=== PATIENT | female | born 1965 | race Caucasian/White ===

== ENCOUNTER 2019-10-01 17:03 | Outpatient (CLI) | payer OTHER, SELFPAY ==
--- NOTE | ~2019-10-01 | CT_ITS ---
EXAMINATION: CT lung screening DATE: 10/01/2019 17:30 INDICATION: Personal history of tobacco dependence, prior smoker with 45 pack year history TECHNIQUE: Computed tomography (CT) of the chest was performed without intravenous contrast. The dose -length product (DLP) was 66.65 mGy-cm. Automated exposure control and iterative reconstruction techn ique were employed. COMPARISON: 04/30/2018 FINDINGS: There is mild emphysema. Calcified pulmonary nodules are consistent with old granulomatous disease. No suspicious pulmonary nodules are identified. There is chronic focal scarring or atelectas is of the middle lobe. The lungs are free of focal airspace opacities. There is no pleural effusion o r pneumothorax. No pathologically enlarged thoracic lymph nodes are identified. The heart size is nor mal. There are surgical changes in the stomach. There is mild thoracic spondylosis. IMPRESSION: 1. Lung-RADS category 1: Negative. Continue annual screening with noncontrast low-dose chest CT in 12 months. Reviewed, dictated and finalized at location B. IMPRESSION: 1. Lung-RADS category 1: Negative. Continue annual screening with noncontrast l ow-dose chest CT in 12 months.
== END 2019-10-01 17:04 | disposition home or self-care (01) ==
LOC: ANHIMG 17:05
PROVIDERS: PCP Emergency Medicine; Visit Provider Emergency Medicine
DX: Z12.2 Encounter for screening for malignant neoplasm of respiratory organs (principal); Z87.891 Personal history of nicotine dependence
CPT/HCPCS: G0297

== ENCOUNTER 2019-11-05 17:04 | Emergency (ER) | payer OTHER, SELFPAY ==
--- NOTE | ~2019-11-05 | XR_ITS ---
EXAMINATION: XR chest 1V portable EXAM DATE: 11/05/2019 17:42 INDICATION: Shortness of breath, low back pain, left-sided posterior rib pain. Symptoms 3 days. Histo ry hypertension. TECHNIQUE: Portable AP frontal chest x-ray was obtained. Comparison is made to prior examination from 03/16/2019. FINDINGS: Scattered lung calcifications, granulomas. The lungs are otherwise clear. There are no ple ural effusions. The cardiomediastinal silhouette is within normal limits. There is no pneumothorax suspected. The bones and soft tissues are unremarkable. IMPRESSION: No acute cardiopulmonary findings. Reviewed, dictated and finalized at location A.
--- NOTE | ~2019-11-05 | CT_ITS ---
EXAMINATION: CT abdomen pelvis w con EXAM DATE: 11/05/2019 18:51 INDICATION: Left upper abdominal pain. TECHNIQUE: Spiral CT of the abdomen and pelvis was performed following intravenous injection of 100 m L Omnipaque 350. Axial, coronal and sagittal images were reviewed. The dose-length product (DLP) fo r this examination was 354.59 mGy-cm. The exposure was tailored according to patient size (auto mA e xposure control), and iterative reconstruction (ASIR) was used as additional dose reduction technique . Comparison is made to prior examination from 03/12/2017. FINDINGS: The liver, spleen, adrenal glands and pancreas are unremarkable. There are surgical clips in the gallbladder fossa. Some biliary duct dilation which is common finding following cholecystecto my. Portal and splenic veins are patent. Kidneys enhance symmetrically. There is no hydronephrosis . Scattered small renal cysts. The uterus is not identified and has likely been surgically resected. The bladder is unremarkable. There is no retroperitoneal or pelvic lymphadenopathy. There is mil d scattered arteriosclerotic disease. The appendix is normal. Gastroesophageal surgical change. There is mild sigmoid colonic diverticulos is. There is no adjacent inflammatory change to suggest diverticulitis. No free intraperitoneal gas . The heart is normal in size. There are no pericardial or pleural effusions. Several basilar gra nulomas. Tract from prior right hip gamma nail. There are no osteoblastic or osteolytic lesions iden tified. There is no significant interval change. IMPRESSION: 1. No acute intra-abdominal findings. Reviewed, dictated and finalized at location A.
[2019-11-05 17:09] VITALS: BP 148/84; PULSE 76; RESP 18; TEMP 37.1; O2SAT 98
--- NOTE | 2019-11-05 17:24 | ECG_ITS ---
Measurements Intervals [place] Rate: 61 P: 52 IA: 144 QRS: 35 QRSD: 101 T: 58 QT: 402 QTc: 407 Interpretive Statements SINUS RHYTHM BORDERLINE T WAVE ABNORMALITY- ANTERIOR LEADS BASELINE ARTIFACT- I, III, AVL, AVF BORDERLINE ECG Electronically Signed On 11-06-2019 7:00:11 CDT by Ronald Cisneros D.O.
--- NOTE | 2019-11-05 17:25 | ED.ABDPAIN ---
HPI - Abdominal Pain General Chief Complaint: Abdominal Pain Stated Complaint: Low Back Pain Time Seen by Provider: 11/05/19 17:13 Source: patient Mode of arrival: ambulatory Limitations: no limitations History of Present Illness HPI narrative: This patient is a 54 year old female who presents for evaluation of left flank pain. She states she developed pain yesterday. Her pain has gradually worsened. Her pain is left flank and it radiates around to left upper abdomen. This pain is worse with movement and breathing. She is chronically on oxycodone 20 mg and she states this is not helping with her pain. She denies associated nausea, vomiting, fever, chills, cough. Related Data Home Medications Medication Instructions Recorded Confirmed alprazolam 1 mg PO 11/05/19 amitriptyline 50 mg PO 11/05/19 escitalopram oxalate 20 mg PO 11/05/19 omeprazole 20 mg PO DAILY 11/05/19 oxycodone 20 mg PO DAILY 11/05/19 Allergies Allergy/AdvReac Type Severity Reaction Status Date / Time metronidazole Allergy Unknown Unknown Verified 11/05/19 17:14 topiramate Allergy Unknown Unknown Verified 11/05/19 17:14 Review of Systems Review of Systems: All systems reviewed & are unremarkable except as noted in HPI and below Constitutional: Constitutional: Denies chills and Denies fever(s) Cardiovascular: Cardiovascular: Denies rapid heart rate and Denies slow heart rate Respiratory: Respiratory: Denies cough, Reports dyspnea and Denies wheezing Gastrointestinal: Gastrointestinal: Reports abdominal pain, Denies nausea and Denies vomiting Genitourinary: Genitourinary: Denies hematuria, Denies dysuria and Reports flank pain [facility] Past Medical History Medical History (Updated 11/05/19 @ 21:35 by Maylin Lackey MD) Angina at rest Arthritis Asthma Bronchitis COPD (chronic obstructive pulmonary disease) CVA (cerebral vascular accident) Degenerative disk disease Diabetes Diverticulitis Emphysema of lung Fibromyalgia GERD (gastroesophageal reflux disease) Hypercholesterolemia Hypertension Irritable bowel syndrome Kidney stone Peripheral neuropathy Pneumonia Rectal polyp Sinus problem UTI (urinary tract infection) Surgical History Surgical History (Updated 03/16/19 @ 21:00 by Elida Gao) H/O inguinal hernia repair H/O: hysterectomy History of hip replacement History of knee replacement Hx of cholecystectomy Hx of tonsillectomy Family History Family History (Updated 02/15/15 @ 09:21 by DOCTOR UNKNOWN) Mother Family history of malignant neoplasm Family history of Alzheimer's disease Other Cerebrovascular accident Diabetes mellitus Family history of cardiovascular disease Family history of kidney disease Hypertension Social History Social History Smoking status: Current every day smoker Alcohol intake: never Gender identity (if verbalized by the patient): Female Exam Const: General: alert Orientation/consciousness: patient oriented x3 Other: mild distress Eyes: EOM: EOMs intact bilaterally Neck: Neck: no lymphadenopathy Chest: Chest palpation & inspection: normal inspection of the chest Resp: Effort & Inspection: normal respiratory effort and no retractions Auscultation: clear to auscultation bilaterally Cardio: Rate: regular rate Rhythm: regular rhythm Heart sounds: no murmurs GI: GI Palp: Yes Soft to palpation, Yes Tenderness to palpation present (GI) (LUQ ), No Guarding due to palpation present (GI) and No Rigid due to palpation Skin: General skin exam: normal color Rashes: no rashes Neuro: General: patient oriented x3 and moves all extremities Course Reevaluation(s) Reevaluation #1: Patient reports valium helped with her pain. I discussed no abnormality found on CT scan. No concern for PE. This may be abdominal wall muscle spasm. Date: 11/05/19 Time: 21:33 Vital Signs Vital signs: Vital Signs Temperature 98.7 F 11/05/19 17:09 Pulse Rate
[2019-11-05 17:52] LABS: Basophils Percent Auto 0.5 % (0.2-1.2); Eosinophils Absolute Auto 0.2 K/mm3 (0-0.3); Eosinophils Percent Auto 1.9 % (0-4.4); Hematocrit 43.5 % (37.0-47.0); Hemoglobin 14.3 g/dL (12.0-15.0); Immature Granulocyte Absolute 0.02 K/mm3 (0.00-0.031); Immature Granulocyte Percent A 0.3 % (0-0.5); Lymphocytes Absolute Auto 2.95 K/mm3 (0.9-3.2); Lymphocytes Percent Auto 38.3 % (18.3-44.2); Mean Corpuscular HGB Conc 32.9 g/dl (32-36); Mean Corpuscular Hemoglobin 29.3 pg (26-34); Mean Corpuscular Volume 89.1 fl (80-100); Mean Platelet Volume 10.3 fl (7.4-10.4); Monocytes Absolute Auto 0.3 K/mm3 (0.1-0.6); Neutrophils Absolute Auto 4.2 K/mm3 (1.3-6.7); Platelet Count Result 275 k/mm3 (150-375); Red Blood Count 4.88 M/mm3 (4.2-5.4); Red Cell Distribution Width 12.2 % (11.5-14.5); White Blood Count 7.7 K/mm3 (4.5-10.0)
[2019-11-05 18:00] LABS: Add Urine Microscopic? YES; Appearance Urine Clear (Clear); Bacteria Urine Trace /hpf; Bilirubin Urine Negative (Negative); Blood Urine Negative (Negative); Color Urine Yellow (Yellow); Glucose Urine UA Negative (Negative); Ketones Urine Negative (Negative); Leukocyte Esterase Ur 2+ LEU/UL (Negative); Mucus Urine Rare /lpf; Nitrate Urine Negative (Negative); Protein Urine Negative (Negative); RBC Urine 0-2 /hpf (0-2); Specific Grav Ur 1.015 (1.001-1.035); Squamous Epithelial Cell Urine Many /hpf (Few); Urobilinogen Urine Negative mg/dL (<2.0); WBC Urine 0-3 /hpf
[2019-11-05 18:02] LABS: Partial Thromboplastin Time 28.6 SECONDS (22.3-36.8); Prothrombin Time 13.2 Seconds (11.1-14.7)
[2019-11-05 18:04] LABS: Alanine Aminotransferase 16 U/L (4-35); Albumin Level 4.6 g/dL (3.5-5.1); Alkaline Phosphatase 61 U/L (38-126); Anion Gap 7 mmol/L (8-16); Aspartate Amino Transferase 27 U/L (14-36); Bilirubin,Total 0.4 mg/dL (0.2-1.3); Blood Urea Nitrogen 18 mg/dL (7-17); Calcium 9.5 mg/dL (8.4-10.2); Carbon Dioxide 27 mmol/L (22-30); Chloride 105 mmol/L (98-107); Estimated CRCL calculation 77 ml/min; Estimated Glomerular Filt Rate > 60; Glucose 99 mg/dL (65-105); Lipase 142 U/L (23-300); Potassium 4.4 mmol/L (3.4-5.0); Sodium 139 mmol/L (137-145)
[2019-11-05 18:05] LABS: D Dimer 0.32 ug/mL (<0.48)
[2019-11-05] MEDS: ONDANSETRON INJ 4 MG/2 ML VIAL IV PUSH (19:07)
[2019-11-05 19:31] VITALS: BP 130/80; PULSE 56; RESP 16; O2SAT 97
[2019-11-05 19:37] VITALS: TEMP 37.1
[2019-11-05 21:09] VITALS: BP 120/89; PULSE 59; RESP 18; O2SAT 96
[2019-11-05 21:56] VITALS: BP 128/80; PULSE 88; RESP 18; TEMP 36.6; O2SAT 99
== END 2019-11-05 21:57 | disposition home or self-care (01) ==
PROVIDERS: Emergency Provider General Practice; PCP Emergency Medicine
DX: R10.32 Left lower quadrant pain (principal); M19.90 Unspecified osteoarthritis, unspecified site; Z86.73 Personal history of transient ischemic attack (TIA), and cerebral infarction without residual deficits; J43.9 Emphysema, unspecified; M79.7 Fibromyalgia; K21.9 Gastro-esophageal reflux disease without esophagitis; E78.00 Pure hypercholesterolemia, unspecified; I10 Essential (primary) hypertension; K58.9 Irritable bowel syndrome, unspecified; Z87.442 Personal history of urinary calculi; E11.42 Type 2 diabetes mellitus with diabetic polyneuropathy; Z87.440 Personal history of urinary (tract) infections; F17.200 Nicotine dependence, unspecified, uncomplicated; Z96.649 Presence of unspecified artificial hip joint; Z96.659 Presence of unspecified artificial knee joint
CPT/HCPCS: 36415; 71045; 74177; 80053; 81001; 83690; 85025; 85380; 85610; 85730; 93005; 96374; 96375; 99284; J1170; J2405; J3360; Q9967

== ENCOUNTER 2020-07-08 16:42 | Emergency (ER) | payer OTHER, SELFPAY ==
--- NOTE | ~2020-07-08 | CT_ITS ---
EXAMINATION: CT abdomen pelvis w con EXAM DATE: 07/08/2020 20:57 INDICATION: Abdominal pain. Heavy vaginal bleeding with clots. Symptoms 3 days. TECHNIQUE: Spiral CT of the abdomen and pelvis was performed following intravenous injection of 100 m L Omnipaque 350. Axial, coronal and sagittal images of the abdomen and pelvis were reviewed. The do se-length product (DLP) for this examination was 549.72 mGy-cm. The exposure was tailored according to patient size (auto mA exposure control), and iterative reconstruction (ASIR) was used as additiona l dose reduction technique. Comparison is made to prior examination from 11/05/2019. FINDINGS: EXAMINATION: CT abdomen pelvis w con EXAM DATE: 07/08/2020 20:57 INDICATION: Left upper abdominal pain. TECHNIQUE: Spiral CT of the abdomen and pelvis was performed following intravenous injection of 100 m L Omnipaque 350. Axial, coronal and sagittal images were reviewed. The dose-length product (DLP) fo r this examination was 549.72 mGy-cm. The exposure was tailored according to patient size (auto mA e xposure control), and iterative reconstruction (ASIR) was used as additional dose reduction technique . Comparison is made to prior examination from 03/12/2017. FINDINGS: There is enhancement of both ureters and renal pelvises, along with the bladder urothelium. There is mild pericystic fat stranding. Cystitis and upper urinary tract infections bilaterally. No evidence of renal parenchymal involvement. The liver, spleen, adrenal glands and pancreas are unrema rkable. There are surgical clips in the gallbladder fossa. Some biliary duct dilation which is comm on finding following cholecystectomy. Portal and splenic veins are patent. Kidneys enhance symmetri dunia. There is no hydronephrosis. Scattered small renal cysts. The uterus is not identified and turner s likely been surgically resected. There is no retroperitoneal or pelvic lymphadenopathy. There is mild scattered arteriosclerotic disease. The appendix is not positively visualized. There is no pericecal inflammatory change to suggest appe ndicitis. There are surgical changes consistent with gastric sleeve procedure. There is mild sigmoi d colonic diverticulosis. There is no adjacent inflammatory change to suggest diverticulitis. No fr ee intraperitoneal gas. The heart is normal in size. There are no pericardial or pleural effusions . Several basilar granulomas. Tract from prior right hip gamma nail. There are no osteoblastic or o steolytic lesions identified. There is no significant interval change. IMPRESSION: Acute cystitis and upper urinary tract infections. Reviewed, dictated and finalized at location A.
[2020-07-08 17:21] VITALS: BP 127/93; PULSE 100; RESP 20; TEMP 36.8; O2SAT 98
[2020-07-08 17:31] LABS: Basophils Absolute Auto 0.1 K/mm3 (0.0-0.1); Basophils Percent Auto 0.5 % (0.2-1.2); Eosinophils Absolute Auto 0.3 K/mm3 (0-0.3); Eosinophils Percent Auto 2.2 % (0-4.4); Hematocrit 39.4 % (37.0-47.0); Hemoglobin 12.5 g/dL (12.0-15.0); Immature Granulocyte Absolute 0.06 K/mm3 (0.00-0.031); Immature Granulocyte Percent A 0.5 % (0-0.5); Lymphocytes Absolute Auto 3.17 K/mm3 (0.9-3.2); Lymphocytes Percent Auto 27.4 % (18.3-44.2); Mean Corpuscular HGB Conc 31.7 g/dl (32-36); Mean Corpuscular Hemoglobin 27.9 pg (26-34); Mean Corpuscular Volume 87.9 fl (80-100); Mean Platelet Volume 9.6 fl (7.4-10.4); Monocytes Absolute Auto 0.8 K/mm3 (0.1-0.6); Monocytes Percent Auto 6.6 % (2.6-8.5); Neutrophils Absolute Auto 7.3 K/mm3 (1.3-6.7); Neutrophils Percent Auto 62.8 % (45.5-73.1); Platelet Count Result 246 k/mm3 (150-375); Red Blood Count 4.48 M/mm3 (4.2-5.4); Red Cell Distribution Width 12.6 % (11.5-14.5); White Blood Count 11.6 K/mm3 (4.5-10.0)
[2020-07-08 17:41] LABS: Alanine Aminotransferase 11 U/L (4-35); Albumin Level 4.5 g/dL (3.5-5.1); Alkaline Phosphatase 66 U/L (38-126); Anion Gap 5 mmol/L (8-16); Aspartate Amino Transferase 27 U/L (14-36); Bilirubin,Total 0.5 mg/dL (0.2-1.3); Blood Urea Nitrogen 13 mg/dL (7-17); Calcium 9.8 mg/dL (8.4-10.2); Carbon Dioxide 31 mmol/L (22-30); Chloride 102 mmol/L (98-107); Estimated CRCL calculation 68 ml/min; Estimated Glomerular Filt Rate > 60; Glucose 93 mg/dL (65-105); Lipase 84 U/L (23-300); Potassium 3.9 mmol/L (3.4-5.0); Sodium 138 mmol/L (137-145)
[2020-07-08 20:32] LABS: Add Urine Microscopic? YES; Appearance Urine Cloudy (Clear); Bacteria Urine Trace /hpf; Bilirubin Urine Negative (Negative); Blood Urine 2+ (Negative); Color Urine Yellow (Yellow); Glucose Urine UA Negative (Negative); Ketones Urine Negative (Negative); Leukocyte Esterase Ur 3+ LEU/UL (Negative); Mucus Urine Few /lpf; Nitrate Urine Negative (Negative); Protein Urine 3+ mg/dL (Negative); RBC Urine >75 /hpf (0-2); Specific Grav Ur 1.014 (1.001-1.035); Squamous Epithelial Cell Urine Rare /hpf (Few); Urobilinogen Urine Negative mg/dL (<2.0); WBC Urine >75 /hpf
[2020-07-08 20:41] VITALS: BP 137/88; PULSE 72; RESP 20; O2SAT 100
[2020-07-08] MEDS: SODIUM CHLORIDE 0.9% IV 1,000 ML 999 ML IV CONT (20:42)
[2020-07-08] MEDS: MORPHINE SULFATE (*CRX) 4 MG/ML INJ IV PUSH (20:43)
[2020-07-08] MEDS: ONDANSETRON INJ 4 MG/2 ML VIAL IV PUSH (20:43)
--- NOTE | 2020-07-08 21:04 | ED.GENADULT ---
HPI - General Adult General Chief complaint: Abdominal Pain Stated complaint: abd pain, vaginal bleeding Time Seen by Provider: 07/08/20 19:47 History of Present Illness HPI narrative: Patient is a 35-year-old female presents to emergency department with chief complaint of abdominal pain and dysuria. Patient reports that she started having pain in her pelvic area and noticed that she was having burning with urination and feeling as though her baby's head was coming out whenever she would urinate. Patient also has noticed that whenever she urinated there was a little bit of blood in the urine as well and also whenever she wiped. The patient was concerned that she may have vaginal bleeding from this. Patient reports also she has had pain throughout her abdomen and reports she has prior history of a gastric sleeve. Related Data Home Medications Medication Instructions Recorded Confirmed alprazolam 1 mg PO 11/05/19 12/24/19 amitriptyline 50 mg PO 11/05/19 12/24/19 escitalopram oxalate 20 mg PO 11/05/19 12/24/19 omeprazole 20 mg PO DAILY 11/05/19 12/24/19 Allergies Allergy/AdvReac Type Severity Reaction Status Date / Time metronidazole Allergy Unknown Unknown Verified 12/24/19 10:59 topiramate Allergy Unknown Unknown Verified 12/24/19 10:59 Review of Systems Review of Systems: Narrative: A 10 system review of systems was completed on the patient and is negative except for what is stated in the HPI. Nursing and ancillary documentation was reviewed. [facility] Past Medical History Medical History Adenomatous colon polyp Angina at rest Arthritis Asthma Bronchitis COPD (chronic obstructive pulmonary disease) CVA (cerebral vascular accident) Degenerative disk disease Diabetes Diverticulitis Emphysema of lung Fibromyalgia GERD (gastroesophageal reflux disease) Hypercholesterolemia Hypertension Irritable bowel syndrome Kidney stone Left upper quadrant pain Peripheral neuropathy Pneumonia Rectal polyp Sinus problem UTI (urinary tract infection) Surgical History Surgical History H/O inguinal hernia repair H/O: hysterectomy History of hip replacement History of knee replacement Hx of cholecystectomy Hx of tonsillectomy S/P gastric surgery Family History Family History Mother Family history of malignant neoplasm Family history of Alzheimer's disease Other Cerebrovascular accident Diabetes mellitus Family history of cardiovascular disease Family history of kidney disease Hypertension Social History Social History Smoking status: Former smoker Tobacco type: cigarettes Alcohol intake: never Gender identity (if verbalized by the patient): Female Exam Narrative: Exam Narrative: GENERAL: Well-appearing, well-nourished, and in no acute distress. HEAD: Normocephalic, atraumatic. EYES: PERRLA and EOMI. ENT: Nares clear, no rhinorrhea or epistaxis. Mucous membranes moist. NECK: Supple. CHEST: Clear to auscultation. No respiratory distress. HEART: Regular rate and rhythm. No murmur heard. Normal peripheral pulses. ABDOMEN: Soft, diffusely tender to palpation, nondistended, normal active bowel sounds. EXTREMITIES: Normal range of motion. No edema. : Speculum exam showed no evidence of bleeding or trauma SKIN: Warm, dry, no rash. NEURO: No focal deficits. Alert and oriented x3. PSYCH: Normal mood and affect. Course Vital Signs Vital signs: Vital Signs Temperature 36.8 C 07/08/20 17:21 Pulse Rate 100 07/08/20 17:21 Respiratory Rate 20 07/08/20 17:21 Blood Pressure 127/93 H 07/08/20 17:21 Pulse Oximetry 98 07/08/20 17:21 Temperature 36.8 C 07/08/20 17:21 Pulse Rate 72 07/08/20 20:41 Respiratory Rate 20 07/08/20 20:41
[2020-07-08] MEDS: cefTRIAXone 1 GM VIAL IM (22:41)
[2020-07-08] MEDS: LIDOCAINE HCL 1% LOCAL INJ 20 ML VIAL (22:42)
[2020-07-08 22:43] VITALS: BP 131/72; PULSE 72; RESP 18; O2SAT 99
== END 2020-07-08 22:45 | disposition home or self-care (01) ==
PROVIDERS: Emergency Medicine; Emergency Provider Emergency Medicine; PCP Emergency Medicine
DX: N39.0 Urinary tract infection, site not specified (principal); R10.84 Generalized abdominal pain; J43.9 Emphysema, unspecified; E11.42 Type 2 diabetes mellitus with diabetic polyneuropathy; E78.00 Pure hypercholesterolemia, unspecified; I10 Essential (primary) hypertension; M19.90 Unspecified osteoarthritis, unspecified site; M79.7 Fibromyalgia; K21.9 Gastro-esophageal reflux disease without esophagitis; K58.9 Irritable bowel syndrome, unspecified; Z86.73 Personal history of transient ischemic attack (TIA), and cerebral infarction without residual deficits; Z87.442 Personal history of urinary calculi; Z86.010 Personal history of colon polyps; Z87.19 Personal history of other diseases of the digestive system; Z87.440 Personal history of urinary (tract) infections; Z96.649 Presence of unspecified artificial hip joint; Z96.659 Presence of unspecified artificial knee joint; Z87.891 Personal history of nicotine dependence
CPT/HCPCS: 36415; 74177; 80053; 81001; 83690; 85025; 87077; 87086; 87088; 87186; 96361; 96372; 96374; 96375; 99284; J0696; J2270; J2405; J7030; Q9967

== ENCOUNTER 2021-11-08 11:23 | Outpatient (CLI) | payer OTHER, SELFPAY ==
--- NOTE | ~2021-11-08 | CT_ITS ---
EXAMINATION: CT lung screening DATE: 11/08/2021 13:53 INDICATION: Personal history of nicotine dependence, prior smoker with 60 to pack year history TECHNIQUE: Computed tomography (CT) of the chest was performed without intravenous contrast. The dose -length product (DLP) was 70.25 mGy-cm. Automated exposure control and iterative reconstruction techn Vanderdroidue were employed. COMPARISON: 10/01/2019 FINDINGS: There is mild emphysema. There is mild atelectasis in the right middle lobe and left lower lobe. No suspicious pulmonary nodules are identified. Calcified pulmonary nodules are consistent with old granulomatous disease. No pleural effusion or pneumothorax. There are surgical changes in the st om[facility]. IMPRESSION: 1. Lung-RADS category 1: Negative. Continue annual screening with noncontrast low-dose chest CT in 12 months. Reviewed, dictated and finalized at location B. IMPRESSION: 1. Lung-RADS category 1: Negative. Continue annual screening with noncontrast l ow-dose chest CT in 12 months.
--- NOTE | ~2021-11-08 | MMUS_ITS ---
EXAMINATION: MM diagnostic emerald BI w bertha, US breast LT limited HISTORY: There are lateral left breast mass TECHNIQUE: Bilateral full field ML, MLO and CC and left spot ML and rotated lateral CC 3-D tomosynthe sis images were performed and synthetic 2-D images were generated. CAD analysis was submitted and int erpreted. High resolution targeted left breast ultrasound at area of clinical complaint in the very l ateral left breast breast ultrasound was performed. COMPARISON: 09/26/2018, 09/24/2017 bilateral screening mammogram examinations BREAST PARENCHYMAL COMPOSITION: There are scattered areas of fibroglandular density. FINDINGS: MAMMOGRAPHIC FINDINGS: Stable benign left axillary tail lymph node. No suspicious mass or architectural distortion, malignan t calcification, skin thickening or retraction or significant new or developing density is detected. ULTRASOUND: Targeted ultrasound at area of clinical complaint in the left lateral breast/chest reveals no suspici ous mass, shadowing, cyst or other significant sonographic finding. IMPRESSION: 1. No mammographic evidence of malignancy 2. Routine mammographic screening is recommended BI-RADS Category 2: Benign finding(s). Reviewed, dictated and finalized at location A. IMPRESSION: 1. No mammographic evidence of malignancy 2. Routine mammographic screening is recommended BI-RADS Category 2: Benign finding(s).
--- NOTE | ~2021-11-08 | DEXA_ITS ---
Bone Density Report Name: JESSE HERNÁNDEZ Age: 56 Sex: Female Ethnicity: White Date of : 1965 Indication: postmenopausal; screening for osteoporosis; height loss; prior fracture; hysterectomy; rheumatoid arthritis; Referring Provider: BENJAMIN LOPEZ Study: Bone densitometry was performed. Exam Date: November 08, 2021 Accession number: [id number] Bone Density: Region BMD T-score Z-score Classification AP Spine(L1-L4) 0.919 -1.2 0.1 Osteopenia Femoral Neck (Left) 0.774 -0.7 0.5 Normal Total Hip (Left) 0.969 0.2 1.1 Normal Femoral Neck (Right) 0.875 0.2 1.4 Normal Total Hip (Right) 0.996 0.4 1.3 Normal Total Hip Mean 0.983 0.3 1.2 Normal World Health Organization criteria for BMD impression classify patients as: Normal (T-score at or above -1.0), Osteopenia (T-score between -1.0 and -2.5), or Osteoporosis (T-score at or below -2.5). 10-year Fracture Risk: FRAX not reported because: Prior hip or vertebral fracture Previous Exams: Region Exam Age BMD T-score BMD Change BMD Change Date g/cm2 vs Baseline vs Previous AP Spine (L1-L4) 11/08/2021 56 0.919 -1.2 -0.024 (-2.5%) -0.031 (-3.3%) 10/30/2017 52 0.950 -0.9 0.007 (0.8%) 0.007 (0.8%) 05/10/2015 50 0.943 -0.9 Total Hip(Left) 11/08/2021 56 0.969 0.2 -0.126 (-11.5% -0.082 (-7.8%) 10/30/2017 52 1.051 0.9 -0.044 (-4.0%) -0.044 (-4.0%) 05/10/2015 50 1.095 1.3 *Denotes significance at 95% confidence level, LSC for AP Spine = 0.022 g/cm2, LSC for Total Hip = 0.027 g/cm2 Clinical Information Provided by Patient: Have had a previous hip or vertebral fracture Has had a low trauma fracture Has rheumatoid arthritis Has used the following medications: Vitamin D Has the following medical conditions: Hysterectomy Patient maximum height was 65 Menopause Age: 31 No regular weight bearing exercise Does not regularly consume dairy products Onset of menses at age 9 Number of children 8 Impression: The patient has low bone mass, based on the Total Spine T-score. The patient has risk factors, including: previous fracture. The BMD for the AP Spine (L1-L4) decreased, changing by -3.3% since the last DXA exam. The BMD for the Total Hip(Left) decreased, changing by -7.8% since the last DXA exam. Discussion: INCREASED RISK OF FRACTURE DUE TO HISTORY OF FRACTURE. The patient's previous fracture puts the patient at high risk of a future fracture. In untreated patients, the risk of osteoporotic fracture
== END 2021-11-08 11:24 | disposition home or self-care (01) ==
PROVIDERS: PCP Emergency Medicine; Visit Provider Emergency Medicine
DX: N63.20 Unspecified lump in the left breast, unspecified quadrant (principal); Z72.0 Tobacco use; Z13.820 Encounter for screening for osteoporosis; M85.88 Other specified disorders of bone density and structure, other site
CPT/HCPCS: 71271; 76642; 77062; 77066; 77080; G0279

== ENCOUNTER 2022-05-04 01:51 | Day surgery (SDC) | payer OTHER, SELFPAY ==
[2022-04-26 10:58] VITALS: BMI 27.8
[2022-05-04 11:29] VITALS: BP 120/68; PULSE 68; RESP 18; TEMP 36.2; O2SAT 94
[2022-05-04] MEDS: LACTATED RINGERS 1,000 ML 150 ML IV CONT (11:41)
--- NOTE | 2022-05-04 12:28 | WPDANESEPPF ---
Anes - Initial Pre Proc Eval Procedure: Operation Date: 05/04/22 12:30 Proposed Procedures p Esophagogastroduodenoscopy & Colonoscopy - Mello Craven MD Date/Time: 05/04/22 12:28 Surgeon: Mello Craven MD Pre Op Diagnosis: weight loss, Diarrhea Patient Data Age: 57 Gender: F Height: 1.65 m Weight: 73.8 kg Last Vital Signs Temp 36.2 C L 05/04/22 11:29 Pulse 68 05/04/22 11:29 Resp 18 05/04/22 11:29 BP 120/68 05/04/22 11:29 Pulse Ox 94 05/04/22 11:29 O2 Del Method Room Air 05/04/22 11:29 Allergies Allergy/AdvReac Type Severity Reaction Status Date / Time metronidazole Allergy Unknown Unknown Verified 05/04/22 11:27 topiramate Allergy Unknown Unknown Verified 05/04/22 11:27 Home Medications Medication Instructions Recorded Confirmed Type alprazolam 1 mg tablet 1 mg PO TID 11/05/19 04/26/22 History buprenorphine 8 mg-naloxone 2 mg 1 film buccal TID 02/08/22 04/26/22 History sublingual film (Suboxone) acetaminophen 325 mg capsule 650 mg PO Q6-8H PRN Pain 04/26/22 04/26/22 History (Tylenol) Patient hx anesthesia problems: none Family hx anesthesia problems: none Results Review: All pre-operative results and documents have been reviewed as part of the pre-operative evaluation. [facility] Past Medical History Medical History (Updated 02/08/22 @ 14:57 by Mello Craven MD) Adenomatous colon polyp Angina at rest Arthritis Asthma Bronchitis Chronic diarrhea COPD (chronic obstructive pulmonary disease) CVA (cerebral vascular accident) Degenerative disk disease Diabetes Diverticulitis Emphysema of lung Fibromyalgia GERD (gastroesophageal reflux disease) Hypercholesterolemia Hypertension Irritable bowel syndrome Kidney stone Left upper quadrant pain Peripheral neuropathy Pneumonia Rectal polyp Sinus problem UTI (urinary tract infection) Surgical History Surgical History (Updated 02/08/22 @ 14:57 by Mello Craven MD) H/O endoscopy H/O inguinal hernia repair H/O: hysterectomy History of hip replacement History of knee replacement Hx of cholecystectomy Hx of tonsillectomy S/P gastric surgery Family History Family History Mother Family history of malignant neoplasm Family history of Alzheimer's disease Other Cerebrovascular accident Diabetes mellitus Family history of cardiovascular disease Family history of kidney disease Hypertension Social History Social History Smoking status: Former smoker Tobacco type: cigarettes Alcohol intake: never Substance use type: does not use Living arrangements: with family Gender identity (if verbalized by the patient): Female Spiritual care concerns: No Anes - Eval Final PreProcedure Day of Procedure 05/04/22 12:28 Patient weight: overweight Heart: regular rate and rhythm Lungs: clear to auscultation and normal air movement Airway: Mallampati scale class II Neurological: alert and oriented Last oral intake: >/= 8 hours ASA classification: III Emergent: no Anesthetic plan: proceed Anesthesia type and monitoring: general GIVS Results Review: All pre-operative results and documents have been reviewed as part of the pre-operative evaluation. Informed Consent: The patient's anesthetic plan and its attendant risks and benefits were discussed with the patient/family/POA. Questions were solicited and answers provided to the satisfaction of the patient/family/POA.
--- NOTE | 2022-05-04 12:41 | PM.HPGS ---
History of Present Illness History of Present Illness Consent: Risks, benefits, and alternatives have been discussed and questions answered. Patient agrees to proceed with procedure. Chief complaint: weight loss, Diarrhea Narrative: Meryl Phillips is a 57 year old female here for egd and colonoscopy, she had in?2018 gastric sleeve and repair of hernia with mesh, lost about 150lb, gerd on omeprazole (she had egd and colonoscopy just previous surgery, had polyps). Lately with diarrhea and more weight loss, using questran but can not tell if helping much. Review of Systems Constitutional: Constitutional: Denies headache(s) and Denies weakness Eyes: Eyes: Denies blurry vision ENT: Reports Normal hearing present, Denies headache(s) and Denies neck pain Cardiovascular: Cardiovascular: Denies chest pain and Denies dyspnea Respiratory: Respiratory: Denies dyspnea Gastrointestinal: Gastrointestinal: Reports no additional gastrointestinal complaints Genitourinary: Genitourinary: Denies dysuria Musculoskeletal: Musculoskeletal: Denies neck pain Integumentary/Breasts: Skin/Breast: Denies dry skin Neurologic: Reports Normal hearing present, Denies headache(s) and Denies weakness Psychiatric: Psychiatric: Denies anxiety Endocrine: Endocrine: Denies change in body appearance Hematologic/Lymphatic: Hematologic/Lymphatic: Denies easy bleeding Allergic/Immunologic: Allergic/Immunologic: Denies urticaria PMFSH Past Medical History Medical History (Updated 02/08/22 @ 14:57 by Mello Craven MD) Adenomatous colon polyp Angina at rest Arthritis Asthma Bronchitis Chronic diarrhea COPD (chronic obstructive pulmonary disease) CVA (cerebral vascular accident) Degenerative disk disease Diabetes Diverticulitis Emphysema of lung Fibromyalgia GERD (gastroesophageal reflux disease) Hypercholesterolemia Hypertension Irritable bowel syndrome Kidney stone Left upper quadrant pain Peripheral neuropathy Pneumonia Rectal polyp Sinus problem UTI (urinary tract infection) Surgical History Surgical History (Updated 02/08/22 @ 14:57 by Mello Craven MD) H/O endoscopy H/O inguinal hernia repair H/O: hysterectomy History of hip replacement History of knee replacement Hx of cholecystectomy Hx of tonsillectomy S/P gastric surgery Family History Family History Mother Family history of malignant neoplasm Family history of Alzheimer's disease Other Cerebrovascular accident Diabetes mellitus Family history of cardiovascular disease Family history of kidney disease Hypertension Social History Social History Smoking status: Former smoker Tobacco type: cigarettes Alcohol intake: never Substance use type: does not use Living arrangements: with family Gender identity (if verbalized by the patient): Female Spiritual care concerns: No Meds Home Medications and Allergies Home Medications Medication Instructions Recorded Confirmed Type alprazolam 1 mg tablet 1 mg PO TID 11/05/19 04/26/22 History buprenorphine 8 mg-naloxone 2 mg 1 film buccal TID 02/08/22 04/26/22 History sublingual film (Suboxone) acetaminophen 325 mg capsule 650 mg PO Q6-8H PRN Pain 04/26/22 04/26/22 History (Tylenol) Allergies Allergy/AdvReac Type Severity Reaction Status Date / Time metronidazole Allergy Unknown Unknown Verified 05/04/22 11:27 topiramate Allergy Unknown Unknown Verified 05/04/22 11:27 Vital Signs Vital Signs - 24 hr 05/04/22 11:29 Temperature 97.2 F L Pulse Rate 68 Respiratory Rate 18 Blood Pressure 120/68 Pulse Oximetry 94 Oxygen Delivery Room Air Exam Const: General: comfortable and no acute distress HENMT: Face/Nose/Sinus: Normal nares present Eyes: General: appearance normal, both eyes and all related structures Neck: Neck:
[2022-05-04 13:15] VITALS: BP 102/58; PULSE 58; RESP 20; O2SAT 100
[2022-05-04 13:25] VITALS: BP 113/62; PULSE 52; RESP 20; O2SAT 100
[2022-05-04 13:35] VITALS: BP 121/73; PULSE 50; RESP 20; O2SAT 100
== END 2022-05-04 13:48 | disposition home or self-care (01) ==
PROVIDERS: PCP Emergency Medicine; Visit Provider Internal Medicine Gastroenterology
PROC: 0DJ08ZZ Inspection of Upper Intestinal Tract, Via Natural or Artificial Opening Endoscopic (ICD-10-PCS; CPT 43235; principal; 2022-05-04 12:30)
DX: R19.7 Diarrhea, unspecified (principal); D12.4 Benign neoplasm of descending colon; D12.3 Benign neoplasm of transverse colon; K29.50 Unspecified chronic gastritis without bleeding; K44.9 Diaphragmatic hernia without obstruction or gangrene; K21.9 Gastro-esophageal reflux disease without esophagitis; J44.9 Chronic obstructive pulmonary disease, unspecified; K58.9 Irritable bowel syndrome, unspecified; K57.30 Diverticulosis of large intestine without perforation or abscess without bleeding; I10 Essential (primary) hypertension; E11.42 Type 2 diabetes mellitus with diabetic polyneuropathy; E78.00 Pure hypercholesterolemia, unspecified; M79.7 Fibromyalgia; M19.90 Unspecified osteoarthritis, unspecified site; Z96.659 Presence of unspecified artificial knee joint; Z86.73 Personal history of transient ischemic attack (TIA), and cerebral infarction without residual deficits; Z96.649 Presence of unspecified artificial hip joint; Z98.84 Bariatric surgery status
CPT/HCPCS: 45385; 45380; 43239; 88305; 88342; J2704; J7120

== ENCOUNTER 2022-08-14 14:53 | Outpatient (CLI) | payer OTHER, SELFPAY ==
--- NOTE | ~2022-08-14 | XR_ITS ---
Cervical Spine: AP, lateral, oblique, open-mouth views Clinical History: Pain Findings: The normal lordotic curve is maintained. No fracture or subluxation evident. There is advan tena degenerative disc narrowing at C5-C6 and C6-C7. There is mild facet arthropathy in the cervical s pine. Pre-vertebral soft tissues are unremarkable. Impression: Mild to moderate degenerative spondylosis, as above. Reviewed, dictated and finalized at location M. Impression: Mild to moderate degenerative spondylosis, as above.
--- NOTE | ~2022-08-14 | XR_ITS ---
Lumbosacral Spine: AP, oblique, and lateral views, with neutral, flexion, and extension positioning Clinical History: Pain Findings: The normal lordotic curve is maintained. The vertebral bodies and posterior elements are i ntact. No instability seen on flexion or extension. There is mild degenerative disc narrowing at L4-L 5. The remaining intervertebral disc spaces are preserved. There is moderate facet arthropathy from L 4 through S1. The sacroiliac joints are normally outlined. Impression: Mild degenerative spondylosis at the lower lumbar spine, as detailed above. Reviewed, dictated and finalized at location M. Impression: Mild degenerative spondylosis at the lower lumbar spine, as detailed above.
--- NOTE | ~2022-08-14 | XR_ITS ---
EXAMINATION: XR hip LT min 2V, XR femur LT min 2V, XR femur RT min 2V, XR hip RT min 2V DATE: 08/14/2022 15:34 INDICATION: Bilateral lower extremity pain TECHNIQUE: 1. Anteroposterior and frog-leg lateral views of the left hip were obtained. 2. Anteroposterior and lateral views of the left femur were obtained on overlapping proximal and dist al images. 3. Anteroposterior and frog-leg lateral views of the right hip were obtained. 4. Anteroposterior and lateral views of the right femur were obtained on overlapping proximal and dis rudy images. COMPARISON: None. FINDINGS: Old healed fracture deformity right femoral neck fracture which is healed with mild varus angulation. Screw tracks at the femoral neck consistent with previously removed internal fixation. There is a re sidual fractured fixation screw extending across the proximal diaphysis of the right femur. There are also bilateral chronic femoral mid diaphyseal fractures which have healed in near-anatomic alignment . No acute fractures identified. Severe osteoarthritis at the right hip with severe cephalad predomin ant nonuniform joint space narrowing with some remodeling of the articular surface at the apex of the femoral head and superolateral right acetabulum. Moderate-sized associated marginal osteophytes. Mil d osteoarthritis of the left hip and bilateral sacral iliac joints. There is also mild osteoarthritis at the patellofemoral compartments of both knees. No knee joint effusions. There is heterotopic ossi fication along the proximal aspect of the left and right greater trochanters additional heterotopic o ssicles project over the left and right buttocks. Multiple phleboliths in the pelvis. IMPRESSION: 1. Bilateral old healed femoral fracture as detailed above. No acute osseous abnormality. 2. Polyarticular osteoarthritis, severe at the right hip and mild at the left hip and bilateral sacro iliac and knee joints. Reviewed, dictated and finalized at location A. IMPRESSION: 1. Bilateral old healed femoral fracture as detailed above. No acute osseous ab normality. 2. Polyarticular osteoarthritis, severe at the right hip and mild at the left h ip and bilateral sacroiliac and knee joints. IMPRESSION: 1. Bilateral old healed femoral fracture as detailed above. No acute osseous ab normality. 2. Polyarticular osteoarthritis, severe at the right hip and mild at the left h ip and bilateral sacroiliac and knee joints. IMPRESSION: 1. Bilateral old healed femoral fracture as detailed above. No acute osseous ab normality. 2. Polyarticular osteoarthritis, severe at the right hip and mild at the left h ip and bilateral sacroiliac and knee joints.
== END 2022-08-14 14:54 | disposition home or self-care (01) ==
PROVIDERS: PCP Emergency Medicine; Visit Provider Nurse Practitioner Adult Health
DX: M47.26 Other spondylosis with radiculopathy, lumbar region (principal); M47.892 Other spondylosis, cervical region; M16.0 Bilateral primary osteoarthritis of hip; M53.3 Sacrococcygeal disorders, not elsewhere classified
CPT/HCPCS: 72050; 72114; 73502; 73552

== ENCOUNTER 2022-09-14 15:16 | Emergency (ER) | payer OTHER, SELFPAY ==
[2022-09-14] VITALS (17 sets, daily range): BP systolic 160–178; BP diastolic 85–105; PULSE 48–59; RESP 12–20; TEMP 36.3–36.7; O2SAT 95–100
--- NOTE | ~2022-09-14 | CT_ITS ---
EXAMINATION: CT brain wo con DATE: 09/14/2022 16:38 INDICATION: hypertension, SANCHEZ, vertigo . TECHNIQUE: Computed tomography (CT) of the head was performed without intravenous contrast. The mA wa s adjusted according to patient size. Iterative reconstruction technique was employed. The dose-lengt h product was 605.33 mGy-cm. COMPARISON: 03/30/2014. FINDINGS: No acute intracranial hemorrhage or extra-axial fluid collection. No hydrocephalus, mass, or herniation. No acute ischemic infarct. Unremarkable dural venous sinus attenuation. No acute osseous abnormality. Small right frontal osteoma. The aerated spaces are clear. IMPRESSION: No acute intracranial process. Reviewed, dictated and finalized at location K.
--- NOTE | ~2022-09-14 | XR_ITS ---
XR chest 2V DATE: 09/14/2022 15:44 INDICATION: Chest pain for one day. History of hypertension. TECHNIQUE: PA and lateral views COMPARISON: 11/08/2021 CT lung screening FINDINGS: Normal heart size. No hilar or mediastinal enlargement. Scattered bilateral calcified pulmonary granulomas consistent with old granulomatous disease. No pulm onary infiltrate or consolidation, pleural effusion or pulmonary vascular congestion or pneumothorax. Mild thoracic levoscoliosis Surgical clips, right upper quadrant, likely due to cholecystectomy. IMPRESSION: No active cardiopulmonary disease Reviewed, dictated and finalized at location B.
--- NOTE | 2022-09-14 15:17 | ECG_ITS ---
Measurements Intervals [place] Rate: 58 P: 49 CO: 150 QRS: 37 QRSD: 96 T: 52 QT: 415 QTc: 410 Interpretive Statements SINUS BRADYCARDIA BORDERLINE T WAVE ABNORMALITY- ANTERIOR LEADS BORDERLINE ECG COMPARED TO ECG 11/05/2019 17:54:50 SINUS BRADYCARDIA NOW PRESENT Electronically Signed On 09-14-2022 15:41:10 CDT by Ronald Cisneros D.O.
[2022-09-14 15:44] LABS: Basophils Percent Auto 0.6 % (0.2-1.2); Eosinophils Absolute Auto 0.1 K/mm3 (0-0.3); Eosinophils Percent Auto 2.7 % (0-4.4); Hematocrit 35.9 % (37.0-47.0); Hemoglobin 11.9 g/dL (12.0-15.0); Immature Granulocyte Absolute 0.01 K/mm3 (0.00-0.031); Immature Granulocyte Percent A 0.2 % (0-0.5); Lymphocytes Absolute Auto 2.44 K/mm3 (0.9-3.2); Lymphocytes Percent Auto 51.3 % (18.3-44.2); Mean Corpuscular HGB Conc 33.1 g/dl (32-36); Mean Corpuscular Hemoglobin 29.7 pg (26-34); Mean Corpuscular Volume 89.5 fl (80-100); Mean Platelet Volume 9.8 fl (7.4-10.4); Monocytes Absolute Auto 0.2 K/mm3 (0.1-0.6); Neutrophils Absolute Auto 1.9 K/mm3 (1.3-6.7); Neutrophils Percent Auto 40.2 % (45.5-73.1); Platelet Count Result 191 k/mm3 (150-375); Red Blood Count 4.01 M/mm3 (4.2-5.4); Red Cell Distribution Width 11.9 % (11.5-14.5); White Blood Count 4.8 K/mm3 (4.5-10.0)
--- NOTE | 2022-09-14 15:53 | ED.GENADULT ---
HPI - General Adult General Chief complaint: Chest Pain Stated complaint: hypertension, chest pain Time Seen by Provider: 09/14/22 15:48 Source: patient Mode of arrival: ambulatory Limitations: no limitations History of Present Illness HPI narrative: This is a 57-year-old female who presents to the ED with Multiple complaints. Concern for elevated blood pressures over the last couple of weeks. Also had chest pain beginning this morning. States she was seen by her primary care who was concerned for this and told her to monitor at home. She states that today she started to have chest pain that radiated into the left shoulder and arm. She denies vomiting but endorses nausea at the time. states CP has largely resolved. Endorses lightheadedness that is also resolved. Reports history of vertigo but none today. Endorses anxiety over her BP's. Denies any LOC. Denies shortness of breath. Reports blood pressure of 238/100 at home. States she has been checking it several times per day. Reports Hx of minor heart attacks and mini strokes but never any stent placement. Does not take blood thinners. Reports gastric sleeve surgical Hx. Related Data Home Medications Medication Instructions Recorded Confirmed alprazolam 1 mg tablet 1 mg PO TID 11/05/19 04/26/22 buprenorphine 8 mg-naloxone 2 mg 1 film buccal TID 02/08/22 04/26/22 sublingual film (Suboxone) acetaminophen 325 mg capsule 650 mg PO Q6-8H PRN Pain 04/26/22 04/26/22 (Tylenol) Allergies Allergy/AdvReac Type Severity Reaction Status Date / Time metronidazole Allergy Unknown Unknown Verified 09/14/22 16:03 topiramate Allergy Unknown Unknown Verified 09/14/22 16:03 [facility] Past Medical History Medical History (Updated 09/14/22 @ 18:31 by Shamir Mesa PA-C) Adenomatous colon polyp Angina at rest Arthritis Asthma Bronchitis Chronic diarrhea COPD (chronic obstructive pulmonary disease) CVA (cerebral vascular accident) Degenerative disk disease Diabetes Diverticulitis Emphysema of lung Fibromyalgia GERD (gastroesophageal reflux disease) Hypercholesterolemia Hypertension Irritable bowel syndrome Kidney stone Left upper quadrant pain Peripheral neuropathy Pneumonia Rectal polyp Sinus problem UTI (urinary tract infection) Surgical History Surgical History (Updated 02/08/22 @ 14:57 by Mello Craven MD) H/O endoscopy H/O inguinal hernia repair H/O: hysterectomy History of hip replacement History of knee replacement Hx of cholecystectomy Hx of tonsillectomy S/P gastric surgery Family History Family History Mother Family history of malignant neoplasm Family history of Alzheimer's disease Other Cerebrovascular accident Diabetes mellitus Family history of cardiovascular disease Family history of kidney disease Hypertension Social History Social History Smoking status: Former smoker Tobacco type: cigarettes Alcohol intake: never Substance use type: does not use Living arrangements: with family Gender identity (if verbalized by the patient): Female Spiritual care concerns: No Exam Narrative: GENERAL: Well-appearing, well-nourished, and in no acute distress. HEAD: Normocephalic, atraumatic. EYES: PERRLA and EOMI. ENT: Nares clear, no rhinorrhea or epistaxis. Mucous membranes moist. Oropharynx without tonsillar hypertrophy exudate or other lesions. NECK: Supple. No adenopathy or masses. CHEST: No respiratory distress. Clear to auscultation. No wheezes rales or rhonchi HEART: Regular rate and rhythm. No murmur heard. Normal peripheral pulses. ABDOMEN: Soft, nontender, nondistended, normal active bowel sounds. MSK: Normal range of motion. No edema. SKIN: Warm, dry, no rash. NEURO: Alert and oriented x3. No focal deficits. PSYCH: Normal mood and affect. Course Vital Signs Vital
[2022-09-14 15:54] LABS: Partial Thromboplastin Time 30.2 SECONDS (22.3-36.8); Prothrombin Time 13.6 Seconds (11.1-14.7)
[2022-09-14 15:55] LABS: Alanine Aminotransferase 15 U/L (6-35); Albumin Level 4.1 g/dL (3.5-5.1); Alkaline Phosphatase 53 U/L (38-126); Anion Gap 9 mmol/L (8-16); Aspartate Amino Transferase 25 U/L (14-36); Bilirubin,Total 0.4 mg/dL (0.2-1.3); Blood Urea Nitrogen 11 mg/dL (7-17); Carbon Dioxide 27 mmol/L (22-30); Chloride 103 mmol/L (98-107); Estimated CRCL calculation 102 ml/min; Estimated Glomerular Filt Rate > 60; Glucose 123 mg/dL (65-110); Lipase 72 U/L (23-300); Potassium 3.8 mmol/L (3.4-5.0); Sodium 139 mmol/L (137-145)
[2022-09-14 16:05] LABS: Troponin I < 0.012 ng/mL (0.000-0.034)
[2022-09-14 16:33] LABS: D Dimer 0.38 ug/mL (<0.48)
[2022-09-14 18:32] LABS: Troponin I < 0.012 ng/mL (0.000-0.034)
== END 2022-09-14 18:41 | disposition home or self-care (01) ==
PROVIDERS: Emergency Medicine; Emergency Provider Physician Assistant; PCP Emergency Medicine
DX: R07.89 Other chest pain (principal); I10 Essential (primary) hypertension; J43.9 Emphysema, unspecified; E78.00 Pure hypercholesterolemia, unspecified; E11.42 Type 2 diabetes mellitus with diabetic polyneuropathy; K21.9 Gastro-esophageal reflux disease without esophagitis; M79.7 Fibromyalgia; K58.9 Irritable bowel syndrome, unspecified; Z98.84 Bariatric surgery status; Z96.649 Presence of unspecified artificial hip joint; Z96.659 Presence of unspecified artificial knee joint; Z86.73 Personal history of transient ischemic attack (TIA), and cerebral infarction without residual deficits; Z87.01 Personal history of pneumonia (recurrent); Z87.440 Personal history of urinary (tract) infections; Z86.010 Personal history of colon polyps; Z87.19 Personal history of other diseases of the digestive system; Z87.442 Personal history of urinary calculi; Z87.891 Personal history of nicotine dependence; Z90.710 Acquired absence of both cervix and uterus; Z90.49 Acquired absence of other specified parts of digestive tract
CPT/HCPCS: 36415; 70450; 71046; 80053; 83690; 84484; 85025; 85380; 85610; 85730; 93005; 99284

== ENCOUNTER 2022-12-05 09:16 | Outpatient (CLI) | payer OTHER, SELFPAY ==
--- NOTE | ~2022-12-05 | US_ITS ---
US abdomen complete EXAMINATION: US Abdomen Complete INDICATION: Hepatitis C PROCEDURE: Realtime High Resolution abdomen ultrasound. COMPARISON: No prior studies for comparison FINDINGS: Bladder is surgically absent. Common bile duct measures 10.4 mm. Liver echotexture within normal limits without focal mass. Pancreas duct is mildly prominent. Pancre atic tail is obscured by bowel gas. Spleen is unremarkeable. Renal echotexture is within normal limi ts bilaterally without hydronephrosis, contour deforming mass or renal stone. Right kidney measures 1 0.9 cm. Left kidney measures 10.3 cm. There are bilateral renal cysts. Visualized aspects of the aorta and IVC are within normal limits. Portal vein is patent. No sonograph ic Wise's sign indicated by the technologist. IMPRESSION: 1: Status post cholecystectomy with expected prominence of the bile ducts. Reviewed, dictated and finalized at location B.
== END 2022-12-05 09:17 | disposition home or self-care (01) ==
PROVIDERS: PCP Emergency Medicine; Referring Provider Internal Medicine Gastroenterology; Visit Provider Emergency Medicine
DX: B19.20 Unspecified viral hepatitis C without hepatic coma (principal); Z90.49 Acquired absence of other specified parts of digestive tract
CPT/HCPCS: 76700

== ENCOUNTER → 2024-03-05 15:51 | Outpatient (REF) | payer OTHER, SELFPAY | LOC: ANHLAB 15:51 | PROVIDERS: PCP Emergency Medicine; Visit Provider Physician Assistant Surgical | DX: C44.319 Basal cell carcinoma of skin of other parts of face (principal) | CPT/HCPCS: 88305 ==

== ENCOUNTER 2024-10-12 15:08 | Outpatient (CLI) | payer OTHER, SELFPAY ==
--- NOTE | ~2024-10-12 | MM_ITS ---
EXAMINATION: MM screening emerald BI w bertha HISTORY: Screening mammogram, family history of breast cancer in her mother. TECHNIQUE: Craniocaudal and mediolateral oblique 3-D tomosynthesis images were obtained and synthetic 2-D images were generated. CAD analysis was submitted and interpreted. COMPARISON: 11/08/2021 BREAST PARENCHYMAL COMPOSITION:Not Dense. The breasts are almost entirely fatty FINDINGS: No suspicious mass, calcification, or architectural distortion are identified in either breast to suggest malignancy. There has been no suspicious interval change. IMPRESSION: No mammographic evidence of malignancy. Recommend routine screening mammography in one year. BI-RADS Category 1: Negative Reviewed, dictated and finalized at location .
--- OUTSIDE RECORDS SUMMARY | 2024-10-12 15:58 | XMS_ITS | Patient Health Record ---
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 Name Role Phone Del Whitaker Primary Care Provider [phone] Justin Siobhan Unavailable [phone] Sasha Escobar Unavailable [phone] Jacquelin Smith Unavailable [phone] Allergies Allergen (clinical drug ingredient) Drug/Non Drug Allergy documented on EMR Reaction Allergy Type Onset Date Status topiramate Topiramate Unknown Drug Allergy Activ e Results Component Value Reference Range Notes Buprenorphine and Metabolite (Urine test) Reviewed date:09/24/2024 05:42:34 PM Interpretation: Performing Lab:[facility], [address] [employer], [place], Phone - [phone], Director - PhDAbudu Notes/Report: Clinical Information:[id number] Buprenorphine Positive Confirmation p erformed by Mass Spectrometry Buprenorphine Positive Buprenorphine Conf, MS, UR >2000 Cutoff=10 ng/m L Norbuprenorphine Positive Norbuprenorphine Conf, MS, UR >2000 Cutoff=10 n g/mL 12 Panel Urine Drug Screen Reviewed date:12/31/2023 08:50:47 AM Interpretation: Performing Lab: Notes/Report: THC neg PAULA neg MOP (OPI) neg AMP neg MET neg BAR neg BZO POS MDMA neg MTD neg OXY neg PCP neg BUP POS 14 Panel Urine Drug Screen Reviewed date:09/18/2024 08:37:17 AM Interpretation: Performing Lab: Notes/Report: THC neg PAULA neg MOP (OPI) neg AMP neg MET neg BAR neg BZO POS MDMA neg MTD neg OXY neg PCP neg BUP POS TCA neg FTY neg 12 Panel Urine Drug Screen Reviewed date:01/28/2024 08:33:58 AM Interpretation: Performing Lab: Notes/Report: THC neg PAULA neg MOP (OPI) neg AMP neg MET neg BAR neg BZO POS MDMA neg MTD neg OXY neg PCP neg BUP POS 12 Panel Urine Drug Screen Reviewed date:06/22/2024 08:31:31 AM Interpretation: Performing Lab: Notes/Report: THC neg PAULA neg MOP (OPI) neg AMP neg MET neg BAR neg BZO POS MDMA neg MTD neg OXY neg PCP neg BUP POS 12 Panel Urine Drug Screen Reviewed date:05/22/2024 11:15:18 AM Interpretation: Performing Lab: Notes/Report: THC neg PAULA neg MOP (OPI) neg AMP neg MET neg BAR neg BZO POS MDMA neg MTD neg OXY neg PCP neg BUP POS Buprenorphine and Metabolite (Urine test) Reviewed date:03/02/2024 08:59:46 AM Interpretation: Performing Lab:[facility], [address] [employer], [facility], Phone - [phone], Director - PhDAbudu Notes/Report: Clinical Information:[id number] Buprenorphine Positive Confirmation p erformed by Mass Spectrometry Buprenorphine Positive Buprenorphine Conf, MS, UR 957 Cutoff=10 ng/m L Norbuprenorphine Positive Norbuprenorphine Conf, MS, UR >2000 Cutoff=10 n g/mL 12 Panel Urine Drug Screen Reviewed date:02/25/2024 08:45:54 AM Interpretation: Performing Lab: Notes/Report: THC neg PAULA neg MOP (OPI) neg AMP neg MET neg BAR neg BZO POS MDMA neg MTD neg OXY neg PCP neg BUP POS 14 Panel Urine Drug Screen Reviewed date:08/21/2024 08:18:54 AM Interpretation: Performing Lab: Notes/Report: THC neg PAULA neg MOP (OPI) neg AMP neg MET neg BAR neg BZO POS MDMA neg MTD neg OXY neg PCP neg BUP POS TCA neg FTY neg 12 Panel Urine Drug Screen Reviewed date:04/24/2024 08:42:33 AM Interpretation: Performing Lab: Notes/Report: THC neg PAULA neg MOP (OPI) neg AMP neg MET neg BAR neg BZO POS MDMA neg MTD neg OXY neg PCP neg BUP POS 12 Panel Urine Drug Screen Reviewed date:03/26/2024 10:46:58 AM Interpretation: Performing Lab: Notes/Report: THC NEG PAULA NEG MOP (OPI) NEG AMP NEG MET NEG BAR NEG BZO POS MDMA NEG MTD NEG OXY NEG PCP NEG BUP POS 12 Panel Urine Drug Screen Reviewed date:10/30/2023 01:57:33 PM Interpretation: Performing Lab: Notes/Report: THC neg PAULA neg MOP (OPI) neg AMP neg MET neg BAR neg BZO POS MDMA neg MTD neg OXY neg PCP neg BUP POS 12 Panel Urine Drug Screen Reviewed date:07/22/2024 08:15:36 AM Interpretation: Performing Lab: Notes/Report: THC neg PAULA neg MOP (OPI) neg AMP neg MET neg BAR neg BZO POS MDMA neg MTD neg OXY neg PCP neg BUP POS 12 Panel Urine Drug Screen Reviewed date:11/28/2023 09:02:49 AM Interpretation: Performing Lab: Notes/Report: THC NEG PAULA NEG MOP (OPI) NEG AMP NEG MET NEG BAR NEG BZO POS MDMA NEG MTD NEG OXY NEG PCP NEG BUP POS Reason For Referral No Information Medications Medication SIG (Take, Route, Frequency, Duration) Notes Start Date End Date Status Buprenorphine HCl-Naloxone HCl 8-2 MG 1 film under the tongue and allow to dissolve Sublingual three times daily 09/18/2024 Active Jardiance 10 MG 1 tablet Orally Once a day; Duration: 30 day(s) Active Xanax 1 MG 1.5 tablet Orally daily Active Omeprazole 20 MG 1 capsule 30 minutes before morning meal Orally Once a day; Duration: 30 day(s) Active Wegovy 2.4 MG/0.75ML 0.75 mL Subcutaneous Active Cyanocobalamin 1000 MCG 1 tablet Orally Once a day; Duration: 30 day(s) Active Aspirin 81 81 MG 1 tablet Orally Once a day; Duration: 30 day(s) Active Procardia XL 30 MG 1 tablet Orally Once a day; Duration: 30 day(s) Active Eliquis 5 MG as directed Orally Active Ondansetron HCl 4 MG 1 tablet Orally Onc e a day; Duration: 30 day(s) 01/04/2023 Active Naloxone HCl 4 MG/0.1ML as directed Nasally As needed FOR OPIOID OVERDOSE 07/31/2023 Active Metoprolol Succinate ER 25 MG 1 tablet Orally Once a day Active Ergocalciferol 1.25 MG (52628 UT) 1 capsule Orally; Duration: 30 day(s) Active Crestor 20 MG 1 tablet Orally Once a day; Duration: 30 day(s) Active Social History Tobacco Use: Social History Observation Description Date Details (start date - stop date) Unknown Sex Assigned At : Social History Observation Description Sex Assigned At Female Dont use, Tobacco Use/Smoking Question Answer Notes Are you a current every day smoker Additional Findings: Tobacco User e-Cigarette PRAPARE Question Answer Notes Date Completed/Updated: 10/01/2023 What is your current housing situation? I have h ousing Are you worried about losing your housing? No What is the highest level of school that you have finished? Less than a high school degree What is your current work situation? Oth erwise unemployed but not seeking work (ex. 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 Check all that apply I do not have problems meeting my needs Has lack of transportation k ept you from medical appointments, meetings, work or from getting things needed for daily living? No How often do you see or talk to people that you care about and feel close to? (For example: talking to friends on the phone, visiting friends or family, going to yazidism or club meetings) More than 5 times a week How stressed are you? Stress is when someone feels tense, nervous, anxious, or can\t sleep at night because their mind is troubled Somewhat In the past year have you sp ent more than 2 nights in a row in a fpc, mcc, mcc center, or juvenile correctional facility? No Are you a refugee? No What country are you from? [place] Do you feel physically and e motionally safe where you currently live? Yes In the past year, have you b een afraid of your partner or ex-partner? 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) Active confirmed Problem Overweight (354869052) Over weight (E66.3) Active confirmed Problem Obese class I (finding) (178389479264834) Obesity (BMI 30.0-34.9) (E66.9) Active confirmed Problem Chronic pain syndrome (625893894) Chronic pain disorder (G89.4) Active confirmed Problem Tobacco use (875318260) Tobacco use disorder (F17.200) Active confirmed Problem Gastroesophageal reflux disease (336188643) GERD without esophagitis (K21.9) Active confirmed Problem Chronic obstructive pulmonary disease (99512551) COPD mixed type (J44.9) Active confirmed Problem Body mass index 30+ - obesity (376202125) Body mass index (BMI) of 30.0-30.9 in adult (Z68.30) Active confirmed Problem Opioid use disorder (8113541855) Opioid use disorder (F11.99) Active confirmed Problem Rheumatoid arthritis in remission (530243159913072) Rheumatoid arthritis in remission (M06.9) Active confirmed Problem Primary hypertension (63224305) Primary hypertension (I10) 06/15/19 22 Active confirmed Problem Opioid use disorder (8206944914) Opioid use disorder (F11.90) Active confirmed Vital Signs Heart Rate 86 /min 09/18/2024 Temperature 98.6 degrees Fahrenheit 09/18/2024 Respiratory Rate 16 /min 09/18/2024 Oximetry 98 % 09/18/2024 Blood pressure diastolic 70 mm Hg 09/18/2024 Height 65 in 09/18/2024 Blood pressure systolic 118 mm Hg 09/18/2024 Weight 147.8 lbs 09/18/2024 BMI 24.59 kg/m2 09/18/2024 Encounters Encounter Location Date Provider Diagnosis [address] [place] [address] 10/30/2023 Del Whitaker Opioid use disorder F11.[address] [place] [address] 11/28/2023 Jacquelin Smith Opioid use disorder F11.99 ; Obesity (BMI 30.0-34.9) E66.9 and Dietary counseling Z71.[address] [address] 12/31/2023 Jenia Heavens Opioid use disorder F11.90 ; Obesity (BMI 30.0-34.9) E66.9 and Tobacco use disorder F17.[address] [address] 01/28/2024 Jenia Heavens Opioid use disorder F11.99 ; Nutritional counseling Z71.3 ; Obesity (BMI 30.0-34.9) E66.9 and Tobacco use disorder F17.[address] [address] 02/25/2024 Jacquelin Szlufik Opioid use disorder F11.[address] [address] 03/26/2024 Del Whitaker Opioid use disorder F11.90 and Opioid use disorder F11.[address] [address] 04/24/2024 Jenia Heavens Opioid use disorder F11.99 ; Overweight E66.3 and Tobacco use disorder F17.[address] [address] 05/22/2024 Jenia Heavens Opioid use disorder F11.99 ; Overweight E66.3 and Tobacco use disorder F17.[address] [address] 06/22/2024 Jacquelin Szlufik Opioid use disorder F11.99 and Over weight E66.[address] [address] 07/22/2024 Jacquelin Szlufik Opioid use disorder F11.90 and Over weight E66.[address] [address] 08/21/2024 Sasha Escobar Opioid use disorder F11.99 ; Over weight E66.3 and Opioid use disorder F11.[address] [place] [address] 09/18/2024 Jacquelin Smith Opioid use disorder F11.99 Assessments Encounter Date Diagnosis (ICD Code) Assessment Notes Treatment Notes Treatment Clinical Notes Section Notes 10/30/2023 Opioid use disorder (ICD-10 - F11.99) 11/28/2023 Obesity (BMI 30.0-34.9) (ICD-10 - E66.9) 11/28/2023 Opioid use disorder (ICD-10 - F11.99) 12/31/2023 Obesity (BMI 30.0-34.9) (ICD-10 - E66.9) 01/28/2024 Nutritional counseling (ICD-10 - Z71.3) 01/28/2024 Opioid use disorder (ICD-10 - F11.99) 02/25/2024 Opioid use disorder (ICD-10 - F11.90) 03/26/2024 Opioid use disorder (ICD-10 - F11.90) 03/26/2024 Opioid use disorder (ICD-10 - F11.90) 04/24/2024 Overweight (ICD-10 - E66.3) 12/31/2023 Opioid use disorder (ICD-10 - F11.90) 04/24/2024 Opioid use disorder (ICD-10 - F11.99) 05/22/2024 Overweight (ICD-10 - E66.3) 05/22/2024 Opioid use disorder (ICD-10 - F11.99) 06/22/2024 Over weight (ICD-10 - E66.3) 06/22/2024 Opioid use disorder (ICD-10 - F11.99) 07/22/2024 Over weight (ICD-10 - E66.3) 07/22/2024 Opioid use disorder (ICD-10 - F11.90) 08/21/2024 Opioid use disorder (ICD-10 - F11.99) 09/18/2024 Opioid use disorder (ICD-10 - F11.99) 08/21/2024 Over weight (ICD-10 - E66.3) 05/22/2024 Tobacco use disorder (ICD-10 - F17.200) 01/28/2024 Obesity (BMI 30.0-34.9) (ICD-10 - E66.9) 04/24/2024 Tobacco use disorder (ICD-10 - F17.200) 12/31/2023 Tobacco use disorder (ICD-10 - F17.200) 11/28/2023 Dietary counseling (ICD-10 - Z71.3) 01/28/2024 Tobacco use disorder (ICD-10 - F17.200) 08/21/2024 Opioid use disorder (ICD-10 - F11.90) 10/30/2023 Other SHARDA SIGNED FOR LABS DONE AT [facility] 09/2023. 11/28/2023 Other Client agrees to take medication as prescribed. Discussed medication side effects, adverse effects, risks, benefits, as well as interactions. Encouraged non-use of opioids and other illicit substances. Has naloxone. Understand that discontinuing buprenorphine increases the risk of overdose upon return to illicit opioid use. Use of alcohol or benzodiazepines with buprenorphine increases the risk of overdose and . Education provided about safe storage of medications. Encourage participation in recovery groups/counseling services. Patient understands that all treating providers should be informed of buprenorphine use as part of a Medication Assisted Recovery program. Contact office with questions or concerns. 12/31/2023 Other Patient agrees to take medication as prescribed. Discussed medication side effects, adverse effects, risks, benefits, as well as interactions. Encouraged non-use of opioids. Has naloxone. Recommended participation in recovery groups and/or counseling services. May contact office with questions or concerns. 01/28/2024 Other Patient agrees to take medication as prescribed. Discussed medication side effects, adverse effects, risks, benefits, as well as interactions. Encouraged non-use of opioids. Has naloxone. Recommended participation in recovery groups and/or counseling services. May contact office with questions or concerns. 02/25/2024 Other Increased risk of central sleep apnea with concurrent use of buprenorphine and alprazolam. Avoid taking medications together Patient agrees to take medication as prescribed. Discussed medication side effects, adverse effects, risks, benefits, as well as interactions. Encouraged non-use of opioids and other illicit substances. Has naloxone. Discontinuing buprenorphine increases the risk of overdose upon return to illicit opioid use. Use of alcohol or benzodiazepines with buprenorphine increases the risk of overdose and . Education provided about safe storage of medications. Encouraged participation in recovery groups/counseling services. Contact office with questions or concerns. 04/24/2024 Other Discussed medication side effects, adverse effects, risks, benefits, as well as interactions. Encouraged non-use of opioids. Has naloxone. Recommended participation in recovery groups/counseling services. Agrees to contact office with questions or concerns. Patient may self-administe r their own medications or may self-administe r their own oral medications per [facility] Protocol. 05/22/2024 Other Discussed medication side effects, adverse effects, risks, benefits, as well as interactions. Encouraged non-use of opioids. Has naloxone. Recommended participation in recovery groups and/or counseling services. May contact office with questions or concerns. Patient may self-administe r their own medications or may self-administe r their own oral medications per [facility] Protocol. 06/22/2024 Other Increased risk of TRANSIT PLANNER/respiratory depression with combination of benzos and buprenorphine. Space dosing, do not take medications at the same time. Patient agrees to take medication as prescribed. Discussed medication side effects, adverse effects, risks, benefits, as well as interactions. Encouraged non-use of opioids and other illicit substances. Has naloxone. Discontinuing buprenorphine increases the risk of overdose upon return to illicit opioid use. Use of alcohol or benzodiazepines with buprenorphine increases the risk of overdose and . Education provided about safe storage of medications. Encouraged participation in recovery groups/counseling services. Contact office with questions or concerns. Patient may self-administe r their own medications or may self-administe r their own oral medications per [facility] Protocol. 07/22/2024 Other Patient agrees to take medication as prescribed. Discussed medication side effects, adverse effects, risks, benefits, as well as interactions. Encouraged non-use of opioids and other illicit substances. Has naloxone. Discontinuing buprenorphine increases the risk of overdose upon return to illicit opioid use. Use of alcohol or benzodiazepines with buprenorphine increases the risk of overdose and . Education provided about safe storage of medications. Encouraged participation in recovery groups/counseling services. Contact office with questions or concerns. Patient may self-administe r their own medications or may self-administe r their own oral medications per [facility] Protocol. 08/21/2024 Other Client to call insurance to find OBGyn that takes insurance, sees PCP later today as well. Patient agrees to take medication as prescribed. Discussed medication side effects, adverse effects, risks, benefits, as well as interactions. Encouraged non-use of opioids. Client to make provider aware of any medication changes that could interact with treatment. Recommended participation in recovery groups/counseling services to help maintain sobriety. May contact the office with any questions or concerns. 09/18/2024 Other Patient agrees to take medication as prescribed. Discussed medication side effects, adverse effects, risks, benefits, as well as interactions. Encouraged non-use of opioids and other illicit substances. Has naloxone. Discontinuing buprenorphine increases the risk of overdose upon return to illicit opioid use. Use of alcohol or benzodiazepines with buprenorphine increases the risk of overdose and . Education provided about safe storage of medications. Encouraged participation in recovery groups/counseling services. Contact office with questions or concerns. Patient may self-administe r their own medications or may self-administe r their own oral medications per [facility] Protocol. Plan Of Treatment No Information Insurance Providers Payer Name Payer Address Payer Phone Subscriber Number Group Number Insured Name Patient Relationship to Insured Coverage Start Date Coverage End Date [facility] Claims Department [address] [place] [phone] [id number] PhillipsMeryl joiner Self - patient is the insured [address] [facility] Claims Department [address] [place] [address] [id number] Meryl Phillips Self - patient is the insured 1 4 [facility] Claims Department [address] [place] [id number] PhillipsMeryl joiner Self - patient is the insured 1 4 MEDICAID [address] [place] [address] [id number] Roxane Phillipsela Self - patient is the insured 4 4 [facility] Claims Department [address] [place] [id number] Meryl Phillips Self - patient is the insured 5 Medical (General) History Medical History History ICD Code Opioid use disorder F11.90 Chronic pain disorder G89.4 GERD without esophagitis K21.9 Anxiety F41.9 Primary hypertension I10 COPD mixed type J44.9 Mixed hyperlipidemia E78.2 Rheumatoid arthritis in remission M06.9 Surgical History Surgery Date(Month/Year) Gastric sleeve 2018 Femur repair right hip replacement left hip replacement HYSTERECTOMY/REVISE VAGINA ORIF ankle Heart cath procedure 12/2022 Hospitalization History Reason Date(Month/Year) childbirth [facility] heart attack 03/15/[address] [facility] for righ t sprained ankle and 2 broken bones on right foot
--- OUTSIDE RECORDS SUMMARY | 2024-10-12 15:58 | XMS_ITS | Clinical Summary ---
Author Organization [facility] [employer] Address [address] [place] [address] Care Team Providers Care Missile Mechanic Name Role Phone Arturo Flores MD Primary Care Provider [phone] Source Comments [facility] [employer],non-owned Affiliates and Associated Physician Practices is amultiple site organization consisting of ambulatory clinics and hospital sitesin [place], [place], [place] and [place]. This disclosure is being madepursuant to the Care Everywhere program and may not contain all information available regarding this patient. Last updated 17.[facility] [employer] Allergies Active Allergy Reactions Criticality Noted Date Comments Metronidazole Rash Medium 11/22/2016 Topiramate Rash Medium 11/22/2016 Medications * Be aware that medications may not be up to date on this document. Alwaysverify current medications with the patient. multivitamin daily (THERAGRAN) tablet Take 1 Tab by mouth daily with food Active ALPRAZolam (XANAX) 1 MG tablet Take 1 mg by mouth 3 times daily Active oxyCODONE 20 MG Take 20 mg by mouth every 4 hours as needed Active D 1000 1000 UNITS capsule TAKE 5 CAPSULES DAILY 3 8 Active sucralfate (CARAFATE) 1 GM tablet Take 1 (one) tablet by mouth 4 times daily - before meals & nightly dissolve tablet in small amount of water and drink soultion 120 tablet 1 Active Additional Information Patient not taking.Reported on 07/28/2020 pantoprazole EC (PROTONIX) 40 MG tablet 1 Active vitamin D, ergocalciferol, (DRISDOL) 1.25 MG (01131 UT) capsuleIndicati ons:Vitamin D Deficiency Take 1 (one) capsule by mouth every 7 days Reasons: Vitamin D Deficiency 4 capsule 3 1 Active Active Problems Problem Noted Date Diagnosed Date Umbilical hernia without obstruction or gangrene 04/14/2019 Primary localized osteoarthritis of pelvic regio n and thigh 04/14/2019 Other intra-abdominal and pelvic swelling, mass and lump 04/14/2019 Other malaise and fatigue 04/14/2019 Localized edema 04/14/2019 Other insomnia 04/14/2019 Gastro-esophageal reflux disease without esophag itis 04/14/2019 Low back pain 04/14/2019 Dizziness and giddiness 04/14/2019 Disease of gallbladder 04/14/2019 Hyperlipidemia 04/14/2019 Rash and other nonspecific skin eruption 020 Palpitations 05/31/2017 Morbid obesity due to excess calories 05/29/2017 Rheumatoid arthritis 05/04/2015 Nonalcoholic fatty liver disease 05/04/2015 Diabetes 05/04/2015 Depression 05/04/2015 Chronic obstructive pulmonary disease 05/04/2015 Calculus of kidney 05/04/2015 Anxiety 05/04/2015 Dyslipidemia 05/04/2015 Sleep disturbance 11/17/2014 Chronic hepatitis C virus infection 11/17/2014 Overview (04/14/2019): Overview: ns5a not detected Genotype 1a Edema 06/14/2014 Other abnormal glucose 05/14/2014 Generalized anxiety disorder 05/14/2014 Essential hypertension 05/14/2014 Preop examination Family History Medical History Relation Name Comments None Known Brother 1 None Known Brother 2 None Known Brother 3 Cancer - Other Father None Known Maternal Aunt Cancer - Other Maternal Grandfather Cancer - Other Maternal Grandmother None Known Maternal Uncle None Known Mother None Known Paternal Aunt Cancer - Other Paternal Grandfather Cancer - Other Paternal Grandmother None Known Paternal Uncle Asthma Neg Hx CVA Neg Hx Cancer - Breast Neg Hx Cancer - Skin, Melanoma Neg Hx Cancer - Skin, Non Melanoma Neg Hx Eczema Neg Hx Hemophilia Neg Hx Psoriasis Neg Hx Relation Name Status Comments Brother 1 Brother 2 Brother 3 Father Maternal Aunt Maternal Grandfather Maternal Grandmother Maternal Uncle Mother Paternal Aunt Paternal Grandfather Paternal Grandmother Paternal Uncle Social History Tobacco Use Types Packs/Day Years Used Date Smoking Tobacco: Former Cigarettes 3 25 1 984 - 2009 Smokeless Tobacco: Never Alcohol Use Standard Drinks/Week Comments No 0 (1 standard drink = 0.6 oz pur e alcohol) Comments No Sex and Gender Information Value Date Recorded Sex Assigned at Not on file Legal Sex Female 3:04 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 Gender Identity Not on file Sexual Orientation Not on file Last Filed Vital Signs Vital Sign Reading Time Taken Comments Blood Pressure 159/96 08/01/2020 12:10 PM CDT Pulse 58 08/01/2020 12:10 PM CDT Temperature 36.1 C (97 F) 08/01/2020 11:46 AM CDT Respiratory Rate 20 08/01/2020 12:1 0 PM CDT Oxygen Saturation 100% 08/01/2020 12: 10 PM CDT Inhaled Oxygen Concentration - - Weight 77.5 kg (170 lb 13.7 oz) 08/01/2020 8:19 AM CDT Height 162.6 cm (5' 4) 08/01/2020 8:19 AM CDT Body Mass Index 29.33 08/01/2020 8:19 AM CDT Plan of Treatment Health Maintenance Due Date Last Done Comments COLOGUARD (AGES 45-75) - COLON CA SCREENING 1963 COLON MONITORING 1963 COLONOSCOPY - COLON CA SCREENING 1963 CT COLONOGRAPHY - COLON CA SCREENING 1963 Colorectal Cancer Screening 1963 FIT - COLON CA SCREENING 1963 FLEX SIG - COLON CA SCREENING 1963 MAMMOGRAM 1963 HIV SCREENING 1978 DTAP/TDAP/TD VACCINES (1 - Tdap) 1982 PNEUMOCOCCAL VACCINE 50+ (1 of 2 - PCV) 1982 DIABETES-STATIN 2003 LUNG CANCER SCREENING 2013 ZOSTER VACCINE (1 of 2) 2013 DIABETES-SERUM CREATININE 05/31/20182017, 05/31/2017, 05/30/2017, Additional history exists DIABETES RETINOPATHY SCREENING 04/14/2019 DIABETES-FOOT EXAM WITH MONOFILAMENT 04/14/2019 DIABETES-HGB A1C 04/14/2019 HEPATITIS B VACCINE (1 of 3 - Risk 3-dose series) 2023 Respiratory Syncytial Virus (RSV) Vaccine Pt: or over 60 yrs (1 - Risk 60-74 years 1-dose series) 2023 COVID-19 VACCINE (2023- season) 2023 DEPRESSION SCREENING 02/26/2024 DIABETES - URINE PROTEIN SCREENING 02/26/2024 INFLUENZA VACCINE (#1) 2024 HEPATITIS C SCREENING Completed 07/20/2015 , 07/18/2015, 11/17/2014 HIB VACCINE Aged Out No longer eligi ble based on patient's age to complete this topic HPV VACCINE Aged Out No longer eligi ble based on patient's age to complete this topic MENINGOCOCCAL (Group B) VACCINE SHARED DECISION-MAKING Aged Out No longer eligible based on patient's age to complete this topic MENINGOCOCCAL GROUPS A/C/Y/W VACCINE Aged Out No longer eligible based on patient's age to complete this topic Medical Devices Implanted Type Area Aircraft Refueller Device Identifier Shelf Expiration Date Model / Serial / Lot Tissue Reinforcement Implanted:Qty: 1 on 05/29/2017 by Bernard Durham MD at [facility] N/A: Abdomen 05/25/2018 [id number] / / Evicel Fibrin Sealant Implanted:Qty: 1 on 05/29/2017 by Bernard Durham MD at [facility] N/A: Abdomen 09/28/2018 [id number] / / [id number] Kit Tissue Clsr Duo Tssl 1 Prefl Syr Implanted:Qty: 1 on 05/29/2017 by Bernard Durham MD at [facility] N/A: Abdomen [employer] 04/24/2018 [id number] / / [id number] Procedures Procedure Name Priority Date/Time Associated Diagnosis Comments BASIC METABOLIC PANEL (CALCIUM TOTAL) Routine 05/31/2017 8:58 AM CDT HEPATITIS C REAL-TIME PCR QUANTASURE Routine 07/20/2015 3:11 PM CDT from Last 3 Months or Most Recently Relevant to Health Maintenance Results * (ABNORMAL) BASIC METABOLIC PANEL (CALCIUM TOTAL) (05/31/2017 8:58 AM CDT) [facility] Glucose 113 70 - 125 mg/dL 05/31/2017 9:59 AM CDT [facility] Sodium 141 136 - 145 mmol/L 05/31/2017 9:59 AM CDT [facility] Potassium 3.0(LL) 3.4 - 4.5 mmol/L 05/31/2017 9:59 AM CDT [facility] Comment:rechecked Chloride 106 98 - 107 mmol/L 05/31/2017 9:59 AM CDT [facility] CO2 23 22 - 29 mmol/L 05/31/2017 9:59 AM T [facility] Calcium 9.5 8.4 - 10.2 mg/dL 05/31/2017 9:59 AM T [facility] Anion Gap 15 10 - 20 mmol/L 05/31/2017 9:59 AM T [facility] BUN 6.5(L) 9.8 - 20.1 mg/dL 05/31/2017 9:59 AM T [facility] Creatinine 0.66 0.57 - 1.11 mg/dL 05/31/2017 9:59 AM T [facility] eGFR by MDRD >60 >60 mL/min/1.7 3m2 05/31/2017 9:59 AM T [facility] eGFR by MDRD >60 >60 mL/min/1.7 3m2 05/31/2017 9:59 AM T [facility] Blood BLOOD SPECIMEN / Unknown Lab Venipuncture / Unknown 05/31/2017 8:58 AM CDT 05/31/2017 9:00 AM CDT Bernard Durham MD LAB - CHEMISTRY ORDERABLES F inal Result Performing Organization Address City/State/[facility] Co de Phone Number [facility] [address] * (ABNORMAL) HEPATITIS C REAL-TIME PCR QUANTASURE (07/20/2015 3:11 PM CDT) [facility] Hepatitis C Virus RNA PCR Quantitative [id number](H ) <15 IU/mL [facility]) Hepatitis C Virus RNA Log IU/mL 6.04(H) <1.18 Log IU/mL [facility]) See Note [facility] Comment: The analytical performance characteristics of this assay have been determined by [employer]. The modifications have not been cleared or approved by the FDA. This assay has been validated pursuant to the CLIA regulations and is used for clinical purposes. This test was performed using the YOU(R)AmpliPrep/ YOU(R)TaqMan(R)HCV Test,v2.0. For more information on this test, go to: http://education.iMall.eu/faq/DGK15z8 (This link is being provided for informational/ educational purposes only.) REPORT COMMENT: FASTING:NO Test Performed at: [facility] [address] [place] [address] FIGUEROA HAWKINS DO,MPH 07/20/2015 3:11 PM CDT 07/20/2015 3:13 PM CDT us Marlena Yates POCKET OPERATOR-TIRE CHANGER LAB - SEROLOGY ORDER FIONA Final Result Performing Organization Address City/State/[facility] Co de Phone Number [facility] U) [phone] from Last 3 Months or Most Recently Relevant to Health Maintenance Insurance [facility] [place] [address] [facility] SELF PAY NO INSURANCE Member Subscriber Plan / Payer (Ef fective for All Dates) Name:Meryl Hernández Francine Member ID:Not on file Relation to Subscriber:Not on file Name:MERYL HERNÁNDEZ Subscriber ID:Not on file (Home) Address: [address] [place] [id number] Payer ID:Not on file Group ID:Not on file Type:Self Pay Address: [place], [place] Advance Directives * Full Code (Latest Code Status on File) Date Activated Date Inactivated Comments 05/30/2017 5:48 PM 06/01/2017 12:45 AM Care Teams Missile Mechanic Relationship Specialty Start Date End Date Arturo Flores MD [address] [facility] [address] [place] [address] PCP - General Family Medicine 10/08/16
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
--- OUTSIDE RECORDS SUMMARY | 2024-10-12 15:58 | XMS_ITS | Encounter Summary ---
Author Organization [facility] Address [address] [place] [address] Care Team Providers Care French Binding Folder Name Role Phone Arturo Flores MD Primary Care Provider [phone] Reason for Visit * Reason Onset Date Comments Follow-up 11/23/2016 Encounter Details Date Type Department Care Team (Late st Contact Info) Description 11/23/2016 Telephone [facility] [address] 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 Colonoscopy report requested from PCP office dr flores. Sep check requested to be sent. Jael River LPN 11/23/2016 2:46 PM documented in this encounter Plan of Treatment Not on file documented as of this encounter Visit Diagnoses Not on filedocumented in this encounter Additional Health Concerns Infection Onset Date Last Indicated Resolved Time COVID-19 Under Investigation 07/29/2020 07/29/2020 07/30/2020 3:10 AM CDT documented as of this encounter Care Teams French Binding Folder Relationship Specialty Start Date End Date Arturo Flores MD [address] [facility] [address] [place] [id number] PCP - General Family Medicine 10/08/16 documented as of this encounter
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
--- OUTSIDE RECORDS SUMMARY | 2024-10-12 15:58 | XMS_ITS | Continuity of Care Document ---
Author Organization [facility] Address [address] [place] [address] [place] [address] Phone Care Team Providers Care Resource Director Name Role Phone Arturo Flores MD Unavailable Unavailable Allergies, Adverse Reactions, Alerts Substance Reaction Status Criticality NSAIDS (Non-Steroidal Anti-Inflammatory Drug) Active No Information topiramate Active No Information Medications Medication Instructions Dosage Effective Dates (start - stop) Status Comments Xanax 1 mg tablet take 1 tablet by oral route 2 times every day as needed 1 MG - Active PRN for anxiety, avoid driving or operate machines, omeprazole 40 mg capsule,delayed release take 1 capsule by oral route every day before a meal 40 MG - Active metoprolol succinate ER 25 mg tablet,extended release 24 hr take 1 tablet by oral route every day 25 MG - Active amiodarone 200 mg tablet take 1 tablet by oral route every day 200 MG - Active Wegovy 1.7 mg/0.75 mL subcutaneous pen injector inject (1.7MG) by subcutaneous route every week on the same day of each week 1.7 MG - Active Eliquis 5 mg tablet take 1 tablet by oral route 2 times every day 5 MG - Active Crestor 20 mg tablet take 1 tablet by oral route every day 20 MG - Active Suboxone 4 mg-[address] 1 film by sublingual route every day allow to dissolve slowly in mouth without chewing or swallowing 1.00 film - Active Procedures Procedure Date OFFICE/OUTPATIENT VISIT, EST OFFICE/OUTPATIENT VISIT, EST OFFICE/OUTPATIENT VISIT, EST OFFICE/OUTPATIENT VISIT, EST OFFICE/OUTPATIENT VISIT, EST OFFICE/OUTPATIENT VISIT, EST OFFICE/OUTPATIENT VISIT, EST -2024 OFFICE/OUTPATIENT VISIT, EST OFFICE/OUTPATIENT VISIT, EST OFFICE/OUTPATIENT VISIT, EST OFFICE/OUTPATIENT VISIT, EST OFFICE/OUTPATIENT VISIT, EST OFFICE/OUTPATIENT VISIT, EST OFFICE/OUTPATIENT VISIT, EST OFFICE/OUTPATIENT VISIT, EST OFFICE/OUTPATIENT VISIT, EST OFFICE/OUTPATIENT VISIT, EST OFFICE/OUTPATIENT VISIT, EST OFFICE/OUTPATIENT VISIT, EST OFFICE/OUTPATIENT VISIT, EST OFFICE/OUTPATIENT VISIT, EST OFFICE/OUTPATIENT VISIT, EST OFFICE/OUTPATIENT VISIT, EST OFFICE/OUTPATIENT VISIT, EST OFFICE/OUTPATIENT VISIT, EST OFFICE/OUTPATIENT VISIT, EST OFFICE/OUTPATIENT VISIT, EST OFFICE/OUTPATIENT VISIT, EST OFFICE/OUTPATIENT VISIT, EST OFFICE/OUTPATIENT VISIT, EST OFFICE/OUTPATIENT VISIT, EST OFFICE/OUTPATIENT VISIT, EST OFFICE/OUTPATIENT VISIT, EST OFFICE/OUTPATIENT VISIT, EST OFFICE/OUTPATIENT VISIT, EST -2022 PREV VISIT, EST, AGE 40-64 OFFICE/OUTPATIENT VISIT, EST OFFICE/OUTPATIENT VISIT, EST OFFICE/OUTPATIENT VISIT, EST OFFICE/OUTPATIENT VISIT, EST OFFICE/OUTPATIENT VISIT, EST OFFICE/OUTPATIENT VISIT, EST OFFICE/OUTPATIENT VISIT, EST OFFICE/OUTPATIENT VISIT, EST OFFICE/OUTPATIENT VISIT, EST OFFICE/OUTPATIENT VISIT, EST OFFICE/OUTPATIENT VISIT, EST OFFICE/OUTPATIENT VISIT, EST OFFICE/OUTPATIENT VISIT, EST OFFICE/OUTPATIENT VISIT, EST OFFICE/OUTPATIENT VISIT, EST PREV VISIT, EST, AGE 40-64 OFFICE/OUTPATIENT VISIT, EST OFFICE/OUTPATIENT VISIT, EST OFFICE/OUTPATIENT VISIT, EST OFFICE/OUTPATIENT VISIT, EST OFFICE/OUTPATIENT VISIT, EST OFFICE/OUTPATIENT VISIT, EST OFFICE/OUTPATIENT VISIT, EST OFFICE/OUTPATIENT VISIT, EST OFFICE/OUTPATIENT VISIT, EST OFFICE/OUTPATIENT VISIT, EST OFFICE/OUTPATIENT VISIT, EST OFFICE/OUTPATIENT VISIT, EST OFFICE/OUTPATIENT VISIT, EST OFFICE/OUTPATIENT VISIT, EST OFFICE/OUTPATIENT VISIT, EST OFFICE/OUTPATIENT VISIT, EST PREV VISIT, EST, AGE 40-64 OFFICE/OUTPATIENT VISIT, EST OFFICE/OUTPATIENT VISIT, EST OFFICE/OUTPATIENT VISIT, EST OFFICE/OUTPATIENT VISIT, EST OFFICE/OUTPATIENT VISIT, EST OFFICE/OUTPATIENT VISIT, EST OFFICE/OUTPATIENT VISIT, EST OFFICE/OUTPATIENT VISIT, EST OFFICE/OUTPATIENT VISIT, EST OFFICE/OUTPATIENT VISIT, EST OFFICE/OUTPATIENT VISIT, EST OFFICE/OUTPATIENT VISIT, EST PREV VISIT, EST, AGE 40-64 OFFICE/OUTPATIENT VISIT, EST OFFICE/OUTPATIENT VISIT, EST OFFICE/OUTPATIENT VISIT, EST OFFICE/OUTPATIENT VISIT, EST OFFICE/OUTPATIENT VISIT, EST OFFICE/OUTPATIENT VISIT, EST OFFICE/OUTPATIENT VISIT, EST OFFICE/OUTPATIENT VISIT, EST OFFICE/OUTPATIENT VISIT, EST OFFICE/OUTPATIENT VISIT, EST OFFICE/OUTPATIENT VISIT, EST OFFICE/OUTPATIENT VISIT, EST OFFICE/OUTPATIENT VISIT, EST OFFICE/OUTPATIENT VISIT, EST PREV VISIT, EST, AGE 40-64 OFFICE/OUTPATIENT VISIT, EST OFFICE/OUTPATIENT VISIT, EST OFFICE/OUTPATIENT VISIT, EST OFFICE/OUTPATIENT VISIT, EST OFFICE/OUTPATIENT VISIT, EST OFFICE/OUTPATIENT VISIT, EST OFFICE/OUTPATIENT VISIT, EST OFFICE/OUTPATIENT VISIT, EST OFFICE/OUTPATIENT VISIT, EST OFFICE/OUTPATIENT VISIT, EST OFFICE/OUTPATIENT VISIT, EST OFFICE/OUTPATIENT VISIT, EST OFFICE/OUTPATIENT VISIT, EST PREV VISIT, EST, AGE 40-64 OFFICE/OUTPATIENT VISIT, EST OFFICE/OUTPATIENT VISIT, EST -2016 OFFICE/OUTPATIENT VISIT, EST OFFICE/OUTPATIENT VISIT, EST OFFICE/OUTPATIENT VISIT, EST OFFICE/OUTPATIENT VISIT, EST OFFICE/OUTPATIENT VISIT, EST OFFICE/OUTPATIENT VISIT, EST OFFICE/OUTPATIENT VISIT, EST OFFICE/OUTPATIENT VISIT, EST OFFICE/OUTPATIENT VISIT, EST OFFICE/OUTPATIENT VISIT, EST -2015 PREV VISIT, EST, AGE 40-64 OFFICE/OUTPATIENT VISIT, EST OFFICE/OUTPATIENT VISIT, EST OFFICE/OUTPATIENT VISIT, EST OFFICE/OUTPATIENT VISIT, EST OFFICE/OUTPATIENT VISIT, EST OFFICE/OUTPATIENT VISIT, EST OFFICE/OUTPATIENT VISIT, EST OFFICE/OUTPATIENT VISIT, EST OFFICE/OUTPATIENT VISIT, EST OFFICE/OUTPATIENT VISIT, EST OFFICE/OUTPATIENT VISIT, EST OFFICE/OUTPATIENT VISIT, EST OFFICE/OUTPATIENT VISIT, EST OFFICE/OUTPATIENT VISIT, EST PREV VISIT, NEW, AGE 40-64 Advance Directives Directive Yes / No Effective Date File Name No Information Encounters Encounter Description Practice Location Reason(s) For Visit Diagnoses Date Provider Providers Copied on Encounter OFFICE/OUTPA TIENT VISIT, [facility], [address] [place], [address], [place] tel:[phone] [facility] anxiety1 (chief complaint) groin pain1 (chief complaint) bruising1 (chief complaint) GERD1 (chief complaint) Generalized Anxiety DisorderRight lower quadrant abdominal tendernessSpontaneo us ecchymosesGERD w/o esophagitisBasal cell carcinoma of skin of nose Mark Morris. [address], [place], [place], [address] , [place]. tel:[phone] OFFICE/OUTPA TIENT VISIT, [facility], [address] [place], [address], [place] tel:[phone] [facility] pAF (chief complaint) anxiety1 (chief complaint) IBS (chief complaint) weight loss1 (chief complaint) Paroxysmal atrial fibrillationIrritab le bowel syndrome with diarrheaGeneralized Anxiety DisorderAbnormal weight loss Mark Morris. [address], [place], [place], [address] , [place]. tel:[phone] OFFICE/OUTPA TIENT VISIT, [facility], [address], [place], [place], [address], [place] tel:[phone] [facility] anxiety1 (chief complaint) afib (chief complaint) weight loss1 (chief complaint) Abnormal weight lossGeneralized Anxiety DisorderParoxysmal atrial fibrillation 5 Mark Morris. [address], [place], [place], [address] , [place]. tel:[phone] OFFICE/OUTPA TIENT VISIT, [facility], [address], [place], [place], [address], [place] tel:[phone] [facility] anxiety1 (chief complaint) GERD1 (chief complaint) weight loss1 (chief complaint) Generalized Anxiety DisorderAbnormal weight lossGERD without esophagitisBasal cell carcinoma of skin of noseEncounter for oth screening for malignant neoplasm of breast 5 Mark Morris. [address], [place], [place], [address] , [place]. tel:[phone] OFFICE/OUTPA TIENT VISIT, [facility], [address], [place], [place], [address], [place] tel:[phone] [facility] afib (chief complaint) Paroxysmal atrial fibrillation May-0 5 Mark Morris. [address], [place], [place], [address] , [place]. tel:[phone] OFFICE/OUTPA TIENT VISIT, [facility], [address], [place], [place], [address], [place] tel:[phone] [facility] anxiety1 (chief complaint) afib1 (chief complaint) HTN (chief complaint) Paroxysmal atrial fibrillationGeneral ized Anxiety DisorderEssential (primary) hypertension 5 Mark Morris. [address], [place], [place], [address] , [place]. tel:[phone] OFFICE/OUTPA TIENT VISIT, [facility], [address], [place], [place], [address], [place] tel:[phone] [facility] anxiety1 (chief complaint) weight loss1 (chief complaint) aflutter1 (chief complaint) IBS-D (chief complaint) Atrial flutterGeneralized Anxiety DisorderIrritable bowel syndrome with diarrheaAbnormal weight lossGERD w/o esophagitis 5 Flores Arturo. [address], [place], [place], [address] , [place]. tel:[phone] OFFICE/OUTPA TIENT VISIT, [facility], [address], [place], [place], [address], [place] tel:[phone] [facility] aflutter1 (chief complaint) Atrial flutter 5 Flores Arturo. [address], [place], [place], [address] , [place]. tel:[phone] OFFICE/OUTPA TIENT VISIT, [facility], [address], [place], [place], [address], [place] tel:[phone] [facility] skin1 (chief complaint) anxiety1 (chief complaint) aflutter1 (chief complaint) Generalized Anxiety DisorderBasal cell carcinoma of skin of noseAtrial flutter 5 Mark Arturo. [address], [place], [place], [address] , [place]. tel:[phone] OFFICE/OUTPA TIENT VISIT, [facility], [address], [place], [place], [address], [place] tel:[phone] [facility] anxiety1 (chief complaint) weight loss1 (chief complaint) HTN (chief complaint) Abnormal weight lossGeneralized Anxiety DisorderEssential (primary) hypertensionOsteope noelle 4 Flores Arturo. [address], [place], [place], [address] , [place]. tel:[phone] OFFICE/OUTPA TIENT VISIT, [facility], [address], [place], [place], [address], [place] tel:[phone] [facility] anxiety1 (chief complaint) GERD1 (chief complaint) IBS-D (chief complaint) Generalized Anxiety DisorderIrritable bowel syndrome with diarrheaGERD without esophagitisNevus, non-neoplastic 4 Mark Morris. [address], [place], [place], [address] , [place]. tel:[phone] OFFICE/OUTPA TIENT VISIT, [facility], [address], [place], [place], [address], [place] tel:[phone] [facility] anxiety1 (chief complaint) IBS-D (chief complaint) weight gain1 (chief complaint) skin1 (chief complaint) GERD1 (chief complaint) Nevus, non-neoplasticIrrit able bowel syndrome with diarrheaGeneralized Anxiety DisorderAbnormal weight gainGERD without esophagitis 0 4 Mark Morris. [address], [place], [place], [address] , [place]. tel:[phone] OFFICE/OUTPA TIENT VISIT, [facility], [address], [place], [place], [address], [place] tel:[phone] [facility] anxiety1 (chief complaint) IBS-D (chief complaint) HTN (chief complaint) Generalized Anxiety DisorderEssential (primary) hypertensionIrritab le bowel syndrome with diarrheaEncounter for oth screening for malignant neoplasm of breast 4 Mark Morris. [address], [place], [place], [address] , [place]. tel:[phone] OFFICE/OUTPA TIENT VISIT, [facility], [address], [place], [place], [address], [place] tel:[phone] [facility] GERD1 (chief complaint) GERD w/o esophagitis Oct- 4 Mark Morris. [address], [place], [place], [address] , [place]. tel:[phone] OFFICE/OUTPA TIENT VISIT, [facility], [address], [place], [place], [address], [place] tel:[phone] [facility] anxiety1 (chief complaint) osteopenia 1 (chief complaint) urine1 (chief complaint) Other specified disorder of bone densityGeneralized Anxiety DisorderGlycosuria 4 Mark Arturo. [address], [place], [place], [address] , [place]. tel:[phone] OFFICE/OUTPA TIENT VISIT, [facility], [address], [place], [place], [address], [place] [phone] [facility] anxiety1 (chief complaint) GERD1 (chief complaint) nevus1 (chief complaint) Nevus, non-neoplasticGener alized Anxiety DisorderGERD without esophagitis 4 Mark Arturo. [address], [place], [place], [address] , [place]. tel:[phone] OFFICE/OUTPA TIENT VISIT, [facility], [address], [place], [place], [address], [place] tel:[phone] [facility] anxitey1 (chief complaint) CAD (chief complaint) edema1 (chief complaint) Essential (primary) hypertensionGeneral ized Anxiety DisorderNevus, non-neoplasticEdema Encntr screen mammogram for malignant neoplasm of breast 4 Flores Arturo. [address], [place], [place], [address] , [place]. tel:[phone] OFFICE/OUTPA TIENT VISIT, [facility], [address], [place], [place], [address], [place] tel:[phone] [facility] anxiety1 (chief complaint) CAD (chief complaint) HTN (chief complaint) nevus1 (chief complaint) Essential (primary) hypertensionCardiom yopathyMixed hyperlipidemiaGener alized Anxiety DisorderNevus, non-neoplastic 4 Mark Arturo. [address], [place], [place], [address] , [place]. tel:[phone] OFFICE/OUTPA TIENT VISIT, [facility], [address], [place], [place], [address], [place] tel:[phone] [facility] HTN (chief complaint) anxiety1 (chief complaint) nevus1 (chief complaint) Essential (primary) hypertensionGeneral ized Anxiety DisorderNevus, non-neoplasticEncnt r screen mammogram for malignant neoplasm of breast 4 Mark Boykin [address], [place], [place], [address] , [place]. tel:[phone] OFFICE/OUTPA TIENT VISIT, [facility], [address] [place], [address], [place] tel:[phone] [facility] anxiety1 (chief complaint) HTN (chief complaint) skin1 (chief complaint) Essential (primary) hypertensionGeneral ized Anxiety DisorderNevus, non-neoplastic 4 Mark Boykin [address], [place], [place], [address] , [place]. tel:[phone] OFFICE/OUTPA TIENT VISIT, [facility], [address], [address], [place] tel:[phone] [facility] HTN (chief complaint) anxiety1 (chief complaint) Essential (primary) hypertensionGeneral ized Anxiety Disorder Apr-0 4 Mark Boykin [address], [place], [place], [address] , [place]. tel:[phone] OFFICE/OUTPA TIENT VISIT, [facility], [address], [address], [place] tel:[phone] [facility] anxiety1 (chief complaint) HTN (chief complaint) chronic (chief complaint) CardiomyopathyEssen tial (primary) hypertensionGeneral ized Anxiety DisorderChronic pain syndromeNevus, non-neoplastic 4 Mark Morris. [address], [place], [place], [address] , [place]. tel:[phone] OFFICE/OUTPA TIENT VISIT, [facility], [address], [place], [place], [address], [place] tel:[phone] [facility] anxiety1 (chief complaint) skin lesion1 (chief complaint) cardiomyop athy1 (chief complaint) Nevus, non-neoplasticGener alized Anxiety DisorderCardiomyopa thyChronic pain syndromeEssential (primary) hypertension 4 Mark Boykin [address], [place], [place], [address] , [place]. tel:[phone] OFFICE/OUTPA TIENT VISIT, [facility], [address] [place], [address], [place] tel:[phone] [facility] CAD (chief complaint) anxiety1 (chief complaint) GERD1 (chief complaint) Generalized Anxiety DisorderArterioscle rosis of [place] with angina pectorisGERD w/o esophagitisInconclu sive mammogram 3 Mark Boykin [address], [place], [place], [address] , [place]. tel:[phone] OFFICE/OUTPA TIENT VISIT, [facility], [address], [address], [place] tel:[phone] [facility] HLP (chief complaint) iron deficiency 1 (chief complaint) Iron deficiency anemiaMixed hyperlipidemia 3 Mark Boykin [address], [place], [place], [address] , [place]. tel:[phone] OFFICE/OUTPA TIENT VISIT, [facility], [address] [place], [address], [place] tel:[phone] [facility] anxiety1 (chief complaint) CAD (chief complaint) iron1 (chief complaint) skin1 (chief complaint) Essential (primary) hypertensionGeneral ized Anxiety DisorderIron deficiency anemiaNevus, non-neoplasticArter iosclerosis of [place] with angina pectoris 3 Mark Boykin [address], [place], [place], [address] , [place]. tel:[phone] OFFICE/OUTPA TIENT VISIT, [facility], [address] [place], [address], [place] tel:[phone] [facility] hep C (chief complaint) anxiety1 (chief complaint) cardiomyop athy1 (chief complaint) HTN (chief complaint) Hepatitis CGeneralized Anxiety DisorderEssential (primary) hypertensionCardiom yopathy 3 Mark Morris. [address], [place], [place], [address] , [place]. tel:[phone] OFFICE/OUTPA TIENT VISIT, [facility], [address], [place], [place], [address], [place] tel:[phone] [facility] Hep C (chief complaint) Hepatitis C 3 Mark Morris. [address], [place], [place], [address] , [place]. tel:[phone] OFFICE/OUTPA TIENT VISIT, [facility], [address], [place], [place], [address], [place] tel:[phone] [facility] bradycardi a1 (chief complaint) anxiety1 (chief complaint) HTN (chief complaint) hep c (chief complaint) BradycardiaEssentia l (primary) hypertensionGeneral ized Anxiety DisorderHepatitis C 3 Mark Morris. [address], [place], [place], [address] , [place]. tel:[phone] OFFICE/OUTPA TIENT VISIT, [facility], [address], [address], [place] tel:[phone] [facility] HTN (chief complaint) anxiety1 (chief complaint) gait1 (chief complaint) BradycardiaEssentia l (primary) hypertensionGeneral ized Anxiety DisorderAbnormaliti es of gait 3 Mark Morris. [address], [place], [place], [address] , [place]. [phone] OFFICE/OUTPA TIENT VISIT, [facility], [address], [place], [place], [address], [place] tel:[phone] [facility] HTN (chief complaint) bradycardi a1 (chief complaint) anemia1 (chief complaint) Chronic pain syndromeAnemiaEssen tial (primary) hypertensionBradyca rdia 3 Mark Morris. [address], [place], [place], [address] , [place]. tel:[phone] OFFICE/OUTPA TIENT VISIT, [facility], [address], [address], [place] tel:[phone] [facility] anxiety1 (chief complaint) pain (chief complaint) HTN (chief complaint) Chronic pain syndromeGeneralized Anxiety DisorderOther bilateral secondary osteoarthritis of hipEssential (primary) hypertension 3 Mark Morris. [address], [place], [place], [address] , [place]. [phone] OFFICE/OUTPA TIENT VISIT, [facility], [address] [place], [address], [place] tel:[phone] [facility] anxiety1 (chief complaint) pain1 (chief complaint) Chronic pain syndromeIdiopathic progressive neuropathyGeneraliz ed Anxiety DisorderAbnormaliti es of gait 3 Mark Morris. [address], [place], [place], [address] , [place]. [phone] OFFICE/OUTPA TIENT VISIT, [facility], [address], [address], [place] tel:[phone] [facility] anxiety1 (chief complaint) knee pain1 (chief complaint) HTN (chief complaint) pain (chief complaint) Bakers cyst of popliteal space of left kneeGeneralized Anxiety DisorderEssential (primary) hypertensionChronic pain syndrome 3 Mark Morris. [address], [place], [place], [address] , [place]. tel:[phone] OFFICE/OUTPA TIENT VISIT, [facility], [address], [address], [place] tel:[phone] [facility] tubular adenoma1 (chief complaint) GERD1 (chief complaint) anxiety1 (chief complaint) knee pain1 (chief complaint) Generalized Anxiety DisorderGERD without esophagitisIrritabl e bowel syndrome with diarrheaBakers cyst of popliteal space of left kneePolyp of colon 3 Mark Boykin [address], [place], [place], [address] , [place]. tel:[phone] PREV VISIT, EST, AGE 40-64 [facility], [address], [place], [place], [address], [place] [phone] [facility] anxiety1 (chief complaint) pain (chief complaint) HTN (chief complaint) Encounter for general adult medical examination without abnormal findings 3 Mark Boykin [address], [place], [place], [address] , [place]. tel:[phone] OFFICE/OUTPA TIENT VISIT, [facility], [address], [place], [place], [address], [place] tel:[phone] [facility] anxiety1 (chief complaint) ankle pain1 (chief complaint) GERD1 (chief complaint) Generalized Anxiety DisorderPain in lt ankleGERD w/o esophagitisChronic pain syndrome 3 Mark Boykin [address], [place], [place], [address] , [place]. [phone] OFFICE/OUTPA TIENT VISIT, [facility], [address], [place], [place], [address], [place] tel:[phone] [facility] anxiety1 (chief complaint) pain1 (chief complaint) IBS1 (chief complaint) Irritable bowel syndrome with diarrheaGeneralized Anxiety DisorderChronic pain syndrome 3 Mark Boykin [address], [place], [place], [address] , [place]. tel:[phone] OFFICE/OUTPA TIENT VISIT, [facility], [address], [place], [place], [address], [place] tel:[phone] [facility] anxiety1 (chief complaint) pain (chief complaint) IBS D (chief complaint) ankle1 (chief complaint) Generalized Anxiety DisorderIrritable bowel syndrome with diarrheaChronic pain syndromePain in lt ankle 2 Mark Morris. [address], [place], [place], [address] , [place]. tel:[phone] OFFICE/OUTPA TIENT VISIT, [facility], [address], [place], [place], [address], [place] tel:[phone] [facility] anxiety1 (chief complaint) pain1 (chief complaint) diarrhea1 (chief complaint) Irritable bowel syndrome with diarrheaGeneralized Anxiety DisorderChronic pain syndrome 2 Mark Morris. [address], [place], [place], [address] , [place]. tel:[phone] OFFICE/OUTPA TIENT VISIT, [facility], [address], [place], [place], [address], [place] tel:[phone] [facility] anxiety1 (chief complaint) breast pain1 (chief complaint) osteopenia 1 (chief complaint) tobacco1 (chief complaint) Generalized Anxiety DisorderLump in the left breastOther specified disorder of bone densityTobacco use 2 Mark Morris. [address], [place], [place], [address] , [place]. tel:[phone] OFFICE/OUTPA TIENT VISIT, [facility], [address], [place], [place], [address], [place] tel:[phone] [facility] anxiety1 (chief complaint) chronic pain1 (chief complaint) osteopenia 1 (chief complaint) breast1 (chief complaint) Chronic pain syndromeGeneralized Anxiety DisorderOther specified disorder of bone densityLump in the left breastTobacco useAcute cystitis without hematuria 2 Mark Morris. [address], [place], [place], [address] , [place]. tel:[phone] OFFICE/OUTPA TIENT VISIT, [facility] [facility], [address] [place], [address], [place] tel:[phone] [facility] UTI1 (chief complaint) Acute cystitis without hematuria 2 Flores Arturo. [address], [place], [place], [address] , [place]. tel:[phone] OFFICE/OUTPA TIENT VISIT, [facility], [address] [place], [address], [place] tel:[phone] [facility] anxiety1 (chief complaint) breast lump1 (chief complaint) GERD1 (chief complaint) Generalized Anxiety DisorderLump in the left breastOther esophagitis without bleeding 2 Flores Arturo. [address], [place], [place], [address] , [place]. tel:[phone] OFFICE/OUTPA TIENT VISIT, [facility], [address] [place], [address], [place] tel:[phone] [facility] anxiety1 (chief complaint) breast1 (chief complaint) tobacco1 (chief complaint) Generalized Anxiety DisorderTobacco useChronic pain syndromeOther specified disorder of bone densityLump in the left breast 2 Flores Arturo. [address], [place], [place], [address] , [place]. tel:[phone] OFFICE/OUTPA TIENT VISIT, [facility], [address] [place], [address], [place] tel:[phone] [facility] anxiety1 (chief complaint) breast lump1 (chief complaint) tobacco1 (chief complaint) neuropathy 1 (chief complaint) Generalized Anxiety DisorderLump in the left breastTobacco useNeuropathy 2 Flores Arturo. [address], [place], [place], [address] , [place]. tel:[phone] OFFICE/OUTPA TIENT VISIT, [facility], [address] [place], [address], [place] tel:[phone] [facility] anxiety1 (chief complaint) HLP (chief complaint) low D (chief complaint) D-dimer1 (chief complaint) Generalized Anxiety DisorderHyperlipide miaHepatitis CAbnormal coagulation profileChronic pain syndrome 2 Mark Morris. [address], [place], [place], [address] , [place]. tel:[phone] OFFICE/OUTPA TIENT VISIT, [facility], [address], [place], [place], [address], [place] tel:[phone] [facility] anxiety1 (chief complaint) chronic pain1 (chief complaint) tobacco1 (chief complaint) breast pain1 (chief complaint) Generalized Anxiety DisorderTobacco useOpioid dependence, uncomplicatedLump in the left breastOther specified disorder of bone density 2 Mark Morris. [address], [place], [place], [address] , [place]. [phone] OFFICE/OUTPA TIENT VISIT, [facility], [address], [place], [place], [address], [place] tel:[phone] [facility] UTI1 (chief complaint) Urinary tract infectionHematuria 2 Mark Morris. [address], [place], [place], [address] , [place]. tel:[phone] OFFICE/OUTPA TIENT VISIT, [facility], [address], [place], [place], [address], [place] tel:[phone] [facility] anxiety1 (chief complaint) opioid1 (chief complaint) COVID1 (chief complaint) Generalized Anxiety DisorderCOVID-19Opi oid dependence with withdrawal 2 Mark Morris. [address], [place], [place], [address] , [place]. tel:[phone] OFFICE/OUTPA TIENT VISIT, [facility], [address], [place], [place], [address], [place] tel:[phone] [facility] anxiety1 (chief complaint) pain (chief complaint) tobacco1 (chief complaint) Generalized Anxiety DisorderOpioid dependence, uncomplicatedAbnorm al weight gainOther specified disorder of bone densityTobacco use 1 Mark Boykin [address], [place], [place], [address] , [place]. tel: [phone] PREV VISIT, EST, AGE 40-64 [facility], [address], [place], [place], [address], [place] tel:[phone] [facility] physical (chief complaint) Encounter for general adult medical examination without abnormal findings 1 Mark Boykin [address], [place], [place], [address] , [place]. tel: [phone] OFFICE/OUTPA TIENT VISIT, [facility], [address] [place], [address], [place] tel:[phone] [facility] anxiety1 (chief complaint) insomnia1 (chief complaint) breast (chief complaint) osteopenia 1 (chief complaint) Generalized Anxiety DisorderEncounter for oth screening for malignant neoplasm of breastEncounter for screening for osteoporosisTobacco useInsomnia 1 Mark Boykin [address], [place], [place], [address] , [place]. tel: [phone] OFFICE/OUTPA TIENT VISIT, [facility], [address], [place], [place], [address], [place] tel:[phone] [facility] anxiety1 (chief complaint) LDCT (chief complaint) GERD1 (chief complaint) GERD without esophagitisGenerali zed Anxiety DisorderTobacco use 1 Mark Boykin [address], [place], [place], [address] , [place]. tel: [phone] OFFICE/OUTPA TIENT VISIT, [facility], [address] [place], [address], [place] tel:[phone] [facility] anxiety1 (chief complaint) Generalized Anxiety Disorder 1 Mark Boykin [address], [place], [place], [address] , [place]. tel: [phone] OFFICE/OUTPA TIENT VISIT, [facility], [address], [place], [place], [address], [place] tel:[phone] [facility] anxiety1 (chief complaint) GERD1 (chief complaint) chronic pain1 (chief complaint) UTI1 (chief complaint) GERD without esophagitisGenerali zed Anxiety DisorderChronic pain syndromeAcute cystitis with hematuria 1 Mark Boykin [address], [place], [place], [address] , [place]. tel: [phone] OFFICE/OUTPA TIENT VISIT, [facility], [address], [place], [place], [address], [place] tel:[phone] [facility] GERD1 (chief complaint) abd pain1 (chief complaint) Generalized Anxiety DisorderGERD without esophagitisAcute cystitis with hematuria 1 Mark Boykin [address], [place], [place], [address] , [place]. tel: [phone] OFFICE/OUTPA TIENT VISIT, [facility], [address], [place], [place], [address], [place] tel:[phone] [facility] anxiety1 (chief complaint) GERD1 (chief complaint) Generalized Anxiety DisorderGERD w/o esophagitis 1 Mark Boykin [address], [place], [place], [address] , [place]. tel: [phone] OFFICE/OUTPA TIENT VISIT, [facility], [address], [place], [place], [address], [place] tel:[phone] [facility] anxiety1 (chief complaint) Generalized Anxiety Disorder 1 Mark Boykin [address], [place], [place], [address] , [place]. tel:[phone] OFFICE/OUTPA TIENT VISIT, [facility], [address], [place], [place], [address], [place] tel:[phone] [facility] anxiety1 (chief complaint) weight gain1 (chief complaint) Abnormal weight gainGeneralized Anxiety Disorder Apr- 1 Mark Morris. [address], [place], [place], [address] , [place]. tel: [phone] OFFICE/OUTPA TIENT VISIT, [facility], [address], [place], [place], [address], [place] tel:[phone] [facility] anxiety1 (chief complaint) Generalized Anxiety Disorder 1 Mark Boykin [address], [place], [place], [address] , [place]. tel:[phone] OFFICE/OUTPA TIENT VISIT, [facility], [address], [place], [place], [address], [place] tel:[phone] [facility] anxiety1 (chief complaint) chronic pain1 (chief complaint) Generalized Anxiety DisorderChronic pain syndromeEncounter for oth screening for malignant neoplasm of breastEncounter for screening for osteoporosis 1 Mark Morris. [address], [place], [place], [address] , [place]. tel: [phone] OFFICE/OUTPA TIENT VISIT, [facility], [address], [place], [place], [address], [place] tel:[phone] [facility] GERD (chief complaint) GERD1 (chief complaint) anxiety1 (chief complaint) GERD w/o esophagitisGenerali zed Anxiety Disorder 0 Mark Morris. [address], [place], [place], [address] , [place]. tel:[phone] OFFICE/OUTPA TIENT VISIT, [facility], [address], [place], [place], [address], [place] tel:[phone] [facility] anxiety1 (chief complaint) insomni1 (chief complaint) InsomniaGeneralized Anxiety Disorder Nov-0 5-202 0 Mark Morris. [address], [place], [place], [address] , [place]. tel:[phone] OFFICE/OUTPA TIENT VISIT, [facility], [address], [place], [place], [address], [place] tel:[phone] [facility] anxiety1 (chief complaint) abd pain1 (chief complaint) Abdominal painGeneralized Anxiety Disorder Oct-0 8-202 0 Mark Morris. [address], [place], [place], [address] , [place]. tel:[phone] OFFICE/OUTPA TIENT VISIT, [facility], [address], [place], [place], [address], [place] tel:[phone] [facility] anxiety1 (chief complaint) abd pain1 (chief complaint) Chest painGeneralized Anxiety Disorder Sep- 0-202 0 Mark Boykin [address], [place], [place], [address] , [place]. tel:[phone] OFFICE/OUTPA TIENT VISIT, [facility], [address], [place], [place], [address], [place] tel:[phone] [facility] anxiety1 (chief complaint) tobacco1 (chief complaint) Generalized Anxiety DisorderTobacco use 0-202 0 Mark Morris. [address], [place], [place], [address] , [place]. tel:[phone] OFFICE/OUTPA TIENT VISIT, [facility], [address], [place], [place], [address], [place] tel:[phone] [facility] anxiety2 (chief complaint) neuropathy 1 (chief complaint) Generalized Anxiety DisorderNeuropathyT obacco use Aug-0 7-202 0 Mark Morris. [address], [place], [place], [address] , [place]. tel:[phone] Referring Provider: Arturo Flores, [address], [place], [place], [address]. tel:[phone] PREV VISIT, EST, AGE 40-64 [facility], [address], [place], [place], [address], [place] tel:[phone] [facility] Physical (chief complaint) Encntr for general adult medical exam w/o abnormal findings Blayne- 0 Mark Morris. [address], [place], [place], [address] , [place]. [phone] Referring Provider: Arturo Flores [address], [place], [place], [address]. tel:[phone] OFFICE/OUTPA TIENT VISIT, [facility], [address], [place], [place], [address], [place] tel:[phone] [facility] anxiety1 (chief complaint) headache1 (chief complaint) HeadacheGeneralized Anxiety Disorder June- 0 Mark Morris. [address], [place], [place], [address] , [place]. [phone] Referring Provider: Lynne Barrios [address], [place], [place], [address]. tel:[phone] OFFICE/OUTPA TIENT VISIT, EST [facility], [address], [place], [place], [address], [place] tel:[phone] [facility] anxiety1 (chief complaint) tobacco (chief complaint) Generalized Anxiety DisorderTobacco use May-0 0 Mark Morris. [address], [place], [place], [address] , [place]. tel:[phone] Referring Provider: Arturo Flores, [address], [place], [place], [address]. tel:[phone] OFFICE/OUTPA TIENT VISIT, EST [facility], [address], [place], [place], [address], [place] tel:[phone] [facility] anxiety1 (chief complaint) fibromyalg ia1 (chief complaint) tobacco1 (chief complaint) Generalized Anxiety DisorderFibromyalgi aTobacco use 0 Mark Boykin [address], [place], [place], [address] , [place]. [phone] Referring Provider: Lynne Barrios [address], [place], [place], [address]. tel:[phone] OFFICE/OUTPA TIENT VISIT, [facility], [address], [place], [place], [address], [place] tel:[phone] [facility] anxiety1 (chief complaint) sick (chief complaint) Generalized Anxiety DisorderAcute upper respiratory infection, unspecified 0 Mark Batista [address], [place], [place], [address] , [place]. [phone] Referring Provider: Lynne Barrios [address], [place], [place], [address]. tel:[phone] OFFICE/OUTPA TIENT VISIT, [facility], [address], [place], [place], [address], [place] tel:[phone] [facility] anxiety1 (chief complaint) skin (chief complaint) Cellulitis of abdominal wallGeneralized Anxiety Disorder 0 Mark Bat[address], [place], [place], [address] , [place]. tel:[phone] Referring Provider: Lynne Barrios [address], [place], [place], [address]. tel:[phone] OFFICE/OUTPA TIENT VISIT, [facility], [address], [place], [place], [address], [place] tel:[phone] [facility] anxiety1 (chief complaint) neuropathy 1 (chief complaint) skin issue1 (chief complaint) NeuropathyGeneraliz ed Anxiety DisorderCellulitis of abdominal wall 201 9 Mark Boykin [address], [place], [place], [address] , [place]. [phone] Referring Provider: Arturo Flores, [address], [place], [place], [address]. tel:[phone] OFFICE/OUTPA TIENT VISIT, [facility], [address], [place], [place], [address], [place] [phone] [facility] anxiety1 (chief complaint) neuropathy (chief complaint) hep c (chief complaint) NeuropathyHepatitis CGeneralized Anxiety Disorder 9 Mark Morris. [address], [place], [place], [address] , [place]. [phone] Referring Provider: Lynne Barrios [address], [place], [place], [address]. tel:[phone] OFFICE/OUTPA TIENT VISIT, [facility], [address], [place], [place], [address], [place] tel:[phone] [facility] anxiety1 (chief complaint) neuropathy 1 (chief complaint) NeuropathyGeneraliz ed Anxiety Disorder Nov-0 9 Mark Morris. [address], [place], [place], [address] , [place]. [phone] Referring Provider: Lynne Barrios [address], [place], [place], [address]. tel:[phone] OFFICE/OUTPA TIENT VISIT, [facility], [address], [place], [place], [address], [place] tel:[phone] [facility] anxiety1 (chief complaint) hep c (chief complaint) neuropathy 1 (chief complaint) shoulder numbness1 (chief complaint) NeuropathyGeneraliz ed Anxiety DisorderHepatitis CHeadache Oct-0 9 Mark Morris. [address], [place], [place], [address] , [place]. [phone] Referring Provider: Lynne Barrios [address], [place], [place], [address]. tel:[phone] OFFICE/OUTPA TIENT VISIT, EST [facility], [address], [place], [place], [address], [place] tel:[phone] [facility] anxiety1 (chief complaint) skin infection1 (chief complaint) chest pain1 (chief complaint) toe numbness1 (chief complaint) Generalized Anxiety DisorderCellulitis of abdominal wallNeuropathyChest pain Sep- 9 Mark Morris. [address], [place], [place], [address] , [place]. tel:[phone] Referring Provider: Arturo Flores, [address], [place], [place], [address]. tel:[phone] OFFICE/OUTPA TIENT VISIT, [facility], [address], [place], [place], [address], [place] tel:[phone] [facility] anxiety1 (chief complaint) chest pain1 (chief complaint) Generalized Anxiety DisorderEssential (primary) hypertensionChest painEncounter for oth screening for malignant neoplasm of breast 9 Mark Morris. [address], [place], [place], [address] , [place]. tel:[phone] OFFICE/OUTPA TIENT VISIT, EST [facility], [address], [place], [place], [address], [place] tel:[phone] [facility] anxiety1 (chief complaint) HTN (chief complaint) chest pain1 (chief complaint) Essential (primary) hypertensionGeneral ized Anxiety DisorderChest pain Jul- 3201 9 Mark Morris. [address], [place], [place], [address] , [place]. tel:[phone] Referring Provider: Lynne Barrios [address], [place], [place], [address]. tel:[phone] PREV VISIT, EST, AGE 40-64 [facility], [address], [place], [place], [address], [place] tel:[phone] [facility] Physical (chief complaint) Encntr for general adult medical exam w/o abnormal findings May-0 2-201 9 Mark Morris. [address], [place], [place], [address] , [place]. [phone] Referring Provider: Lynne Barrios [address], [place], [place], [address]. tel:[phone] OFFICE/OUTPA TIENT VISIT, [facility], [address], [place], [place], [address], [place] tel:[phone] [facility] GERD1 (chief complaint) anxiety1 (chief complaint) HTN (chief complaint) GERD without esophagitisEssentia l (primary) hypertensionGeneral ized Anxiety DisorderBariatric surgery status 9 Mark Boykin [address], [place], [place], [address] , [place]. [phone] Referring Provider: Lynne Barrios [facility], [place], [place], [address]. tel:[phone] OFFICE/OUTPA TIENT VISIT, [facility], [address], [place], [place], [address], [place] tel:[phone] [facility] anxiety1 (chief complaint) palpitatio n1 (chief complaint) HLP (chief complaint) lung (chief complaint) sore throat1 (chief complaint) Generalized Anxiety DisorderHyperlipide miaPalpitationsSore throatTobacco use 9 Mark Morris. [address], [place], [place], [address] , [place]. [phone] Referring Provider: Lynne Barrios [address], [place], [place], [address]. tel:[phone] OFFICE/OUTPA TIENT VISIT, [facility], [address], [place], [place], [address], [place] tel:[phone] [facility] HTN (chief complaint) anxiety1 (chief complaint) tobacco1 (chief complaint) GERD1 (chief complaint) GERD without esophagitisGenerali zed Anxiety DisorderEssential (primary) hypertensionTobacco useHepatitis C 9 Mark Morris. [address], [place], [place], [address] , [place]. tel:[phone] Referring Provider: Lynne Barrios [address], [place], [place], [address]. tel:[phone] OFFICE/OUTPA TIENT VISIT, [facility], [address], [place], [place], [address], [place] tel:[phone] [facility] HTN (chief complaint) anxity1 (chief complaint) HLP (chief complaint) GERD1 (chief complaint) GERD without esophagitisHyperlip idemiaGeneralized Anxiety DisorderEssential (primary) hypertension 9 Mark Morris. [address], [place], [place], [address] , [place]. tel:[phone] Referring Provider: Lynne Barrios [address], [place], [place], [address]. tel:[phone] OFFICE/OUTPA TIENT VISIT, [facility], [address], [place], [place], [address], [place] tel:[phone] [facility] sinus (chief complaint) GERD1 (chief complaint) Acute sinusitisGERD without esophagitis 8 Mark Morris. [address], [place], [place], [address] , [place]. tel:[phone] Referring Provider: Lynne Barrios [address], [place], [place], [address]. tel:[phone] OFFICE/OUTPA TIENT VISIT, [facility], [address], [place], [place], [address], [place] tel:[phone] [facility] anxiety1 (chief complaint) GERD1 (chief complaint) GERD without esophagitisGenerali zed Anxiety Disorder 8 Mark Morris. [address], [place], [place], [address] , [place]. tel:[phone] Referring Provider: Lynne Barrios [address], [place], [place], [address]. tel:[phone] OFFICE/OUTPA TIENT VISIT, [facility], [address], [place], [place], [address], [place] tel:[phone] [facility] HTn (chief complaint) GERD1 (chief complaint) anxiety1 (chief complaint) chronic pain1 (chief complaint) Essential (primary) hypertensionGERD without esophagitisGenerali zed Anxiety DisorderChronic pain syndromeBariatric surgery status 8 Mark Morris. [address], [place], [place], [address] , [place]. tel:[phone] Referring Provider: Lynne Barrios [address], [place], [place], [address]. tel:[phone] OFFICE/OUTPA TIENT VISIT, [facility], [address], [place], [place], [address], [place] tel:[phone] [facility] Anxiety1 (chief complaint) HTN (chief complaint) foot pain1 (chief complaint) dizziness1 (chief complaint) Sarmiento's metatarsalgia of rt legDizzinessGeneral ized Anxiety DisorderAbnormal weight lossEssential (primary) hypertension 8 Mark Morris. [address], [place], [place], [address] , [place]. tel:[phone] Referring Provider: Lynne Barrios [address], [place], [place], [address]. tel:[phone] OFFICE/OUTPA TIENT VISIT, [facility], [address], [place], [place], [address], [place] tel:[phone] [facility] HTN (chief complaint) GERD1 (chief complaint) anxiety1 (chief complaint) foot pain1 (chief complaint) GERD without esophagitisAbnormal weight lossEssential (primary) hypertensionMorton' s metatarsalgia of rt legGeneralized Anxiety Disorder 8 Mark Morris. [address], [place], [place], [address] , [place]. [phone] Referring Provider: Lynne Barrios [address], [place], [place], [address]. tel:[phone] OFFICE/OUTPA TIENT VISIT, [facility], [address], [place], [place], [address], [place] tel:[phone] [facility] anxiety1 (chief complaint) GERD1 (chief complaint) HTN (chief complaint) weight loss1 (chief complaint) Abnormal weight lossEssential (primary) hypertensionGeneral ized Anxiety DisorderGERD without esophagitisEncounte r for screening for osteoporosis 8 Mark Morris. [address], [place], [place], [address] , [place]. [phone] OFFICE/OUTPA TIENT VISIT, [facility], [address], [place], [place], [address], [place] tel:[phone] [facility] HTN (chief complaint) anxiety1 (chief complaint) Essential (primary) hypertensionGeneral ized Anxiety Disorder 8 Mark Morris. [address], [place], [place], [address] , [place]. [phone] Referring Provider: Lynne Barrios [address], [place], [place], [address]. tel:[phone] OFFICE/OUTPA TIENT VISIT, [facility], [address], [place], [place], [address], [place] tel:[phone] [facility] ANXIETY1 (chief complaint) HTN (chief complaint) GERD1 (chief complaint) weight loss1 (chief complaint) Essential (primary) hypertensionGeneral ized Anxiety DisorderAbnormal weight lossGERD without esophagitis 8 Mark Boykin [address], [place], [place], [address] , [place]. [phone] Referring Provider: Lynne Barrios [address], [place], [place], [address]. tel:[phone] OFFICE/OUTPA TIENT VISIT, EST [facility], [address], [place], [place], [address], [place] tel:[phone] [facility] HLP (chief complaint) HTN (chief complaint) anxiety1 (chief complaint) kcl1 (chief complaint) Essential (primary) hypertensionBariatr ic surgery statusHypokalemiaHy perlipidemiaGeneral ized Anxiety Disorder June-0 8 Mark Morris. [address], [place], [place], [address] , [place]. [phone] Referring Provider: Lynne Barrios [address], [place], [place], [address]. tel:[phone] OFFICE/OUTPA TIENT VISIT, EST [facility], [address], [place], [place], [address], [place] tel:[phone] [facility] weight loss1 (chief complaint) HTN (chief complaint) anxiety1 (chief complaint) Bariatric surgery statusHypokalemiaGe neralized Anxiety DisorderEssential (primary) hypertension May- 3201 8 Mark Morris. [address], [place], [place], [address] , [place]. tel:[phone] Referring Provider: Lynne Barrios [address], [place], [place], [address]. tel:[phone] PREV VISIT, EST, AGE 40-64 [facility], [address], [place], [place], [address], [place] tel:[phone] [facility] Physical (chief complaint) Encounter for general adult medical exam w abnormal findingsHyperlipide miaEssential (primary) hypertensionGERD without esophagitisGenerali zed Anxiety Disorder Apr- 8201 8 Mark Morris. [address], [place], [place], [address] , [place]. tel:[phone] Referring Provider: Lynne Barrios [address], [place], [place], [address]. tel:[phone] OFFICE/OUTPA TIENT VISIT, [facility], [address], [place], [place], [address], [place] tel:[phone] [facility] HTN (chief complaint) HLP (chief complaint) anxiety1 (chief complaint) obeisty1 (chief complaint) HyperlipidemiaEssen tial (primary) hypertensionGeneral ized anxiety disorderBody mass index (BMI) 40.0-44.9, adult 8 Mark Boykin [address], [place], [place], [address] , [place]. tel:[phone] Referring Provider: Lynne Barrios [address], [place], [place], [address]. tel:[phone] OFFICE/OUTPA TIENT VISIT, [facility], [address], [place], [place], [address], [place] tel:[phone] [facility] HTN (chief complaint) LFT1 (chief complaint) GERD1 (chief complaint) headache1 (chief complaint) HLP (chief complaint) Liver diseaseEssential (primary) hypertensionGERD without esophagitisHyperlip idemia 8 Mark Boykin [address], [place], [place], [address] , [place]. tel:[phone] Referring Provider: Lynne Barrios [address], [place], [place], [address]. tel:[phone] OFFICE/OUTPA TIENT VISIT, [facility], [address], [place], [place], [address], [place] tel:[phone] [facility] abd pain1 (chief complaint) anxiety1 (chief complaint) headache1 (chief complaint) Liver diseaseGeneralized anxiety disorderBody mass index (BMI) 40.0-44.9, adultHeadache 8 Mark Boykin [address], [place], [place], [address] , [place]. tel:[phone] Referring Provider: Lynne Barrios [address], [place], [place], [address]. tel:[phone] OFFICE/OUTPA TIENT VISIT, [facility], [address], [place], [place], [address], [place] tel:[phone] [facility] anxiety1 (chief complaint) obesity1 (chief complaint) HTn (chief complaint) headache1 (chief complaint) Essential (primary) hypertensionBody mass index (BMI) 40.0-44.9, adultGeneralized anxiety disorderHeadache 7 Mark Morris. [address], [place], [place], [address] , [place]. tel:[phone] Referring Provider: Lynne Bar[address], [place], [place], [address]. tel:[phone] OFFICE/OUTPA TIENT VISIT, [facility], [address], [place], [place], [address], [place] tel:[phone] [facility] anxiety1 (chief complaint) obesity1 (chief complaint) GERD1 (chief complaint) Generalized anxiety disorderBody mass index (BMI) 40.0-44.9, adultGERD without esophagitis 7 Mark Boykin [address], [place], [place], [address] , [place]. tel:[phone] Referring Provider: Lynne [address], [place], [place], [address]. tel:[phone] OFFICE/OUTPA TIENT VISIT, [facility], [address], [place], [place], [address], [place] tel:[phone] [facility] anxiety1 (chief complaint) hip pain1 (chief complaint) HLP (chief complaint) obesity1 (chief complaint) Generalized anxiety disorderChronic pain syndromeBody mass index (BMI) 40.0-44.9, adultHyperlipidemia 7 Mark Boykin [address], [place], [place], [address] , [place]. tel:[phone] OFFICE/OUTPA TIENT VISIT, [facility], [address], [place], [place], [address], [place] tel:[phone] [facility] anxiety1 (chief complaint) hip pain1 (chief complaint) Generalized Anxiety DisorderChronic pain syndrome 7 Mark Morris. [address], [place], [place], [address] , [place]. tel:[phone] Referring Provider: Arturo Flores [address], [place], [place], [address]. tel:[phone] OFFICE/OUTPA TIENT VISIT, [facility], [address], [place], [place], [address], [place] tel:[phone] [facility] anxiety1 (chief complaint) HTN (chief complaint) HLP (chief complaint) GERD1 (chief complaint) Essential (primary) hypertensionBody mass index (BMI) 40.0-44.9, adultHyperlipidemia GERD without esophagitis Mark Morris. [address], [place], [place], [address] , [place]. tel:[phone] OFFICE/OUTPA TIENT VISIT, [facility], [address], [place], [place], [address], [place] tel:[phone] [facility] anxieyt1 (chief complaint) HTN (chief complaint) HLP (chief complaint) weight gain1 (chief complaint) Essential (primary) hypertensionAbnorma l weight gainGeneralized anxiety disorderHyperlipide carroll 7 Mark Morris. [address], [place], [place], [address] , [place]. tel:[phone] Referring Provider: Lynne Barrios [address], [place], [place], [address]. tel:[phone] OFFICE/OUTPA TIENT VISIT, [facility], [address], [place], [place], [address], [place] tel:[phone] [facility] HLP (chief complaint) anxiety1 (chief complaint) obesity1 (chief complaint) HTN (chief complaint) Essential (primary) hypertensionGeneral ized anxiety disorderHyperlipide miaBody mass index (BMI) 45.0-49.9, adult 7 Mark Morris. [address], [place], [place], [address] , [place]. tel:[phone] Referring Provider: Lynne [address], [place], [place], [address]. tel:[phone] OFFICE/OUTPA TIENT VISIT, [facility], [address], [address], [place] tel:[phone] [facility] anxiety1 (chief complaint) HTN (chief complaint) stress test (chief complaint) Weight gain1 (chief complaint) Body mass index (BMI) 40.0-44.9, adultGeneralized anxiety disorderEssential (primary) hypertensionAbnorma l result of other cardiovascular function study Mark Morris. [address], [place], [place], [address] , [place]. tel:[phone] Referring Provider: Lynne [address], [place], [place], [address]. tel:[phone] OFFICE/OUTPA TIENT VISIT, [facility], [address], [address], [place] tel:[phone] [facility] hip pain1 (chief complaint) chest pain1 (chief complaint) anxiety1 (chief complaint) edema1 (chief complaint) Generalized Anxiety DisorderEssential (primary) hypertensionChest painPain in right hip 7 Mark Morris. [address], [place], [place], [address] , [place]. tel:[phone] Referring Provider: Lynne [address], [place], [place], [address]. tel:[phone] PREV VISIT, EST, AGE 40-64 [facility], [address], [place], [place], [address], [place] tel:[phone] [facility] Physical (chief complaint) Encounter for general adult medical exam w abnormal findingsGeneralized anxiety disorderEssential (primary) hypertensionGERD without esophagitis 7 Mark Boykin [address], [place], [place], [address] , [place]. tel:[phone] Referring Provider: Lynne Barrios [address], [place], [place], [address]. tel:[phone] OFFICE/OUTPA TIENT VISIT, [facility], [address], [place], [place], [address], [place] tel:[phone] [facility] HTN (chief complaint) anxiety1 (chief complaint) hip pain1 (chief complaint) chest pain1 (chief complaint) Essential (primary) hypertensionGeneral ized anxiety disorderPain in right hipChest pain 7 Mark Boykin [address], [place], [place], [address] , [place]. [phone] Referring Provider: Lynne Barrios [address], [place], [place], [address]. tel:[phone] OFFICE/OUTPA TIENT VISIT, [facility], [address], [place], [place], [address], [place] tel:[phone] [facility] anxiety1 (chief complaint) pelvic mass1 (chief complaint) hip pain1 (chief complaint) GERD1 (chief complaint) Generalized Anxiety DisorderPain in right hipOther pelvic massGERD without esophagitis 7 Mark Boykin [address], [place], [place], [address] , [place]. [phone] Referring Provider: Lynne Bar[address], [place], [place], [address]. tel:[phone] OFFICE/OUTPA TIENT VISIT, [facility], [address], [place], [place], [address], [place] tel:[phone] [facility] anxiety1 (chief complaint) HTN (chief complaint) pelvic mass (chief complaint) Essential (primary) hypertensionGeneral ized anxiety disorder Jan 6 Flores Arturo. [address], [place], [place], [address] , [place]. tel:[phone] Referring Provider: Lynne [address], [place], [place], [address]. tel:[phone] OFFICE/OUTPA TIENT VISIT, [facility], [address], [place], [place], [address], [place] tel:[phone] [facility] anxiety1 (chief complaint) HTN (chief complaint) pelvvic pain1 (chief complaint) Essential (primary) hypertensionGeneral ized anxiety disorderOther pelvic mass 6 Mark Boykin [address], [place], [place], [address] , [place]. tel:[phone] Referring Provider: Lynne [address], [place], [place], [address]. tel:[phone] OFFICE/OUTPA TIENT VISIT, [facility], [address], [place], [place], [address], [place] tel:[phone] [facility] HTN (chief complaint) anxiety1 (chief complaint) gastric ulcer1 (chief complaint) hep C (chief complaint) Chronic viral hepatitis CEssential (primary) hypertensionGeneral ized anxiety disorderAbnormal weight loss 6 Mark Bat[address], [place], [place], [address] , [place]. [phone] Referring Provider: Lynne [address], [place], [place], [address]. tel:[phone] OFFICE/OUTPA TIENT VISIT, [facility], [address], [place], [place], [address], [place] tel:[phone] [facility] anxeity1 (chief complaint) HTN (chief complaint) GERD1 (chief complaint) weight loss1 (chief complaint) Chronic viral hepatitis CGeneralized anxiety disorderAbnormal weight lossEssential (primary) hypertension Oct- 6 Mark Boykin [address], [place], [place], [address] , [place]. tel:[phone] Referring Provider: Lynne Bar[address], [place], [place], [address]. tel:[phone] OFFICE/OUTPA TIENT VISIT, [facility], [address], [place], [place], [address], [place] tel:[phone] [facility] weight loss (chief complaint) anxiety1 (chief complaint) edema1 (chief complaint) hernia1 (chief complaint) Abnormal weight lossGeneralized anxiety disorderEdemaUmbili haresh hernia 6 Mark Morris. [address], [place], [place], [address] , [place]. [phone] Referring Provider: Lynne Bar[address], [place], [place], [address]. tel:[phone] OFFICE/OUTPA TIENT VISIT, [facility], [address], [place], [place], [address], [place] tel:[phone] [facility] HTN (chief complaint) Weight loss (chief complaint) anxiety1 (chief complaint) Chronic viral hepatitis CAbnormal weight lossEssential (primary) hypertensionGeneral ized anxiety disorder 6 Mark Morris. [address], [place], [place], [address] , [place]. [phone] Referring Provider: Lynne Bar[address], [place], [place], [address]. tel:[phone] OFFICE/OUTPA TIENT VISIT, [facility], [address], [place], [place], [address], [place] tel:[phone] [facility] GERD1 (chief complaint) HTN (chief complaint) dizziness (chief complaint) dizzy1 (chief complaint) weight loss1 (chief complaint) Abnormal weight lossGeneralized anxiety disorderEssential (primary) hypertensionDizzine ss 6 Mark Morris. [address], [place], [place], [address] , [place]. tel:[phone] Referring Provider: Lynne Barrios [address], [place], [place], [address]. tel:[phone] OFFICE/OUTPA TIENT VISIT, [facility], [address], [place], [place], [address], [place] tel:[phone] [facility] GERD1 (chief complaint) anxiety1 (chief complaint) Edema (chief complaint) HLP (chief complaint) vitamin D (chief complaint) Edema, unspecifiedChronic viral hepatitis CHyperlipidemiaGene ralized anxiety disorder 6 Mark Morris. [address], [place], [place], [address] , [place]. tel:[phone] Referring Provider: Lynne Barrios [address], [place], [place], [address]. tel:[phone] OFFICE/OUTPA TIENT VISIT, [facility], [address], [place], [place], [address], [place] tel:[phone] [facility] hep C (chief complaint) anxiety1 (chief complaint) HTN (chief complaint) GERD1 (chief complaint) Chronic viral hepatitis CGeneralized anxiety disorderEssential (primary) hypertensionGERD w/o esophagitis 6 Mark Morris. [address], [place], [place], [address] , [place]. tel:[phone] Referring Provider: Lynne Barrios [address], [place], [place], [address]. tel:[phone] PREV VISIT, EST, AGE 40-64 [facility], [address], [place], [place], [address], [place] tel:[phone] [facility] PHysical (chief complaint) Encounter for general adult medical exam w abnormal findingsEssential (primary) hypertensionFatigue Generalized anxiety disorder 6 Mark Morris. [address], [place], [place], [address] , [place]. tel:[phone] Referring Provider: Lynne Barrios [address], [place], [place], [address]. tel:[phone] OFFICE/OUTPA TIENT VISIT, [facility], [address], [place], [place], [address], [place] tel:[phone] [facility] hep C (chief complaint) anxiety1 (chief complaint) screening test (chief complaint) Generalized anxiety disorderChronic viral hepatitis CFatty liverDietary surveillance and counseling 6 Mark Morris. [address], [place], [place], [address] , [place]. [phone] Referring Provider: Lynne Barrios [facility] A, [place], [place], [address]. tel:[phone] OFFICE/OUTPA TIENT VISIT, [facility], [address], [place], [place], [address], [place] tel:[phone] [facility] GERD1 (chief complaint) hep C (chief complaint) edema1 (chief complaint) anxiety1 (chief complaint) Encounter for screening for osteoporosisGeneral ized anxiety disorderLocalized edemaGERD without esophagitis 6 Mark Morris. [address], [place], [place], [address] , [place]. [phone] Referring Provider: Lynne Barrios [facility] A, [place], [place], [address]. tel:[phone] OFFICE/OUTPA TIENT VISIT, [facility], [address] [place], [address], [place] tel:[phone] [facility] abd pain1 (chief complaint) Anxiety1 (chief complaint) HTN1 (chief complaint) hep C1 (chief complaint) Disease of gallbladder, unspecifiedEssentia l (primary) hypertensionGeneral ized anxiety disorderChronic viral hepatitis C 5 Mark Bat[address], [place], [place], [address] , [place]. [phone] Referring Provider: Lynne Barrios [address], [place], [place], [address]. tel:[phone] OFFICE/OUTPA TIENT VISIT, [facility], [address], [place], [place], [address], [place] tel:[phone] [facility] abd pain1 (chief complaint) anxiety1 (chief complaint) Upper abdominal painGERD without esophagitisGenerali zed anxiety disorderChronic viral hepatitis C 5 Mark Morris. [address], [place], [place], [address] , [place]. tel:[phone] Referring Provider: Arturo Flores, [address], [place], [place], [address]. tel:[phone] OFFICE/OUTPA TIENT VISIT, [facility], [address], [place], [place], [address], [place] tel:[phone] [facility] Hep C (chief complaint) insomnia1 (chief complaint) edema (chief complaint) HTN1 (chief complaint) Chronic viral hepatitis CFatty liverGeneralized anxiety disorderOther insomnia 5 Mark Morris. [address], [place], [place], [address] , [place]. tel:[phone] Referring Provider: Lynne Barrios [address], [place], [place], [address]. tel:[phone] OFFICE/OUTPA TIENT VISIT, [facility], [address], [place], [place], [address], [place] tel:[phone] [facility] hep C (chief complaint) insomani (chief complaint) Hepatitis CSleep disorderInsomniaDie tary surveillance and counseling 5 Mark Morris. [address], [place], [place], [address] , [place]. tel:[phone] Referring Provider: Arturo Flores [address], [place], [place], [address]. tel:[phone] OFFICE/OUTPA TIENT VISIT, [facility], [address], [place], [place], [address], [place] tel:[phone] [facility] edema (chief complaint) fatigue (chief complaint) HTN (chief complaint) Dietary surveillance and counselingEdemaUnsp ecified essential hypertensionGeneral ized anxiety disorderFatigue 5 Mark Morris. [address], [place], [place], [address] , [place]. tel:[phone] Referring Provider: Lynne Barrios [address], [place], [place], [address]. tel:[phone] OFFICE/OUTPA TIENT VISIT, [facility], [address], [place], [place], [address], [place] tel:[phone] [facility] fatigue (chief complaint) Edema (chief complaint) HTN (chief complaint) Dietary surveillance and counselingFatigueSl eep apneaUnspecified essential hypertension 5 Mark Morris. [address], [place], [place], [address] , [place]. tel:[phone] Referring Provider: Lynne Barrios [address], [place], [place], [address]. tel:[phone] OFFICE/OUTPA TIENT VISIT, [facility], [address], [place], [place], [address], [place] tel:[phone] [facility] pain (chief complaint) HTN (chief complaint) Edema (chief complaint) Anxiety (chief complaint) Dietary surveillance and counselingUnspecifi ed essential hypertensionEdemaGe neralized anxiety disorder 5 Mark Morris. [address], [place], [place], [address] , [place]. tel:[phone] Referring Provider: Lynne Barrios [address], [place], [place], [address]. tel:[phone] OFFICE/OUTPA TIENT VISIT, [facility], [address], [place], [place], [address], [place] tel:[phone] [facility] back pain (chief complaint) anxiety (chief complaint) Dietary surveillance and counselingKnee painHip painLumbago 5 Mark Morris. [address], [place], [place], [address] , [place]. tel:[phone] Referring Provider: Lynne Barrios [address], [place], [place], [address]. tel:[phone] OFFICE/OUTPA TIENT VISIT, [facility], [address], [place], [place], [address], [place] tel:[phone] [facility] leg pain (chief complaint) anxiety (chief complaint) HTN (chief complaint) Dietary surveillance and counselingUnspecifi ed essential hypertensionGeneral ized anxiety disorderLeg pain 5 Mark Boykin [address], [place], [place], [address] , [place]. tel:[phone] Referring Provider: Lynne Barrios [facility] A, [place], [place], [address]. tel:[phone] OFFICE/OUTPA TIENT VISIT, [facility], [address], [place], [place], [address], [place] tel:[phone] [facility] HTN (chief complaint) hyperglyce carroll (chief complaint) anxiety (chief complaint) edema (chief complaint) Dietary surveillance and counselingHypertens ion, UnspecifiedOTHER ABNORMAL GLUCOSEGeneralized anxiety disorderEdema 0 5 Mark Boykin [address], [place], [place], [address] , [place]. tel:[phone] Referring Provider: Lynne Barrios [address], [place], [place], [address]. tel:[phone] OFFICE/OUTPA TIENT VISIT, [facility], [address], [place], [place], [address], [place] tel:[phone] [facility] glucose (chief complaint) TG (chief complaint) anxiety (chief complaint) Dietary surveillance and counselingOTHER ABNORMAL GLUCOSEOther and unspecified hyperlipidemiaGener alized anxiety disorderHypertensio n, Unspecified Apr- 0 5 Mark Boykin [address], [place], [place], [address] , [place]. [phone] Referring Provider: Arturo Flores, [address], [place], [place], [address]. tel:[phone] PREV VISIT, NEW, AGE 40-64 [facility], [address], [place], [place], [address], [place] tel:[phone] [facility] Physical (chief complaint) Dietary surveillance and counselingRoutine Medical ExamRoutine Medical Exam 5 Mark Morris. [address], [place], [place], [address] , [place]. [phone] Family History Family Member Type Diagnosis Age At Onset Sister Problem (finding) Diabetes mellitus Father Problem (finding) Diabetes mellitus Father Problem (finding) cancer, skin Mother Problem (finding) Hypertension Mother Problem (finding) Diabetes mellitus Payers Payer name Insurance type Covered democrat ID Dimple hernandez(s) [facility] CI [id number] Social History Type Description Quantity Date Captured Comments Alcohol Use Details No Caffeine Use Details Unknown Tobacco Use Status Ex-cigarette smoker 025 Smoking Status Former smoker Sex Female Vital Signs Date / Time: Height Weight BMI Pulse Rate Blood Pressure Temperature Respiratory Rate Body Surface Area Head Circumference BMI percentile Pulse Ox Inhaled Ox 10:50 AM 64.00 in 148.40 lbs 25.4 7 kg/m eter (2) 58 /min 130/86 mm[Hg] 97.3 F 16 /min Chief Complaint And Reason For Visit From encounter dated '09/18/2024 10:46'. anxiety1 (chief complaint). Description: Pt has chronic anxiety Pt denies any depression or any suicidal or homicidal thought pt denies any crying spells Pt takes xanax PRn groin pain1 (chief complaint). Description: PIt c/o persistent right groin pain for several years Pt states that her screw machine setter accidently went through her right inguinal lymph node during cardiac cath several years ago and she has been having severe pain since then Pt denies any injury. bruising1 (chief complaint). Description: Pt notices some easy bruising lately. Pt denies any bleeding GERD1 (chief complaint). Description: Pt has chronic GERD Pt takes omeprazole and doing ok Pt needsit refilled Plan Of Treatment Date Type Action Status Goal Tobacco cessation counseling completed Goal Tobacco cessation counseling completed Goal Tobacco cessation counseling completed Goal Special diet education compl eted Goal Tobacco cessation counseling completed Goal Tobacco cessation counseling completed Goal Tobacco cessation counseling completed Goal Tobacco cessation counseling completed Goal Tobacco cessation counseling completed Goal Tobacco cessation counseling completed Goal Tobacco cessation counseling completed Goal Tobacco cessation counseling completed Goal Tobacco cessation counseling completed Goal Tobacco cessation counseling completed Goal Tobacco cessation counseling completed Goal Tobacco cessation counseling completed Goal Tobacco cessation counseling completed Goal Special diet education compl eted Goal Special diet education compl eted Goal Special diet education compl eted Goal Special diet education compl eted Goal Special diet education compl eted Goal Special diet education compl eted Goal Special diet education compl eted Goal Special diet education compl eted Goal Special diet education compl eted Referral Referred To: Ronald Cisneros [address], [phone] Ordered: Referrals: Ronald Cisneros. Evaluate and treat ordered Referral Ordered: Rasheeda Gottlieb -Allopathic & Osteopathic Physicians : Plastic Surgery (related to Nevus, non-neoplastic) ordered Referral Referred To: Rasheeda Gottlieb [address] [place] [address], [id number] [phone] Ordered: Referrals: Allopathic & Osteopathic Physicians : Plastic Surgery. Rasheeda Gottlieb. Evaluate and treat ordered Referral Ordered: Dermatology (related to Nevus, non-neoplastic) ordered Referral Ordered: Dermatology (related to Nevus, non-neoplastic) ordered Referral Ordered: Cardiology (related to Bradycardia) ordered Referral Ordered: Referrals: Cardiology. Evaluate and treat ordered Referral Ordered: LUMBAR XRAY AP AND LAT ONLY ordered Referral Referred To: Digna GIL, Michi Salas [address] [facility]
[place] [address] [place] [address], [phone] Ordered: Referrals: Michi Sawyer MD. Evaluate and treat ordered Referral Ordered: Pain Medicine (related to Chronic pain syndrome) ordered Referral Ordered: KODI MENDIOLA -Podiatric Medicine & Surgery Service Providers : Outpatient Coding Specialist (related to Pain in lt ankle) ordered Referral Referred To: KODI MENDIOLA [facility] [facility],[address] [place], [place], [phone] Ordered: Referrals: Podiatric Medicine & Surgery Service Providers : Outpatient Coding Specialist. KODI MENDIOLA. Evaluate and treat ordered Referral Ordered: Mello Craven -Allopathic & Osteopathic Physicians : Internal Medicine : Gastroenterology (related to Irritable bowel syndrome with diarrhea) ordered Referral Referred To: Mello Craven [facility] [place], [place], [phone] Ordered: Referrals: Allopathic & Osteopathic Physicians : Internal Medicine : Gastroenterology. Mello Craven. Evaluate and treat ordered Referral Ordered: MAMMOGRAM, BOTH BREASTS ordered Referral Ordered: Pain Medicine (related to Chronic pain syndrome) ordered Referral Ordered: Referrals: Pain Medicine. Evaluate and treat ordered Referral Ordered: OPERATIVE UPPER GI ENDOSCOPY ordered Referral Ordered: AJ CABALLERO -Podiatric Medicine & Surgery Service Providers : Outpatient Coding Specialist (related to Neuropathy) ordered Referral Ordered: Dermatology (related to Cellulitis of abdominal wall) ordered Referral Ordered: Referrals: Dermatology. Evaluate and treat ordered Referral Ordered: CT THORAX W/O DYE ordered Referral Ordered: AJ CABALLERO -Podiatric Medicine & Surgery Service Providers : Outpatient Coding Specialist (related to Sarmiento's metatarsalgia of rt leg) ordered Referral Referred To: AJ CABALLERO [address] [facility],[address] [place], [place], [phone] Ordered: Referrals: Podiatric Medicine & Surgery Service Providers : Outpatient Coding Specialist. AJ CABALLERO. Evaluate and treat ordered Referral Ordered: MRI ABDOMEN W/O & W/DYE ordered Referral Ordered: Surgery (related to Body mass index (BMI) 45.0-49.9, adult) ordered Referral Ordered: Surgery (related to Body mass index (BMI) 40.0-44.9, adult) ordered Referral Ordered: Referrals: Surgery. Evaluate and treat ordered Referral Ordered: KIZZY CODY (related to Chest pain) ordered Referral Referred To: KIZZY CODY [id number] [facility]
[address] [place], [place], [phone] Ordered: Referrals: KIZZY CODY. Evaluate and treat ordered Referral Ordered: Orthopedic Surgery (related to Pain in right hip) ordered Referral Ordered: Referrals: Orthopedic Surgery. Evaluate and treat ordered Referral Ordered: Nazario Reynoso (related to Other pelvic mass) ordered Referral Referred To: Nazario Reynoso [address] [facility]
[address] [place], [phone] Ordered: Referrals: Nazario Reynoso. Evaluate and treat ordered Referral Ordered: Gilmer Haas (related to Umbilical hernia) ordered Referral Ordered: CT ABDOMEN&PELVIS W/CONTRAST ordered Referral Ordered: Luis Bird (related to Chronic viral hepatitis C) ordered Referral Referred To: Luis Bird [address] [facility]
[address] [place], [phone] Ordered: Referrals: Luis Bird. Evaluate and treat ordered Referral Ordered: DXA BONE DENSITY, AXIAL ordered Referral Ordered: Gilmer Haas (related to Disease of gallbladder, unspecified) ordered Referral Referred To: Gilmer Haas [address] [place], [phone] Ordered: Referrals: Gilmer Haas. Evaluate and treat ordered Referral Ordered: NUC MED HIDA (HEPATOBILIARY) SCAN ordered Referral Ordered: Gastroenterology (related to Chronic viral hepatitis C) ordered Referral Ordered: Referrals: Gastroenterology. Evaluate and treat ordered Referral Ordered: US EXAM, ABDOM, COMPLETE ordered Referral Ordered: Pulmonology (related to Sleep apnea) ordered Referral Ordered: Referrals: Pulmonology. Evaluate and treat ordered Referral Ordered: DOPPLER ECHO EXAM, HEART ordered Referral Ordered: FEMUR XRAY Left ordered Referral Ordered: Orthopedic Surgery (related to Leg pain) ordered Referral Ordered: AP PELVIS AND BILATERAL HIPS XRAY ordered Referral Ordered: Referrals: Orthopedic Surgery ordered Referral Ordered: US VENOUS DOPPLER ordered Referral Ordered: US DUPLEX LOWER EXTREMITY STUDY ordered Referral Ordered: MAMMOGRAM, SCREENING ordered Referral Ordered: COLONOSCOPY AND BIOPSY ordered Appointment Meryl Phillips BOOKED History Of Present Illness Encounter Date Complaint History Of Prese nt Illness anxiety1 Pt has chronic a nxiety Pt denies any depression or any suicidal or homicidal thought pt denies any crying spells Pt takes xanax PRn groin pain1 PIt c/o persiste nt right groin pain for several years Pt states that her screw machine setter accidently went through her right inguinal lymph node during cardiac cath several years ago and she has been having severe pain since then Pt denies any injury. bruising1 Pt notices some easy bruising lately. Pt denies any bleeding GERD1 Pt has chronic G ERD Pt takes omeprazole and doing ok Pt needs it refilled pAF pt has proximal afib. Pt is on amiodarone and metoprolol and eliquis Pt denies any chest pain or palpitation or sob Pt sees cardiology anxiety1 Pt has chronic a nxiety Pt denies any depression or any suicidal or homicidal thought pt denies any crying spells Pt takes xanax PRn IBS Associated sympt oms include anxiety and heartburn. Pertinent negatives include abdominal pain, fatigue, fever and vomiting. Additional information: Pt has IBS-D. Pt states that she is now constipated with viberzi. Pt had benign colonoscopy . weight loss1 Pt has been losi ng weight with wegovy. pt tolerating it ok anxiety1 Pt has chronic a nxiety Pt denies any depression or any suicidal or homicidal thought pt denies any crying spells Pt takes xanax PRn afib Pt has paroxymal afib. Pt takes eliquis, metoprolol and amiodarone and she denies any chest pain or palpitation Pt denies any sob weight loss1 Pt has been losi ng weight with wegovy. pt tolerating it ok anxiety1 Pt has chronic a nxiety Pt denies any depression or any suicidal or homicidal thought pt denies any crying spells Pt takes xanax PRn GERD1 Pt has chronic G ERD Pt takes omeprazole and she needs it refilled weight loss1 Pt has been losi ng weight with wegovy Pt wants refilled. Pt tolerating it ok afib Pt has paroxymal afib. Pt recently went to hospital for rapid afib and she had negative nuclear stress test and TE echo which were ok. Pt is on amiodarone now and her HR has been ok Pt denies any chest pain or palpitation. pt did follow up with Dr Cisneros and was told to follow up in 3 months. Pt needs amiodarone and metoprolol refilled Pt denies any chest pain or palpitation or sob HTN Pt has HTN .Pt i s on metoprolol and irbesartan and her bp has been low around 88/60 at home and she felt slightly dizzy. Pt stopped taking irbesartan and her bp is back to normal now Pt denies any dizziness anxiety1 Pt has chronic a nxiety Pt denies any depression or any suicidal or homicidal thought pt denies any crying spells Pt takes xanax PRn afib1 Pt has paroxymal afib. Pt recently went to hospital for rapid afib and she had negative nuclear stress test and TE echo which were ok. Pt is on amiodarone now and her HR has been ok Pt denies any chest pain or palpitation. pt did follow up with Dr Cisneros and was told to follow up in 3 months weight loss1 Pt has been dana garcia for weight loss. her screw machine setter started her on wegovy several months ago and she has been losing weight with wegovy. IBS-D pt has IBS-D Pt states that viberzi is helping with diarrhea but sometimes she has constipation also with viberzi, Pt has chronic GERD Pt needs omeprazole refilled . aflutter1 Pt has aflutter Pt is on eliquis Pt needs refill Pt has david with new screw machine setter in two weeks anxiety1 Pt has chronic a nxiety Pt denies any depression or any suicidal or homicidal thought Pt denies any crying spells Pt takes xanax BID PRN and doing ok aflutter1 pt recently went to hospital for chest pain and dizziness and she was admitted for aflutter. Pt is on eliquis . Pt denies any chest pain, dizziness palpitation, or sob Pt supposes to take nifedipine but she is not sure if she is on it or not. pt does have history of CHF Pt needs cardiology referral. skin1 pt saw plastic a nd she had biopsy which showed basal cell carcinoma and she will have surgery soon anxiety1 Pt has chronic a nxiety Pt denies any depression or any suicidal or homicidal thought Pt denies any crying spells Pt takes xanax BID PRN and doing ok aflutter1 pt recently went to hospital for chest pain and dizziness and she was admitted for aflutter. Pt was started on eliquis but she is not taking it. Pt denies any chest pain, dizziness palpitation, or sob Pt supposes to take nifedipine but she is not sure if she is on it or not anxiety1 Pt has chronic a nxiety Pt denies any depression or any suicidal or homicidal thought Pt denies any crying spells Pt takes xanax BID PRN and doing ok weight loss1 Pt has been losi ng weight with wegovy .Pt is getting wegovy from cardiology. HTN Pt has HTn pt ta kes irbesartan and her bp is borderline high Pt denies any chest pain or headache anxiety1 Pt has chronic a nxiety Pt denies any depression or any suicidal or homicidal thought Pt denies any crying spells Pt takes xanax BID PRN and doing ok GERD1 Pt has chronic G ERD Pt doing well with omeprazole 40 mg and doing ok. Pt had benign EGD IBS-D Pt has IBS-D pt doing well with viberzi. Pt has not had any diarrhea since starting viberzi. Pt denies any constipation. skin1 Pt has persisten t scabby lesion right side of nasal bridge for several months. Pt denies any bleeding. Pt unable to make to [facility] due to car issue GERD1 Pt has chronic G ERD Pt had benign EGD Pt states that omeprazole 20 mg does not work She wants to go back to 40 mg anxiety1 Pt has chronic a nxiety Pt denies any depression or any suicidal or homicidal thought Pt denies any crying spells Pt takes xanax BID PRN and doing ok IBS-D Pt has chronic n on bloody diarrhea Pt has difficulty holding her bowel movement sometimes . pt denies any abd pain Pt had benign colonoscopy. weight gain1 Pt has been gain ing weight despite after sleeve surgery. Pt states that her screw machine setter just approved her for wegovy 0.25 mg weekly anxiety1 Pt has chronic a nxiety Pt denies any depression or any suicidal or homicidal thought Pt denies any crying spells Pt takes xanax BID PRN and doing ok IBS-D Pt has chronic n on bloody diarrhea Pt has difficulty holding her bowel movement sometimes . pt denies any abd pain t had benign colonoscopy. HTN Pt has HTN Pt ta kes irbesartan Pt states that pharmacy keeps tell her there is no refills . GERD1 Pt has chronic G Erd Pt doing ok with protonix Pt states that insurance no longer cover protonix. Pt has HH and gastritis on EGD. Pt has been off protonix for several weeks and she has poorly controlled GERD anxiety1 Pt has chronic a nxiety Pt denies any depression or any suicidal or homicidal thought Pt denies any crying spells Pt takes xanax BID PRN and doing ok osteopenia1 Pt has osteopeni a Pt takes calcium and D Pt has low D Pt denies any fracture urine1 Pt has glycosuri a. Pt has normal serum glucose. Pt denies any urinary symptoms anxiety1 Pt has chronic a nxiety Pt denies any depression or any suicidal or homicidal thought Pt denies any crying spells Pt takes xanax BID PRN and doing ok GERD1 Pt has chronic G ERD Pt takes protonix and doing ok pt failed pepcid. Pt has daily GERD without protonix nevus1 Pt has recurrent nevus with scab and bleeding right side of nose and she again missed her dermatology david. anxitey1 Pt has chronic a nxiety Pt denies any depression or any suicidal or homicidal thought Pt denies any crying spells Pt takes xanax BID PRN and doing ok CAD Pt has CAD with cardiomyopathy Pt saw cardiology and she is off procardia and she will do annual giving officer and try some new medicine but she does not know the name of it Pt denies any chest pain edema1 Pt no longer has LE edema and she stopped hctz. Her bp is ok anxiety1 Pt has chronic a nxiety Pt denies any depression or any suicidal or homicidal thought Pt denies any crying spells Pt takes xanax BID PRN and doing ok nevus1 Pt has recurrent scabby and bleeding nevus on right face Pt is noncompliant with dermatology CAD Pt has CAD with cardiomyopathy Pt denies any acute chest pain or sob .Pt has not seen cardiology for long time .Pt is not sure what she is taking from cardiology. She told me she saw cardiology recently but not sure when HTN Pt has mild HTN and she notices bilateral lower extremity swelling towards end of the day for several weeks. her bp is borderline high. Pt denies any chest pain or headache HTN Pt has HTN Pt ta kes irbesartan and procardia and her bp is ok Pt denies any chest pain or headache anxiety1 Pt has chronic a nxiety Pt denies any depression or any suicidal or homicidal thought Pt denies any crying spells Pt takes xanax BID PRN and doing ok nevus1 Pt has nevus rig ht side of nose area Pt has not called back to dermatology for david yet Pt had to reschedule her david recently skin1 Pt has recurrent and persistent scabby lesion on right side of nasal bridge. Pt states that her david with dermatology was rescheduled to June 20 HTN Pt has HTN Pt ta kes irbesartan and her bp is borderline. Pt denies any chest pain or headache anxiety1 Pt has chronic a nxiety Pt denies any depression or any suicidal or homicidal thought Pt denies any crying spells Pt takes xanax BID PRN. HTN Pt has HTn pt st ates that 150 mg irbesartan bottomed out her bp so she went back down to 75 mg daily along with procardia and her bp is ok today Pt states that her bp is consistently less than 140/80 at home Pt denies any headache or chest pain anxiety1 Pt has chronic a nxiety Pt denies any depression or any suicidal or homicidal thought Pt denies any crying spells Pt tries to wean down on xanax but she has too much anxiety so she is still on BID of xanax HTN Pt has HTN. Pt t akes procardia and irbesartan Pt has cardiomyopathy Pt is not happy with her screw machine setter. Her bp is high Pt denies any chest pain or headache. chronic Pt has chronic b ack and leg pain Pt is on suboxone but her pain is not well controlled. anxiety1 pt has chronic a nxiety Pt denies any depression or any suicidal or homicidal thought Pt denies any crying spells. Pt takes xanax PRn and doing ok. Pt is trying to wean off xanax but she has been having severe anxiety and she wants to take xanax for another month cardiomyopathy1 Pt has cardiomyo huma with positive nuclear stress test but her angio was negative for CAD. Pt does have angina pain. Her cardiology told her she is not a candidate for PTCA or bypass and opts for medical treatment. Her screw machine setter told her that her enlarged heard is due to chronic pain and lack of pain medication and the stress from it. She used to take opioid for chronic neck and back pain but was stopped by her new neurologist several years ago abruptly. She is on Suboxone now. She did see a new pain management recently but was not given any opioid for her pain. Pt states that she has severe neck and back pain daily. she is out of irbesartan and her bp is high today Pt denies any acute chest pain or sob anxiety1 pt has chronic a nxiety Pt denies any depression or any suicidal or homicidal thought Pt denies any crying spells. Pt takes xanax PRn and doing ok. skin lesion1 Pt has recurrent and persistent scabby lesion on right side of nasal bridge. Pt has not heard from dermatology yet. Pt notices occasional bleeding anxiety1 pt has chronic a nxiety Pt denies any depression or any suicidal or homicidal thought Pt denies any crying spells. Pt takes xanax PRn and doing ok. GERD1 Pt has chronic G ERd Pt doing ok with protonix Pt failed pepcid. CAD Pt has CAD with cardiomyopathy Pt is seeing cardiology Pt just had cardiac cath done which showed blockage. Pt is on jardiance, procardia, crestor and irbesartan currently. Pt denies any chest pain or sob. HLP Pt has HLP Pt is on crestor now pt denies any myalgia iron deficiency1 Pt was told by cardiology that she has iron and b12 deficiency and she needs iron and b12 infusion .I reviewed her lab and her iron and ferritin and hemoglobin and b12 are all in normal range. I am not sure why she needs above infusions. iron1 Pt has low iron and low B12 on recent lab by cardiology pt was told to discuss with me regarding infusions. Pt denies any bleeding skin1 Pt notice a spot right side of nose for several months and it keeps scab over with occasional bleeding. CAD pt has CAD with abnormal stress test. pt has intermittent chest pain Pt denies any acute chest pain. pt denies any sob. pt has cardiac cath scheduled on 01/09/23. Pt also is on crestor ASA and jardiance now. her bp is borderline high with irbesartan anxiety1 Pt has chronic a nxiety Pt denies any depression or any suicidal or homicidal thought pt denies any crying spells. Pt takes xanax PRn and doing ok. hep C Pt has history o f hep c which was treated and her liver ultrasound is benign anxiety1 Pt has chronic a nxiety Pt denies any depression or any suicidal or homicidal thought pt denies any crying spells. Pt takes xanax PRn and doing ok. cardiomyopathy1 Pt sees cardiolo gy for intermittent chest pain Pt denies any acute chest pain Pt had cardiac echo done which showed severe cardiomyopathy .Pt has david with cardiology for stress test this Saturday .Pt feels intermittent sob as well. HTN Pt has HTN Pt ta kes irbesartan and her bp is borderline high Pt denies any headache Hep C Pt has history o f treated hep C Pt denies any abd pain or jaundice. Pt came in contact with someone with positive hep C and hep B recently. She had hepatitis panel done which showed inactive hep C only. Pt states that her cousin visited her who has hep B and C. bradycardia1 Pt has history o f symptomatic bradycardia Pt saw cardiology and she had cardiac echo and EEG and lab work. Pt denies any chest pain or sob anxiety1 Pt has chronic a nxiety Pt denies any depression or any suicidal or homicidal thought Pt denies any crying spells., Pt takes xanax PRn and doing ok HTN Pt has HTN pt turner s been taking 37.5 mg daily but her bp is borderline high Pt denies any chest pain or headache. Pt has gait abnormality due to ankle pain and she finally got her rolling walker. hep c Pt has history o f hep C Pt was treated successfully .Pt states that she came in contact with both hep C ad B recently her cousin came to her house and he has positive hep B. gait1 pt has to ambula te with cane due to chronic back pain and left ankle and foot pain. Pt wants a walker with seat to help with ambulation anxiety1 Pt has chronic a nxiety Pt denies any depression or any suicidal or homicidal thought Pt denies any crying spells., Pt takes xanax PRn and doing ok HTN Pt has HTN, Pt s tates that she 75 mg irbesartan makes her bp drop too low so she is taking 1/2 of 75 mg irbesartan and her bp is ok Pt denies any dizziness. Pt also has bradycardia and she has david with cardiology in 10 days. Pt denies any chest pain or sob or dizziness HTN Pt recently went to ER for chest pain and HTN. Pt had negative EKG and troponin. pt thinks that she the reason for above is due to pain and anxiety Pt does have chronic pain and she sees pain management but she is not on any opioid. Pt used to takes opioid. Pt is on suboxone currently but is not helping controlling her pain. pt has not made david for follow up on pain management yet. Pt denies any chest pain or headache currently. Pt had negative head CT in ER. bradycardia1 Pt has sinus bra dycardia in ER Pt did have chest pain which resolved Pt had negative troponin Pt denies any chest pain currently anemia1 Pt has mild anem ia from lab from ER. Pt denies any blood loss. pain Pt has chronic a nd severe low back and hip pain Pt has neuropathy symptoms Pt has DDD on C and L spine x ray and she also has osteoarthritis on both hip. Pt used to take opioid but she was weaned off by previous neurology and she in on suboxone and she is having severe pain anxiety1 Pt has chronic a nxiety Pt denies any depression or any suicidal or homicidal thought Pt denies any crying spells. HTN Pt has HTN Her b p has been high for the past several weeks Pt denies any chest pain or headache Pt states that the HTN is due to pain pain1 Pt has chronic k nee pain and left ankle pain Pt states tat her left ankle swells up every day Pt was told that she has some left ankle fracture and she was wearing a boot by podiatry for long time but did not help Pt also has neuropathy and she has been ambulating with cane due to leg weakness. Pt wants a rolling walker with seat so she can rest after walking Pt states that her left ankle garrison sometimes. Pt c/o bilateral leg weakness. Pt did see pain management but she is not going back to see her due to not getting opioid. Pt also failed lyrica and neurontin and amitriptyline. Pt now wants to see ortho again . anxiety1 Pt has chronic a nxiety Pt denies any depression or any suicidal or homicidal thought Pt denies any crying spells. Pt takes xanax PRn and doing ok anxiety1 Pt has chronic a nxiety Pt denies any depression or any suicidal or homicidal thought Pt denies any crying spells. Pt takes xanax PRn and doing ok knee pain1 Pt states that l eft knee pain resolved Pt states that she does not want to see ortho anymore. Pt states that left popiteal area swelling resolved. HTN Pt has mild HTN today Pt denies any chest pain or headache Pt states that she is in pain today pain Pt has chronic b ack pain with neuropathy pt denies any loss of bowel or bladder control or saddle area paresthesia knee pain1 Pt c/o acute ons et of painful nodule left popiteal fossa since two weeks ago. Pt states that the nodule has been getting bigger gradually Pt c/o pain Pt went to ER and she had negative duplex venous doppler study of left leg Pt denies any calf pain Pt denies any leg swelling Pt denies any chest pain or sob. Pt denies any knee injury Pt denies any recent travel or bedrest. tubular adenoma1 Pt had colonosc opy done recently which showed tubular adenoma Pt was told to repeat in 5 years Pt has intermittent non bloody diarrhea. Pt denies any abd pain. GERD pt has chronic G ERD Pt had EGD done which showed gastritis and HH. Pt doing ok with protonix. anxiety1 Pt has chronic a nxiety Pt denies any depression or any suicidal or homicidal thought Pt denies any crying spells. Pt takes xanax PRn and doing ok anxiety1 Pt has chronic a nxiety Pt denies any depression or any suicidal or homicidal thought pt denies any crying spells Pt takes xanax PRN an doing ok HTN Pt has HTn pt de nies any chest pain or headache . Pt states that she is in pain pain Pt has chronic b ack and leg pain and neuropathy Pt used to see neurologist and receiving oxycodone for pain but her neurologist no longer prescribe any opioid and she has been on Suboxone but she states that her pain is not well controlled. Pt also has low back pain Pt saw pain management recently who ordered bunch of x rays and told her that her option will be lyrica neurontin or cymbalta for pain and did not want to give her any opioid. ankle pain1 Pt has left ankl e pain and she saw podiatry and had some x ray done and she is wearing boot now. Pt was told that she has bone spur. GERD Pt has chronic G ERD with IBS with diarrhea .Pt needs protonix refilled. Pt has david for EGD and colonoscopy soon anxiety1 Pt has chronic a nxiety .Pt denies any depression or any suicidal or homicidal thought. Pt denies any crying spells. Pt takes xanax PRn and doing ok IBS1 Pt has IBS-D and GERd. Pt is on protonix Pt saw GI and she will undergo EGD and colonoscopy soon anxiety1 Pt has chronic a nxiety .Pt denies any depression or any suicidal or homicidal thought. Pt denies any crying spells. Pt takes xanax PRn and doing ok pain1 Pt has chronic b ack and leg pain and neuropathy Pt used to see neurologist and receiving oxycodone for pain but her neurologist no longer prescribe any opioid and she has been on Suboxone but she states that her pain is not well controlled. Pt also has low back pain Pt wants referral to go to [facility] pain management. Pt denies any loss of bowel or bladder control or saddle area paresthesia anxiety1 Pt has chronic a nxiety .Pt denies any depression or any suicidal or homicidal thought. Pt denies any crying spells. Pt takes xanax PRn and doing ok IBS D Pt has IBSD. pt has david with GI next week ankle1 Pt c/o posterior left ankle tammie and left heel pain for several months Pt denies any radiation of pain to plantar surface. pt denies any paresthesia pt denies any calf pain ,Pt notices intermittent left ankle swelling as well pain Pt has chronic b ack and leg pain and neuropathy Pt used to see neurologist and receiving oxycodone for pain but her neurologist no longer prescribe any opioid and she has been on Suboxone but she states that her pain is not well controlled. Pt also has low back pain Pt wants referral to go to [facility] pain management. Pt denies any loss of bowel or bladder control or saddle area paresthesia anxiety1 Pt has chronic a nxiety .Pt denies any depression or any suicidal or homicidal thought. Pt denies any crying spells. Pt takes xanax PRn and doing ok pain1 Pt has chronic b ack and leg pain and neuropathy Pt used to see neurologist and receiving oxycodone for pain but her neurologist no longer prescribe any opioid and she has been on Suboxone but she states that her pain is not well controlled. Pt also has low back pain Pt wants referral to go to [facility] pain management. Pt denies any loss of bowel or bladder control or saddle area paresthesia diarrhea1 Pt has history o f gastric sleeve surgery and she has chronic gerd Pt has been having non-bloody diarrhea, especially after any food. regardless what type of food. Pt denies any nausea, vomiting, early satiety, etc. Pt did lose some weight recently. breast pain1 Pt has history o f left breast pain, which resolved. Pt had negative diagnostic mammo and ultrasound. Pt denies any redness, warmth, nipple discharge, etc osteopenia1 Pt has osteopeni a Pt denies any fx. Pt takes calcium and D tobacco1 Pt no longer smo lalo Pt denies any hemoptysis, sob or cough. Pt had negative LDCT anxiety1 Pt has chronic a nxiety .Pt denies any depression or any suicidal or homicidal thought. Pt denies any crying spells. Pt takes xanax PRn and doing ok anxiety1 Pt has chronic a nxiety .Pt denies any depression or any suicidal or homicidal thought. Pt denies any crying spells. Pt takes xanax PRn and doing ok chronic pain1 Pt has chronic b ack pain with neuropathy symptoms Pt denies any loss of bowel or bladder control or saddle area paresthesia .Pt is on suboxone currently but pain not well controlled. Pt failed lyrica, amitriptyline and neurontin. osteopenia1 Pt has history o f osteopenia Pt takes calcium and D and. ,Pt denies any fracture. Pt still has not done bone density yet breast1 Pt denies any br east pain Pt has not done diagnostic mammo and ultrasound yet. Pt denies any axillary pain or nodule UTI1 Pt c/o low pelvi c pressure, dysuria, urgency and frequency and frequency for one week. Pt denies any blood in urine Pt denies any fever, chill. anxiety1 Pt has chronic a nxiety. Pt denies any depression or any suicidal or homicidal thought. Pt denies any crying spells. Pt takes xanax PRn and doing ok Pt failed SSRIs breast lump1 Pt c/o left late ral breast nodule with occasional pain for more than one year Pt is noncompliant with mammogram Pt is noncompliant with [employer]. Pt denies any redness, warmth or drainage. Pt states that she went to do the mammo and was told it can not be done because the tech is confused?? GERD1 Pt has chronic G ERD Pt takes Protonix and doing ok Pt denies any abd pain anxiety Pt has chronic a nxiety. Pt denies any depression or any suicidal or homicidal thought. Pt denies any crying spells. Pt takes xanax PRn and doing ok Pt failed SSRIs tobacco1 Pt has long anabela willams smoking history Pt still has not done LDCT yet. Pt denies any hemoptysis, sob or cough. breast1 Pt c/o left meliton t pain for 6 months Pt states that left breast is bigger than right. Pt denies any discoloration, dimpling or any retraction or any nipple discharge. Pt denies any lymph node swelling. Pt still has not done mammo and ultrasound yet. breast lump1 Pt has left meliton st lump. Pt denies any breast pain or retraction or discharge. Pt still has not done mammo yet. tobacco1 Pt no longer smo lalo Pt denies any sob. Pt has not done the chest ct yet. neuropathy1 Pt has chronic p ain and neuropathy Pt stopped taking amitriptyline on her own. pt is looking for pain management .pt is on Suboxone anxiety1 Pt has chronic a nxiety. Pt denies any depression or any suicidal or homicidal thought. Pt denies any crying spells. Pt takes xanax PRn and doing ok Pt failed SSRIs low D Pt has low D. Pt has not done bone density yet D-dimer1 Pt has slightly high D-dimer. Pt denies any calf pain or swelling pt denies any chest pain or sob. Pt denies any recent travel or bedrest anxiety1 Pt has chronic a nxiety. Pt denies any depression or any suicidal or homicidal thought. Pt denies any crying spells. Pt takes xanax PRn and doing ok Pt failed SSRIs HLP Pt has borderlin e high tG. Pt is not on any diet chronic pain1 Pt has chronic p ain. Pt takes suboxone but is not controlling her pain Pt is looking for pain management who will give her opioid. anxiety1 Pt has chronic a nxiety. Pt denies any depression or any suicidal or homicidal thought. Pt denies any crying spells. Pt takes xanax PRn and doing ok Pt failed SSRIs breast pain1 Pt c/o left meliton t pain for 4 months Pt states that left breast is bigger than right. Pt denies any discoloration, dimpling or any retraction or any nipple discharge. Pt denies any lymph node swelling. Pt has not done mammo yet tobacco1 Pt needs LDCT Pt missed her deadline for insurance approval. Pt no longer smoking Pt denies any sob or cough or hemoptysis. UTI1 Pt c/o dysuria, burring and blood in urine for 2 days. Pt denies any flank pain or any fever, chill, nausea, vomiting pt c/o urinary frequency as well. opioid1 Pt run out of op ioid and she developed severe withdraw symptoms including nausea, vomiting, chest pain, headache, tremor, etc. Pt denies any seizure .pt went to Er multiple times and she is currently taking Suboxone per chestnut and she states that her pain is not well controlled but she denies any current acute withdraw symptoms anxiety Pt has chronic a nxiety. Pt denies any depression or any suicidal or homicidal thought. Pt denies any crying spells. Pt takes xanax PRn and doing ok Pt failed SSRIs COVID1 Pt was tested po sitive for COVID two weeks ago. Pt had mild cough only. Pt denies any fever or sob. Pt currently recovered from COVID without any active symptoms .Pt is not vaccinated.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 eralized Anxiety Disorder Special diet education Related t o Body mass index (BMI) 35.0-35.9, adult Increase physical activity Relat ed to Encounter for general adult medical exam w abnormal findings Weight management Related to Enc ounter for general adult medical exam w abnormal findings Increase activity. Related to Hy perlipidemia Follow a low sodium diet. Relate d to Hyperlipidemia Prescribed Activity and Exercise Education Related to Dietary Surveillance and Counseling Prescribed Diet Educ ation/Lifestyle Education Regarding Diet Related to Dietary Surveillance and Counseling Prescribed Activity and Exercise Education Related to Dietary Surveillance and Counseling Prescribed Diet Educ ation/Lifestyle Education Regarding Diet Related to Dietary Surveillance and Counseling Increase physical activity Relat ed to Liver disease Weight management Related to Sonia er disease Prescribed Activity and Exercise Education Related to Dietary Surveillance and Counseling Prescribed Diet Educ ation/Lifestyle Education Regarding Diet Related to Dietary Surveillance and Counseling Increase physical activity Relat ed to Liver disease Weight management Related to Sonia er disease Weight management Related to Ess ential (primary) hypertension Prescribed Diet Educ ation/Lifestyle Education Regarding Diet Related to Dietary Surveillance and Counseling Increase physical activity Relat ed to Essential (primary) hypertension Prescribed Activity and Exercise Education Related to Dietary Surveillance and Counseling Prescribed Activity and Exercise Education Related to Dietary Surveillance and Counseling Prescribed Diet Educ ation/Lifestyle Education Regarding Diet Related to Dietary Surveillance and Counseling Increase physical activity Relat ed to Generalized anxiety disorder Weight management Related to Gen eralized anxiety disorder Prescribed Activity and Exercise Education Related to Dietary Surveillance and Counseling Prescribed Diet Educ ation/Lifestyle Education Regarding Diet Related to Dietary Surveillance and Counseling Increase physical activity Relat ed to Chronic pain syndrome Weight management Related to Chr onic pain syndrome Prescribed Activity and Exercise Education Related to Dietary Surveillance and Counseling Weight management Related to Gen eralized Anxiety Disorder Prescribed Diet Educ ation/Lifestyle Education Regarding Diet Related to Dietary Surveillance and Counseling Increase physical activity Relat ed to Generalized Anxiety Disorder Increase physical activity Relat ed to Essential (primary) hypertension Prescribed Diet Educ ation/Lifestyle Education Regarding Diet Related to Dietary Surveillance and Counseling Prescribed Activity and Exercise Education Related to Dietary Surveillance and Counseling Weight management Related to Ess ential (primary) hypertension Prescribed Activity and Exercise Education Related to Dietary Surveillance and Counseling Prescribed Diet Educ ation/Lifestyle Education Regarding Diet Related to Dietary Surveillance and Counseling Prescribed Diet Educ ation/Lifestyle Education Regarding Diet Related to Dietary Surveillance and Counseling Prescribed Activity and Exercise Education Related to Dietary Surveillance and Counseling Prescribed Activity and Exercise Education Related to Dietary Surveillance and Counseling Prescribed Diet Educ ation/Lifestyle Education Regarding Diet Related to Dietary Surveillance and Counseling Prescribed Activity and Exercise Education Related to Dietary Surveillance and Counseling Prescribed Diet Educ ation/Lifestyle Education Regarding Diet Related to Dietary Surveillance and Counseling Prescribed Activity and Exercise Education Related to Dietary Surveillance and Counseling Prescribed Diet Educ ation/Lifestyle Education Regarding Diet Related to Dietary Surveillance and Counseling Prescribed Activity and Exercise Education Related to Dietary Surveillance and Counseling Prescribed Diet Educ ation/Lifestyle Education Regarding Diet Related to Dietary Surveillance and Counseling Prescribed Activity and Exercise Education Related to Dietary Surveillance and Counseling Prescribed Diet Educ ation/Lifestyle Education Regarding Diet Related to Dietary Surveillance and Counseling Prescribed Activity and Exercise Education Related to Dietary Surveillance and Counseling Prescribed Diet Educ ation/Lifestyle Education Regarding Diet Related to Dietary Surveillance and Counseling Prescribed Activity and Exercise Education Related to Dietary Surveillance and Counseling Prescribed Diet Educ ation/Lifestyle Education Regarding Diet Related to Dietary Surveillance and Counseling Prescribed Activity and Exercise Education Related to Dietary Surveillance and Counseling Prescribed Diet Educ ation/Lifestyle Education Regarding Diet Related to Dietary Surveillance and Counseling Prescribed Activity and Exercise Education Related to Dietary Surveillance and Counseling Prescribed Diet Educ ation/Lifestyle Education Regarding Diet Related to Dietary Surveillance and Counseling Prescribed Diet Educ ation/Lifestyle Education Regarding Diet Related to Dietary Surveillance and Counseling Prescribed Activity and Exercise Education Related to Dietary Surveillance and Counseling Prescribed Activity and Exercise Education Related to Dietary Surveillance and Counseling Prescribed Diet Educ ation/Lifestyle Education Regarding Diet Related to Dietary Surveillance and Counseling Prescribed Activity and Exercise Education Related to Dietary Surveillance and Counseling Prescribed Diet Educ ation/Lifestyle Education Regarding Diet Related to Dietary Surveillance and Counseling Prescribed Activity and Exercise Education Related to Dietary Surveillance and Counseling Prescribed Diet Educ ation/Lifestyle Education Regarding Diet Related to Dietary Surveillance and Counseling Prescribed Activity and Exercise Education Related to Dietary Surveillance and Counseling Prescribed Diet Educ ation/Lifestyle Education Regarding Diet Related to Dietary Surveillance and Counseling Prescribed Activity and Exercise Education Related to Dietary Surveillance and Counseling Prescribed Diet Educ ation/Lifestyle Education Regarding Diet Related to Dietary Surveillance and Counseling Prescribed Activity and Exercise Education Related to Dietary Surveillance and Counseling Prescribed Diet Educ ation/Lifestyle Education Regarding Diet Related to Dietary Surveillance and Counseling Prescribed Diet Educ ation/Lifestyle Education Regarding Diet Related to Dietary Surveillance and Counseling Prescribed Activity and Exercise Education Related to Dietary Surveillance and Counseling Prescribed Diet Educ ation/Lifestyle Education Regarding Diet Related to Dietary Surveillance and Counseling Prescribed Activity and Exercise Education Related to Dietary Surveillance and Counseling Prescribed Activity and Exercise Education Related to Dietary Surveillance and Counseling Prescribed Diet Educ ation/Lifestyle Education Regarding Diet Related to Dietary Surveillance and Counseling Prescribed Activity and Exercise Education Related to Dietary Surveillance and Counseling Prescribed Diet Educ ation/Lifestyle Education Regarding Diet Related to Dietary Surveillance and Counseling Prescribed Activity and Exercise Education Related to Dietary Surveillance and Counseling Prescribed Diet Educ ation/Lifestyle Education Regarding Diet Related to Dietary Surveillance and Counseling Prescribed Diet Educ ation/Lifestyle Education Regarding Diet Related to Dietary Surveillance and Counseling Prescribed Activity and Exercise Education Related to Dietary Surveillance and Counseling Prescribed activity/ exercise education Related to Dietary surveillance and counseling Special diet education Related t o Dietary surveillance and counseling Prescribed activity/ exercise education Related to Dietary surveillance and counseling Special diet education Related t o Dietary surveillance and counseling Decrease caloric intake Related to Dietary surveillance counseling Physical activity counseling Rel ated to Dietary surveillance counseling Physical activity counseling Rel ated to Dietary surveillance counseling Decrease caloric intake Related to Dietary surveillance counseling Physical activity counseling Rel ated to Dietary surveillance counseling Decrease caloric intake Related to Dietary surveillance counseling Assessments Type Assessment Date assessment Generalized Anxiety Disorder Aug assessment Right lower quadrant abdominal t enderness assessment Spontaneous ecchymoses assessment GERD w/o esophagitis assessment Basal cell carcinoma of skin of nose Mental Status Date Cognitive Assessment Orientation - [place] ed to time, place, person, situation.
--- OUTSIDE RECORDS SUMMARY | 2024-10-12 15:58 | XMS_ITS | Clinical Summary ---
Author Organization [facility] [place] Address [address] [place] [address] [address] [place] [address] Phone Care Team Providers Care Golf Cart Repairer Name Role Phone Arturo Flores Primary Care Provider [phone] Gilmer Haas MD Unavailable Giancarlo Ruffin DO Unavailable [phone] Allergies No known active allergies Medications potassium chloride SA (K-DUR) 20 MEQ Tablet Controlled Release 0 02/05/2015 Active losartan (COZAAR) 100 MG Tablet Take 50 mg by mouth daily. 3 02/05/2015 Active escitalopram (LEXAPRO) 20 MG Tablet 3 02/05/2015 Active ALPRAZolam (XANAX) 1 MG Tablet Take 1 mg by mouth 3 times daily as needed. Active oxyCODONE, immediate release, (OXY-IR) 15 MG Tablet Take 15 mg by mouth every 4 hours as needed. Active traMADol (ULTRAM) 50 MG Tablet Take 1 Tab by mouth nightly as needed for Pain. 30 Tab 0 08/12/2015 Active vitamin D (CHOLECALCIFERO L) 1000 UNIT Tablet Take 1 Tab by mouth daily. 30 Tab 3 10/04/2015 Active promethazine (PHENERGAN) 25 MG Tablet Take 1 Tab by mouth every 6 hours as needed for Nausea. 20 Tab 0 11/06/2015 Active pantoprazole (PROTONIX) 40 MG Tablet Delayed Response Take 1 Tab by mouth daily. 30 Tab 0 11/06/2015 Active sucralfate (CARAFATE) 1 GM Tablet Take 1 Tab by mouth 4 times daily (before meals and nightly). 120 Tab 3 11/28/2015 Active D3-1000 1000 UNITS Capsule TAKE 1 CAPSULE DAILY 30 Cap 3 02/28/2016 Active hyoscyamine (LEVSIN) 0.125 MG Tablet Take 1 Tab by mouth 3 times daily. 120 Tab 3 05/16/2016 Active Active Problems Problem Noted Date Diagnosed Date Anxiety 05/04/2015 Chronic back pain 05/04/2015 Hypertension 05/04/2015 Hep C w/o coma, chronic 05/04/2015 Nonalcoholic fatty liver disease 05/04/2015 Nephrolithiasis 05/04/2015 Dyslipidemia 05/04/2015 Diabetes 05/04/2015 Obesity 05/04/2015 Depression 05/04/2015 Rheumatoid arthritis (<HCC>) 05/04/2015 COPD (chronic obstructive pulmonary disease) 10/2015 Immunizations Immunization Administration Dates Next Due PUR PCV-13 03/10/2015(Deferred: Patient Ref used) Family History Medical History Relation Name Comments Dementia Father Diabetes Father Heart Disease Father Lung Cancer Father Parkinsonism Father Skin Cancer Father Breast Cancer Mother Dementia Mother Diabetes Mother Heart Disease Mother Hypertension Mother Skin Cancer Mother Stroke Mother Diabetes Sister 1 Heart Disease Sister 2 Relation Name Status Comments Father Mother Sister 1 Sister 2 Social History Tobacco Use Types Packs/Day Years Used Date Smoking Tobacco: Former Cigarettes 3 30 Smokeless Tobacco: Former Quit: 03/10/2010 Tobacco Cessation:Counseling Given: Yes Alcohol Use Standard Drinks/Week Comments No 0 (1 standard drink = 0.6 oz pur e alcohol) Former drinker Comments No Sex and Gender Information Value Date Recorded Sex Assigned at Not on file Legal Sex Female 5:35 PM CDT Gender Identity Not on file Sexual Orientation Not on file Occupation Industry Job Start Date Job End Date disabled Not on file Not on file Not on file Last Filed Vital Signs Vital Sign Reading Time Taken Comments Blood Pressure 126/92 2017 2:39 PM POLYETHYLENE BAG MACHINE OPERATOR Pulse 76 2017 2:39 PM POLYETHYLENE BAG MACHINE OPERATOR Temperature 36.6 C (97.8 F) 2017 2:39 PM POLYETHYLENE BAG MACHINE OPERATOR Respiratory Rate 16 2017 2:39 PM POLYETHYLENE BAG MACHINE OPERATOR Oxygen Saturation 90% 2017 2:39 PM POLYETHYLENE BAG MACHINE OPERATOR Inhaled Oxygen Concentration - - Weight 97.5 kg (215 lb) 2017 2:39 PM POLYETHYLENE BAG MACHINE OPERATOR Height 162.6 cm (5' 4) 2017 2:39 PM POLYETHYLENE BAG MACHINE OPERATOR Body Mass Index 36.9 2017 2:39 PM POLYETHYLENE BAG MACHINE OPERATOR Plan of Treatment Health Maintenance Due Date Last Done Comments Diabetes: Eye Exam 1963 Diabetes: Foot Exam 1963 Diabetes: Hemoglobin A1c 1963 Mammogram 1963 TdaP Immunization 1963 Pneumococcal Immunization (50+ years) (1 of 2 - PCV) 1982 Cologuard 2008 Immunochemical Fecal Occult Blood 2008 Zoster Immunization (1 of 2) 2013 Diabetes: Nephropathy Screening 03/26/2018 03/26/2017, 12/15/2015, 11/06/2015, Additional history exists Hepatitis B Immunization (1 of 3 - Risk 3-dose series) 2023 Respiratory Syncytial Virus (RSV) Immunization (Adult) (1 - Risk 60-74 years 1-dose series) 2023 SARS-COV-2 Immunization ( season) 2023 Colonoscopy 06/28/2024 06/28/2014 Colorectal Cancer Screening 06/28/2024 Influenza Immunization (#1) 2024 Human Papillomavirus (HPV) Immunization Aged Out No longer eligible based on patient's age to complete this topic Meningococcal Immunization (ACWY) Aged Out No longer eligible based on patient's age to complete this topic Rotavirus Immunization Aged Out No lo nger eligible based on patient's age to complete this topic Procedures Procedure Name Priority Date/Time Associated Diagnosis Comments CREATININE BLOOD W/ GFR STAT 03/26/2017 12:58 PM POLYETHYLENE BAG MACHINE OPERATOR COLONOSCOPY Routine 06/28/2014 from Last 3 Months or Most Recently Relevant to Health Maintenance Results * (ABNORMAL) CREATININE BLOOD W/ GFR (03/26/2017 12:58 PM POLYETHYLENE BAG MACHINE OPERATOR) CREATININE, BLOOD 0.51(L) 0.60 - 1.30 mg/dL 03/26/2017 1:16 PM POLYETHYLENE BAG MACHINE OPERATOR [facility] GFR, EST. NONAFRICAN >60 >=60 03/26/2017 1:16 PM POLYETHYLENE BAG MACHINE OPERATOR [facility] GFR, EST. >60 >=60 03/26/2017 1:16 PM POLYETHYLENE BAG MACHINE OPERATOR [facility] Comment: Creatinine Clearance is the preferred criteria for selecting drug dose adjustments in renally impaired patients. The GFR is provided as addtional pertinent clinical information. GFR is reported in mL/min/1.73 sq m Blood specimen (specimen) Venous Catheter (IV) / Unknown 03/26/2017 12:58 PM POLYETHYLENE BAG MACHINE OPERATOR 03/26/2017 1:01 PM POLYETHYLENE BAG MACHINE OPERATOR us Arturo Flores CHEMISTRY ORDERABLES Final Resul t [facility] [address] [place] [address] * HM COLONOSCOPY (06/28/2014) Arturo Flores PROCEDURE/MINOR SURGICAL ORDERAB LES Final Result from Last 3 Months or Most Recently Relevant to Health Maintenance Insurance MEDICAID [facility] PL[facility] Care Teams Golf Cart Repairer Relationship Specialty Start Date End Date Arturo Flores [address] [place] [address] PCP - General Family Medicine 03/10/15 Gilmer Haas MD [address] [place] [address] 03/30/15 Giancarlo Ruffin DO [address] [place] [address] Gastroenterology 05/04/15
== END 2024-10-12 15:09 | disposition home or self-care (01) ==
PROVIDERS: PCP Emergency Medicine; Visit Provider Emergency Medicine
DX: Z12.31 Encounter for screening mammogram for malignant neoplasm of breast (principal)
CPT/HCPCS: 77063; 77067

== ENCOUNTER 2025-02-15 11:06 | Outpatient (CLI) | payer OTHER, SELFPAY ==
--- NOTE | ~2025-02-15 | CT_ITS ---
EXAMINATION: CT pelvis wo con DATE: 02/15/2025 11:25 INDICATION: Right lower quadrant abdominal pain. TECHNIQUE: Computed tomography (CT) of the pelvis was performed without intravenous contrast. Automated exposure control and iterative reconstruction technique were employed. The dose-length product was 204.71 mGy-cm. COMPARISON: CT abdomen and pelvis 07/08/2020 FINDINGS: There is a left inguinal hernia containing fat. There is diverticulosis of the colon without evidence of diverticulitis. The appendix is normal. There are no dilated loops of bowel. There are no pathologically enlarged lymph nodes. There is no free intraperitoneal fluid. There is severe right hip osteoarthritis and moderate left hip osteoarthritis. There is mild lumbar spondylosis. IMPRESSION: 1. Severe right hip osteoarthritis and moderate left hip osteoarthritis. 2. Left inguinal hernia containing fat. Reviewed, dictated and finalized at location [facility]. [facility]
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
--- OUTSIDE RECORDS SUMMARY | 2025-02-15 13:00 | XMS_ITS | Patient Health Record ---
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 Name Role Phone Del Whitaker Primary Care Provider Siobhan Anderson APRN Unavailable [phone] Sasha Escobar Unavailable [phone] Andree Kaufman APRN Unavailable [phone] Jacquelin Smith Unavailable Hannah Mahmood Unavailable [phone] Brooke Lawson Unavailable [phone] Allergies Allergen (clinical drug ingredient) Drug/Non Drug Allergy documented on EMR Reaction Allergy Type Onset Date Status topiramate Topiramate Unknown Drug Allergy Activ e Results Component Value Reference Range Flag Notes 12 Panel Urine Drug Screen Order date: 02/25/2024 Reviewed date:02/25/2024 08:45:54 AM Interpretation: Performing Lab: Notes/Report: THC neg PAULA neg MOP (OPI) neg AMP neg MET neg BAR neg BZO POS MDMA neg MTD neg OXY neg PCP neg BUP POS Buprenorphine and Metabolite (Urine test) Order date: 02/25/2024 Reviewed date:03/02/2024 08:59:46 AM Interpretation: Performing Lab:[facility], [address], [place], Phone - [phone], Director - PhDAbudu Notes/Report: Clinical Information:[id number]:[id number] Buprenorphine Positive A Confirmatio n performed by Mass Spectrometry Buprenorphine Positive A Buprenorphine Conf, MS, UR 957 Cutoff=10 ng/mL Norbuprenorphine Positive A Norbuprenorphine Conf, MS, UR >2000 Cutoff=10 ng/mL 12 Panel Urine Drug Screen Order date: 03/26/2024 Reviewed date:03/26/2024 10:46:58 AM Interpretation: Performing Lab: Notes/Report: THC NEG PAULA NEG MOP (OPI) NEG AMP NEG MET NEG BAR NEG BZO POS MDMA NEG MTD NEG OXY NEG PCP NEG BUP POS 14 Panel Urine Drug Screen Order date: 10/16/2024 Reviewed date:10/16/2024 08:38:44 AM Interpretation: Performing Lab: Notes/Report: THC neg PAULA neg MOP (OPI) neg AMP neg MET neg BAR neg BZO POS MDMA neg MTD neg OXY neg PCP neg BUP POS TCA neg FTY neg 14 Panel Urine Drug Screen Order date: 11/13/2024 Reviewed date:11/13/2024 08:41:07 AM Interpretation: Performing Lab: Notes/Report: THC neg PAULA neg MOP (OPI) neg AMP neg MET neg BAR neg BZO pos MDMA neg MTD eg OXY neg PCP neg BUP pos TCA neg FTY neg 14 Panel Urine Drug Screen Order date: 02/09/2025 Reviewed date:02/09/2025 08:31:47 AM Interpretation: Performing Lab: Notes/Report: THC neg PAULA neg MOP (OPI) neg AMP neg MET neg BAR neg BZO POS MDMA neg MTD neg OXY neg PCP neg BUP POS TCA neg FTY neg 14 Panel Urine Drug Screen Order date: 08/21/2024 Reviewed date:08/21/2024 08:18:54 AM Interpretation: Performing Lab: Notes/Report: THC neg PAULA neg MOP (OPI) neg AMP neg MET neg BAR neg BZO POS MDMA neg MTD neg OXY neg PCP neg BUP POS TCA neg FTY neg 12 Panel Urine Drug Screen Order date: 05/22/2024 Reviewed date:05/22/2024 11:15:18 AM Interpretation: Performing Lab: Notes/Report: THC neg PAULA neg MOP (OPI) neg AMP neg MET neg BAR neg BZO POS MDMA neg MTD neg OXY neg PCP neg BUP POS 12 Panel Urine Drug Screen Order date: 04/24/2024 Reviewed date:04/24/2024 08:42:33 AM Interpretation: Performing Lab: Notes/Report: THC neg PAULA neg MOP (OPI) neg AMP neg MET neg BAR neg BZO POS MDMA neg MTD neg OXY neg PCP neg BUP POS Buprenorphine and Metabolite (Urine test) Order date: 09/18/2024 Reviewed date:09/24/2024 05:42:34 PM Interpretation: Performing Lab:[facility] [place], [address], [place], Phone - [phone], Director - PhDAbudu Notes/Report: Clinical Information:[id number] Buprenorphine Positive A Confirmatio n performed by Mass Spectrometry Buprenorphine Positive A Buprenorphine Conf, MS, UR >2000 Cutoff=10 ng/mL Norbuprenorphine Positive A Norbuprenorphine Conf, MS, UR >2000 Cutoff=10 ng/mL 12 Panel Urine Drug Screen Order date: 07/22/2024 Reviewed date:07/22/2024 08:15:36 AM Interpretation: Performing Lab: Notes/Report: THC neg PAULA neg MOP (OPI) neg AMP neg MET neg BAR neg BZO POS MDMA neg MTD neg OXY neg PCP neg BUP POS 12 Panel Urine Drug Screen Order date: 06/22/2024 Reviewed date:06/22/2024 08:31:31 AM Interpretation: Performing Lab: Notes/Report: THC neg PAULA neg MOP (OPI) neg AMP neg MET neg BAR neg BZO POS MDMA neg MTD neg OXY neg PCP neg BUP POS 14 Panel Urine Drug Screen Order date: 01/11/2025 Reviewed date:01/11/2025 08:33:09 AM Interpretation: Performing Lab: Notes/Report: THC neg PAULA neg MOP (OPI) neg AMP neg MET neg BAR neg BZO POS MDMA neg MTD neg OXY neg PCP neg BUP POS TCA neg FTY neg 14 Panel Urine Drug Screen Order date: 12/08/2024 Reviewed date:12/08/2024 02:04:57 PM Interpretation: Performing Lab: Notes/Report: THC neg PAULA neg MOP (OPI) neg AMP neg MET neg BAR neg BZO POS MDMA neg MTD neg OXY neg PCP neg BUP POS TCA neg FTY neg 14 Panel Urine Drug Screen Order date: 09/18/2024 Reviewed date:09/18/2024 08:37:17 AM Interpretation: Performing Lab: Notes/Report: THC neg PAULA neg MOP (OPI) neg AMP neg MET neg BAR neg BZO POS MDMA neg MTD neg OXY neg PCP neg BUP POS TCA neg FTY neg Reason For Referral No Information Medications Medication SIG (Take, Route, Frequency, Duration) Notes Start Date End Date Diagnosis (ICD Code) Status Buprenorphine HCl-Naloxone HCl 8-2 MG Film 1 film under the tongue and allow to dissolve Sublingual three times daily; Duration: 30 days 02/09/2025 Opioid use disorder (ICD_10 - F11.90) Active Naloxone HCl 4 MG/0.1ML Liquid as directed Nasally As needed FOR OPIOID OVERDOSE 07/31/2023 Opioid use disorder (ICD_10 - F11.90) Active Metoprolol Succinate ER 25 MG Tablet Extended Release 24 Hour 1 tablet Orally Once a day Active Ergocalciferol 1.25 MG (79027 UT) Capsule 1 capsule Orally; Duration: 30 day(s) Active Ondansetron HCl 4 MG Tablet 1 tablet Orally Once a day; Duration: 30 days 01/04/2023 Opioid use disorder (ICD_10 - F11.90) Active Wegovy 2.4 MG/0.75ML Solution Auto-injector 0.75 mL Subcutaneous Active Eliquis 5 MG Tablet as directed Orally Active Aspirin 81 81 MG Tablet Delayed Release 1 tablet Orally Once a day; Duration: 30 day(s) Active Procardia XL 30 MG Tablet Extended Release 24 Hour 1 tablet Orally Once a day; Duration: 30 day(s) Active valACYclovir HCl 1 GM Tablet 1 tablet Orally Once a day Active Crestor 20 MG Tablet 1 tablet Orally Once a day; Duration: 30 day(s) Active Cyanocobalamin 1000 MCG Tablet 1 tablet Orally Once a day; Duration: 30 day(s) Active Omeprazole 20 MG Capsule Delayed Release 1 capsule 30 minutes before morning meal Orally Once a day; Duration: 30 day(s) Active Jardiance 10 MG Tablet 1 tablet Orally Once a day; Duration: 30 day(s) Active Xanax 1 MG Tablet 1.5 tablet Orally daily Active Social History Tobacco Use: Social History Observation Description Date Details (start date - stop date) Former Smoker NA - NA Sex Observation Social History Observation Description Sex Observation Female Sexual Orientation Social History Observation Description Sexual Orientation Straight or heterose xual Gender Identity Social History Observation Description Gender Identity Female SDOH Assessments Date Tool Assessment Assessment LOINC Value Assessment Notes Goals Interventions 02/10/20 25 PRAPARE (LOINC: 20921-6) Total Score: 6 Date Completed/Upda ignacio: 10/01/19 24 What is your current housing situation? 73622-0 I have housing (YI03782-5) Are you worried about losing your housing? 31845-3 No (LA32-8) What is the highest level of school that you have finished? 78890-2 Less than a high school degree (MF94765-4) What is your current work situation? 06552-9 Otherwise unemployed but not seeking work (ex. 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 Check all that apply 96804-9 I do not have problems meeting my needs Has lack of transportation k ept you from medical appointments, meetings, work or from getting things needed for daily living? 50462-1 No (LA32-8) How often do you see or talk to people that you care about and feel close to? (For example: talking to friends on the phone, visiting friends or family, going to oriental orthodox or club meetings) 45264-9 More than 5 times a week (IJ60118-0) How stressed are you? Stress is when someone feels tense, nervous, anxious, or can\t sleep at night because their mind is troubled 09765-0 Somewhat (MH22274-1) In the past year have you sp ent more than 2 nights in a row in a long term, fpc, snf center, or juvenile correctional facility? 96531-5 No (LA32-8) Do you feel physically and emotionally safe where you currently live? 92658-2 Yes (LA33-6) In the past year, have you b een afraid of your partner or ex-partner? 05844-1 No (LA32-8) Are you a refugee? No What country are you from? [facility] PRAPARE Score: 6 Social History Social Determinants Social Info Question Answer Notes Primary Care Provider Has a primary care provider? Yes PRAPARE Date Completed/Updated: 10/01/2023 What is your current housing situation? I have h ousing Are you worried about losing your housing? No What is the highest level of school that you have finished? Less than a high school degree What is your current work situation? Oth erwise unemployed but not seeking work (ex. 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 Stress is when someone feels tense, nervous, anxious, or can\t sleep at night because their mind is troubled Somewhat In the past year have you sp ent more than 2 nights in a row in a long term, fpc, snf center, or juvenile correctional facility? No Are you a refugee? No What country are you from? [place] Do you feel physically and e motionally safe where you currently live? Yes In the past year, have you b een afraid of your partner or ex-partner? No PRAPARE Score: 6 Miscellaneous Social Info Question Answer Notes Method of learning: Preferred method of learning: Read ing,Discussion Primary Social History Social Info Question Answer Notes Living Arrangement Living Arrangement: Independent Sonia ing Is this a supportive environment? Yes Single Question Alcohol Screening How ma ny times in the past year have you had (4 for women, or 5 for men) or more drinks in a day? 0 Employment Status Employment Status: On Disability Illicit Substance Usage Illicit Substance Usage: Yes Interested in quitting: Yes Substance Used: Prescription Drugs Alcohol Use Alcohol Use Frequency: Never Tobacco Use: Social Info Question Answer Notes Tobacco Control (Standard) Tobacco use: Former smoker Additional Findings: Tobacco user e-cigarette Problems Problem Type SNOMED Code ICD Code Dates Problem Status W/U Status Risk Notes Problem Mixed hyperlipidemia (676935764) Mixed hyperlipidemia (E78.2) Added On:02/07 Active confirmed Problem Tobacco user (670172205) Nicotine dependence, unspecified, uncomplicated (F17.200) Added On:12/26 Active confirmed Problem Anxiety (58790016) Anxiety (F41.9) Added On:02/07 Active confirmed Problem Psychoactive substance dependence (7621081) Chemical dependency (F19.20) Added On:08/03 Active confirmed Problem Overweight (383665271) Over weight (E66.3) Added On:06/22 Active confirmed Problem Obese class I (finding) (775700476669054) Obesity (BMI 30.0-34.9) (E66.9) Added On:02/15 Active confirmed Problem Chronic pain syndrome (945491237) Chronic pain disorder (G89.4) Added On:02/07 Active confirmed Problem Tobacco use (689371543) Tobacco use disorder (F17.200) Added On:02/07 Active confirmed Problem Gastroesophageal reflux disease (856438693) GERD without esophagitis (K21.9) Added On:02/07 Active confirmed Problem Chronic obstructive pulmonary disease (34805866) COPD mixed type (J44.9) Added On:02/07 Active confirmed Problem Body mass index 30+ - obesity (593560119) Body mass index (BMI) of 30.0-30.9 in adult (Z68.30) Added On:11/27 Active confirmed Problem Opioid use disorder (2121155621) Opioid use disorder (F11.99) Added On:06/01 Active confirmed Problem Rheumatoid arthritis in remission (808812930001479) Rheumatoid arthritis in remission (M06.9) Added On:02/07 Active confirmed Problem Primary hypertension (17864460) Primary hypertension (I10) Added On:02/07 Onset Date: 06/15/19 Active confirmed Problem Opioid use disorder (4817295683) Opioid use disorder (F11.90) Added On:02/07 Active confirmed Vital Signs Vital Sign Value Notes Appt Date Heart Rate 57 /min 02/09/2025 Temperature 97.6 degrees Fahrenheit 01/25 Respiratory Rate 16 /min 02/09/2025 Blood pressure diastolic 80 mm Hg Oximetry 98 % 02/09/2025 Height 65 in in 02/09/2025 Blood pressure systolic 138 mm Hg 01/25 Weight 127lbs lbs 02/09/2025 BMI 21.13 kg/m2 02/09/2025 Encounters Date Time Type Facility Location Provider Diagnosis 02/25/20 24 08:40 AM Office Visit, Est Pt., Level 3 (02638) [address] [address] Jacquelin Smith Opioid use disorder F11.90 03/26/19 25 10:40 AM Office Visit, Est Pt., Level 3 (17076) [address] [address] Del Whitaker Opioid use disorder F11.90 and Opioid use disorder F11.90 04/24/19 25 08:40 AM Office Visit, Est Pt., Level 3 (19928) [address] [address] Jenia Heaveren Opioid use disorder F11.99 ; Overweight E66.3 and Tobacco use disorder F17.200 05/23/19 25 11:00 AM MEDICAL NUTRITION, [facility] [place] ([address]) [address] [address] Jenia Heavens Opioid use disorder F11.99 ; Overweight E66.3 and Tobacco use disorder F17.200 06/23/19 25 08:20 AM Office Visit, Est Pt., Level 3 (91934) [address] [address] Jacquelin Smith Opioid use disorder F11.99 and Over weight E66.3 07/23/19 25 08:20 AM Office Visit, Est Pt., Level 3 (58912) [address] [address] Jacquelin Szlufik Opioid use disorder F11.90 and Over weight E66.3 08/22/19 25 08:20 AM [place] ([address]) [address] [address] Sasha Brennannnan Opioid use disorder F11.99 ; Over weight E66.3 and Opioid use disorder F11.90 09/19/19 25 08:40 AM [facility] ([address]) [address] [address] Jacquelin Cierralufik Opioid use disorder F11.99 10/17/19 25 08:20 AM SPEC[facility]EN HANDLING (38066) [address] [address] Andree Mandeep Opioid use disorder F11.99 and Nicotine dependence, unspecified, uncomplicated F17.200 11/14/19 25 08:40 AM Office Visit, Est Pt., Level 3 (62282) [address] [address] Hannah Ela Opioid use disorder F11.90 12/09/19 25 01:20 PM Office Visit, Est Pt., Level 3 (80216) [address] [address] Brooke Lulu Opioid use disorder F11.99 01/12/20 25 08:40 AM Office Visit, Est Pt., Level 3 (68232) [address] [address] Brooke Lulu Opioid use disorder F11.99 02/10/20 25 08:20 AM Office Visit, Est Pt., Level 3 (48191) [address] [address] Brooke Lulu Opioid use disorder F11.90 Assessments Encounter Date Diagnosis (ICD Code) Assessment Notes Treat ment Notes Section Notes 04/24/2024 Overweight (ICD-10 - E66.3) 05/22/2024 Overweight (ICD-10 - E66.3) 06/22/2024 Over weight (ICD-10 - E66.3) 07/22/2024 Over weight (ICD-10 - E66.3) 10/16/2024 Opioid use disorder (ICD-10 - F11.99) 12/08/2024 Opioid use disorder (ICD-10 - F11.99) 01/11/2025 Opioid use disorder (ICD-10 - F11.99) 04/24/2024 Opioid use disorder (ICD-10 - F11.99) 05/22/2024 Opioid use disorder (ICD-10 - F11.99) 06/22/2024 Opioid use disorder (ICD-10 - F11.99) 08/21/2024 Opioid use disorder (ICD-10 - F11.99) 09/18/2024 Opioid use disorder (ICD-10 - F11.99) 07/22/2024 Opioid use disorder (ICD-10 - F11.90) 11/13/2024 Opioid use disorder (ICD-10 - F11.90) 02/09/2025 Opioid use disorder (ICD-10 - F11.90) 02/25/2024 Opioid use disorder (ICD-10 - F11.90) 03/26/2024 Opioid use disorder (ICD-10 - F11.90) 03/26/2024 Opioid use disorder (ICD-10 - F11.90) 04/24/2024 Tobacco use disorder (ICD-10 - F17.200) 05/22/2024 Tobacco use disorder (ICD-10 - F17.200) 08/21/2024 Over weight (ICD-10 - E66.3) 10/16/2024 Nicotine dependence, unspecified, uncomplicated (ICD-10 - F17.200) 08/21/2024 Opioid use disorder (ICD-10 - F11.90) 01/11/2025 Other Patient agrees to take medication as [...] office with questions or concerns. Patient may self-administer their own medications or may self-administer their own oral medications per [facility] Protocol. 07/22/2024 Other Patient agrees to take [...] to contact office with questions or concerns. 02/25/2024 [...] services. Contact office with questions or concerns. 05/22/2024 Other Discussed medication side effects, adverse effects, risks, benefits, as well as interactions. Encouraged non-use of opioids. Has naloxone. Recommended participation in recovery groups and/or counseling services. May contact office with questions or concerns. 06/22/2024 Other Increased risk of RHIA/respiratory depression with combination of benzos and buprenorphine. [...] services. Contact office with questions or concerns. 11/13/2024 Other Patient agrees to take medication as [...] office with questions or concerns. Patient may self-administer their own medications or may self-administer their own oral medications per [facility] Protocol. 09/18/2024 Other Patient agrees to take medication [...] services. Contact office with questions or concerns. 08/21/2024 Other Client to call insurance to [...] the office with any questions or concerns. 02/09/2025 Other Patient agrees to take medication as [...] office with questions or concerns. Patient may self-administer their own medications or may self-administer their own oral medications per [facility] Protocol. 10/16/2024 Other Patient agrees to take medication as prescribed. Discussed medication side effects, adverse effects, risks, benefits, as well as interactions. Encouraged non-use of opioids. Encouraged participation in recovery groups. Patient may contact office with questions or concerns. 12/08/2024 Other Patient agrees to take medication as [...] office with questions or concerns. Patient may self-administer their own medications or may self-administer their own oral medications per [facility] Protocol. Plan Of Treatment No Information Insurance Providers Payer Name Payer Address Payer Phone Subscriber Number Group Number Insured Name Patient Relationship to Insured Coverage Start Date Coverage End Date [facility] Claims Department [address] [place] [id number] Meryl Phillips Self - patient is the insured 4 [facility] Claims Department [address] [place] [id number] AlanRoxaneMeryl Self - patient is the insured 1 4 [facility] Claims Department [address] [place] [address] [id number] Roxane Phillipsela Self - patient is the insured 1 4 MEDICA[employer] [address] [place] [address] [id number] Roxane Phillipsela Self - patient is the insured 4 4 [facility] Claims Department [address] [place] [phone] [id number] PhillipsRoxane joinerela Self - patient is the insured 5 [...] cath procedure 12/2022 Hospitalization History Reason Date(Month/Year) [facility] heart attack 03/15/24 [facility] and 2 broken bones on right foot childbirth
--- OUTSIDE RECORDS SUMMARY | 2025-02-15 13:00 | XMS_ITS | Data Portability ---
Author Organization [facility] Address [address] [place] [phone] Assessment No assessment recorded. Plan of Treatment Reminders Order Date Submit Date Provider Last Modified By Organization Details Last Modified Time Details Appointments None record ed. Lab None record ed. Referral None record ed. Procedures None record ed. Surgeries None record ed. Imaging None record ed. Medication Orders None record ed. Patient TargetsNo targets recorded. Patient InstructionsNo instructions recorded. Reason for Referral None Reported. Problems No Known Problems Procedures Surgical History Date Name Laterality Status Provider Name and Address Organization Details Recorded Time 02/25/19 18 colonoscopy completed Victoriano Arrington MA [facility] 10/23/2019 14:16:23 Gastric Bypass completed Victoriano Arrington MA [facility] 10/23/2019 14:09:27 Total hysterectomy completed Victoriano Arrington MA [facility] 10/23/2019 14:09:47 Imaging Results None recorded. Procedure Notes None recorded. Medical Equipment None Reported. Allergies Allergen ID Allergen Name Allergen Category Reaction Reaction Severity Criticality Documentation Date Start Date Code Code System Note Provider Name and Address Organization Details Recorded Time 595032 Topamax medicatio n Not available Not available Not available 10/23/2019 76692 3 RxNorm [facility] 0 14:08:43 Medications Name Sig Start Date Stop Date Status Note LastModified by Organization Details LastModified Time azelastine 0.05 % eye drops 10/22 completed Not Available Not Available Not Available alprazolam 1 mg tablet active Not Available Not Available No t Available amlodipine 5 mg tablet 1 po daily for high blood presure 10/22 completed Not Available Not Available Not Available omeprazole 40 mg capsule,jaron yed release Take 1 capsule every day by oral route. active Not Available Not Available No t Available amitriptylin e 50 mg tablet 10/22 completed Not Available Not Available Not Available amitriptylin e 25 mg tablet 10/22 completed Not Available Not Available Not Available omeprazole 20 mg capsule,jaron yed release 10/22 completed Not Available Not Available Not Available gabapentin 100 mg capsule 10/22 completed Not Available Not Available Not Available escitalopram 20 mg tablet 10/22 completed Not Available Not Available Not Available Refresh active Not Available Not Avail able Not Available Vitamin D3 active Not Available Not Av ailable Not Available oxycodone 20 mg tablet Take 1 tablet 5 times a day by oral route. active Not Available Not Available No t Available Vitals Date Recorded Body height Body mass index (BMI) Body weight Body temperature Oxygen saturation Heart rate Systolic And Diastolic Provider Name and Address Organization Details Last Updated DateTime 0 161.93 cm 26.1 kg/m2 44586.7 3 g 97.7 [degF] 98 % 68 /min 126/76 mm[Hg] Victoriano Arrington MA [facility] 0 14:20:17 Social History Question Answer Notes LastModified by Organizat ion Details LastModified Time Tobacco Smoking Status Former Smoker cigarettes Victoriano Arrington MA null, [place] - [place] 10/23/2019 14:15:23 How Much Tobacco Do You Smoke? 3+ PPD Information not available 10/23/2019 How Many Years Have You Smoked Tobacco? 37 Information not available 10/23/2019 Sex: Unknown Functional Status Question Answer Note LastModified by Organization D etails LastModified Time What is your level of alcohol consumption? None Information not available 10/23/2019 Mental Status None recorded. Family History Relationship Description Onset Age of this Age Resolved Age Notes LastModified by Organization Details LastModified Time Mother Malignant neoplasm of breast suspected bfalconerma Not available 09/26 14:10:27 Mother Coronary arterioscler osis bfalconerma Not available 09/26 14:11:08 Mother Dementia bfalconerma Not availa ble 10/23/2019 14:11:23 Mother Heart disease bfalconerma Not available 09/26 14:12:21 Mother Hypertensive disorder bfalconerma Not available 09/26 14:12:39 Mother Migraine bfalconerma Not availa ble 10/23/2019 14:13:13 Mother Osteoporosis bfalconerma Not av ailable 10/23/2019 14:13:56 Mother Malignant neoplasm of ovary suspected bfalconerma Not available 09/26 14:14:23 Father Carcinoma in situ of colon bfalconerma Not available 09/26 14:10:47 Father Coronary arterioscler osis bfalconerma Not available 09/26 14:11:08 Father Dementia bfalconerma Not availa ble 10/23/2019 14:11:23 Father Diabetes mellitus bfalconerma Not available 09/26 14:11:47 Father Heart disease bfalconerma Not available 09/26 14:12:21 Father Hypertensive disorder bfalconerma Not available 09/26 14:12:39 Father Kidney disease bfalconerma Not available 09/26 14:12:56 Father Myocardial infarction bfalconerma Not available 14:13:31 Father Osteoporosis bfalconerma Not av ailable 10/23/2019 14:13:56 Father Malignant neoplasm of prostate suspected bfalconerma Not available 09/26 14:14:58 Sister Depressive disorder bfalconerma Not available 09/26 14:11:36 Sister Heart disease bfalconerma Not available 09/26 14:12:21 Medical History Condition Response Anxiety Disorder Y Acid Reflux (GERD) Y Osteoporosis Y Gynecological HistoryNo gynecological history recorded. Obstetrics History GPAL:G 0 P 0 0 0 0 Immunizations Vaccine Type Date Status Note Provider Nam e and Address Organization Details Recorded Time tetanus toxoid, unspecified formulation 02/25/2014 completed Victoriano Arrington MA [facility] 10/23/2019 14:16:02 Past Encounters Encounter ID Performer Location Encounter Start Date Encounter Closed Date Diagnosis/Indication Diagnosis SNOMED-CT Code Diagnosis ICD10 Code Diagnosis IMO Codes Diagnosis Note [id number] MD Yves Tidwell (Adult Med) [address] [place] [phone] 10/23/2019 13:47:25 10/26/2019 21:45:20 Adult health examination 021153443 Z00.00 Good physical condition, no restrictio n. she said that she had negative chest x ray. 2018 had bariatric operation. Form filled out. Health Concerns Section Related Observation LastModified by Organization Detai ls LastModified Time None Recorded Concern Status LastModified by Organization Details LastModified Time None Recorded Advance Directives Directive None Recorded Payers Insurance Date Sequence Insurance Name Policy Number Policy Chand Covered Member ID Chand Member ID Guarantor Name 10/22/2019 1 [facility] - DOS PRIOR TO 2020 (MEDICAID REPLACEMENT - HMO) Meryl Phillips [id number] Meryl Phillips Notes Date Note Type Note Provider Name and Address Organization Details Recorded Time 10/23/2019 text/html ROS as noted in the HPI PE, for day care , allergic to topamax,on omeprazole, alprazolam,and vitamin D, Kathy Gomez MD Attn: Accounting,[address] [place], [address], [facility] - [place] 10/23/2019 14:39:39 OBGyn Episode No OBEpisode recorded.
--- OUTSIDE RECORDS SUMMARY | 2025-02-15 13:00 | XMS_ITS | Clinical Summary ---
Author Organization [facility] Address [facility] [address] [place] [address] [address] [place] [address] Phone Care Team Providers Care Rn Bone Marrow Transplant Name Role Phone Arturo Flores Primary Care Provider [phone] Gilmer Haas MD Unavailable Giancarlo Ruffin DO Unavailable [phone] Allergies No known active allergies Medications [...] Comments Blood Pressure 126/92 2017 2:39 PM DROP HAMMER MECHANIC Pulse 76 2017 2:39 PM DROP HAMMER MECHANIC Temperature 36.6 C (97.8 F) 2017 2:39 PM DROP HAMMER MECHANIC Respiratory Rate 16 2017 2:39 PM DROP HAMMER MECHANIC Oxygen Saturation 90% 2017 2:39 PM DROP HAMMER MECHANIC Inhaled Oxygen Concentration - - Weight 97.5 kg (215 lb) 2017 2:39 PM DROP HAMMER MECHANIC Height 162.6 cm (5' 4) 2017 2:39 PM DROP HAMMER MECHANIC Body Mass Index 36.9 2017 2:39 PM DROP HAMMER MECHANIC Plan of Treatment Health Maintenance Due Date Last Done Comments Diabetes: Eye Exam 1965 Diabetes: Foot Exam 1963 Diabetes: Hemoglobin A1c 1963 TdaP Immunization 1963 Pneumococcal Immunization (50+ years) (1 of 2 - PCV) 1982 Cologuard 2008 Immunochemical Fecal Occult Blood 2008 Respiratory Syncytial Virus (RSV) Immunization (Adult) (1 - Risk 50-74 years 1-dose series) 2013 Zoster Immunization (1 of 2) 2013 Diabetes: Nephropathy Screening 03/26/2018 03/26/2017, 12/15/2015, 11/06/2015, Additional history exists Hepatitis B Immunization (1 of 3 - Risk 3-dose series) 2023 Colonoscopy 06/28/2024 06/28/2014 Colorectal Cancer Screening 06/28/2024 Influenza Immunization (#1) 2024 SARS-COV-2 Immunization ( season) 2024 Human Papillomavirus (HPV) Immunization (No Doses Required) Completed Meningococcal Immunization (ACWY) Aged Out No longer eligible based on patient's age to complete this topic Rotavirus Immunization Aged Out No lo nger eligible based on patient's age to complete this topic Procedures Procedure Name Priority Date/Time Associated Diagnosis Comments CREATININE BLOOD W/ GFR STAT 03/26/2017 12:58 PM DROP HAMMER MECHANIC COLONOSCOPY Routine 06/28/2014 from Last 3 Months or Most Recently Relevant to Health Maintenance Results * (ABNORMAL) Creatinine Blood w/ GFR (03/26/2017 12:58 PM DROP HAMMER MECHANIC) CREATININE, BLOOD 0.51(L) 0.60 - 1.30 mg/dL 03/26/2017 1:16 PM DROP HAMMER MECHANIC [facility] GFR, EST. NONAFRICAN >60 >=60 03/26/2017 1:16 PM DROP HAMMER MECHANIC [facility] GFR, EST. >60 >=60 03/26/2017 1:16 PM DROP HAMMER MECHANIC [facility] Comment: Creatinine Clearance is the preferred criteria for selecting drug dose adjustments in renally impaired patients. The GFR is provided as addtional pertinent clinical information. GFR is reported in mL/min/1.73 sq m Blood specimen (specimen) Venous Catheter (IV) / Unknown 03/26/2017 12:58 PM DROP HAMMER MECHANIC 03/26/2017 1:01 PM DROP HAMMER MECHANIC us Arturo Flores CHEMISTRY ORDERABLES Final Resul t [facility] [address] [place] [address] * HM COLONOSCOPY (06/28/2014) us Arturo Mark PROCEDURE/MINOR SURGICAL ORDERAB LES Final Result from Last 3 Months or Most Recently Relevant to Health Maintenance Insurance MEDICAID [facility] Care Teams Rn Bone Marrow Transplant Relationship Specialty Start Date End Date Arturo Flores [address] [place] [address] PCP - General Family Medicine 03/10/15 Gilmer Haas MD [address] [facility] [address] [place] [address] 03/30/15 Giancarlo Ruffin DO [address] [address] Gastroenterology 05/04/15
--- OUTSIDE RECORDS SUMMARY | 2025-02-15 13:00 | XMS_ITS | Data Portability ---
Author Organization [place] [facility], Main Office Address [address] [place] [address] Care Team Providers Care Clock And Watch Hands Painter Name Role Phone BENJAMIN LOPEZ Primary Care [...] please schedule pt for R knee 2024 [facility], [address] [place], [address], 16:55:11 Procedures None recorded. Surgeries None recorded. Imaging XR, knee, 3 view 2024 [email or web address] [place], [address] [facility] [address], [place], [address], 12:49:51 Medication Orders Voltaren Arthritis Pain 1 % topical gel 2024 [facility] [employer] [id number], [address] [place], [place], [id number], 16:55:11 Patient TargetsNo targets recorded. Patient InstructionsNo instructions recorded. Reason for Referral Physical Therapist Referral for Pain of right knee region R knee please schedule pt for R knee Referring Physician: Herlinda Weathers, Orthopedic Surgery, Encounter Date: 12/16/2024 Results Created Date Observation Date Name Description Value Unit Range Abnormal Flag Note LastModifiedBy Organization Detail LastModifiedTime 04/12/19 23 04/12/2022 XR, ankle , 3 or more view No observ ation record ed. [id number] [facility] [place] [address] [facility] [place], [place], [address], 04/25/2022 13:16:38 11/18/19 25 10/30/2024 US, lower extre mity No observ ation record ed. [email or web address] Not Available 10/27 15:59:07 12/17/19 XR, knee, 3 view No observ ation record ed. [email or web address] [facility] [place] [address], [place], [address], 12/16/2024 15:25:44 Result Notes None recorded. Problems Name Problem SNOMED Code Status Onset Date Resolution Date Notes Provider Name and Address Organization Details Recorded Time Localized, primary osteoarthr itis of the pelvic region and thigh 448022228 Active Not Available [facility] 3 13:14:07 Hypertensi ve disorder 15923370 Active Not Available [facility] 3 13:14:08 Ulcer 116833246 Active Not Available [facility] 3 13:14:08 Donahue's neuroma of right foot 5780189682265 08 Active 2017 Not Available [facility] 3 13:14:07 Pain of left ankle joint 7861495974381 9103 Active 2022 Not Available [facility] 3 13:14:07 Left Achilles tendinitis 2465038282363 02 Active 2022 Not Available [facility] 3 13:14:07 Plantar fasciitis of left foot 4258316151504 9101 Active 2022 Not Available [facility] 13:14:07 Equinus contractur e of the ankle 783517908 Active 2022 Not Available [facility] 3 13:14:07 Pain of right knee region 9337628069088 05 Active 2024 JOSUÉ Garces null, [place] - [place] [employer] [facility] 5 12:08:36 Notes:Some problems listed i n Document: #[id number] could not be added to this patient's chart. Please review this document and add these problems to the patient's chart manually as needed. Problem Notes None recorded. Procedures Surgical History Date Name Laterality Status Provider Name and Address Organization Details Recorded Time procedure on femur completed Not Available [facility] 04/25/2022 13:12:59 Gastric Bypass completed Not Available [facility] 04/25/2022 13:12:59 Hip surgery completed Not Available [facility] 04/25/2022 13:12:59 Imaging Results None recorded. Procedure Notes None recorded. Medical Equipment None Reported. Allergies Allergen ID Allergen Name Allergen Category Reaction Reaction Severity Criticality Documentation Date Start Date Code Code System Note Provider Name and Address Organization Details Recorded Time 60806 Topamax medicatio n Not available Not available Not available 04/25/2022 15228 3 RxNorm Not Available [facility] 13:16:35 35660 succinyls ulfathiaz ole medicatio n Not available Not available Not available 12/16/2024 71566 RxNorm JOSUÉ Garces, [place] - [facility] 5 11:58:45 96139 topiramat e medicatio n other Not available low 01/26/20252020 22568 RxNorm Pt state s she does not know what happe alyssa just I had an aller gic react ion Not Available [facility] - External Data [employer] - prod 5 09:04:55 18556 metronida zole medicatio n rash Not available high 01/26/20252016 6922 RxNorm Not Available [facility] - External Data Service - prod 5 09:05:00 42194 Non-stero idal anti-infl ammatory agent (substanc e) medicatio n gi bleed Not available Not available 01/26/20252022 02115 5008 SNOMED Due to gastr ic sleev [...] Available Not Available Vitals Date Recorded Body mass index (BMI) Body height Oxygen saturation Heart rate Respiratory rate Body weight Systolic And Diastolic Provider Name and Address Organization Details Last Updated DateTime 3 27.8 kg/m2 165.1 cm 98 % 62 /min 16 /min 38644.9 3 g 150/91 mm[Hg] Not Available [facility] 3 13:13:52 Date Recorded Body mass index (BMI) Body height Oxygen saturation Heart rate Respiratory rate Body weight Systolic And Diastolic Provider Name and Address Organization Details Last Updated DateTime 3 27.8 kg/m2 165.1 cm 98 % 58 /min 14 /min 69495.9 3 g 136/92 mm[Hg] Not Available [facility] 3 13:13:53 Date Recorded Body height Body mass index (BMI) Body weight Pain severity - 0-10 verbal numeric rating [Score] - Reported Provider Name and Address Organization Details Last Updated DateTime 12/16/2024 165.1 cm 23.3 kg/m2 04538.93 g 8 JOSUÉ Garces - [facility] [employer] 12/16/2024 11:58:23 Social History Question Answer Notes LastModified by [employer] Details LastModified Time Tobacco Smoking Status Former Smoker Not Available [facility] 04/25/2022 13:12:58 What Is Your Level Of Caffeine Consumption? Occasional [id number] Information not available 04/25/2022 What Was The Date Of Your Most Recent Tobacco Screening? 12/16/2024 [email or web address] Information not available 12/16/2024 Has Tobacco Cessation Counseling Been Provided? No [id number] Information not available 04/25/2022 Sex: Unknown Functional Status Question Answer Note LastModified by [employer] ion Details LastModified Time Do you use any illicit or recreational drugs? No [id number] Information not available 04/25/2022 Do you or have you ever used any other forms of tobacco or nicotine? No [id number] Information not available 04/25/2022 What is your level of alcohol consumption? None [id number] Information not available 04/25/2022 Mental Status None recorded. Family History Relationship Description Onset Age of this Age Resolved Age Notes LastModified by Organization Details LastModified Time Father History of malignant neoplasm [email or web address] Not available 2024 12:02:37 Father Kidney disease Not available 2024 12:04:17 Sister Heart disease [email or web address] Not available 2024 12:02:56 Mother Hypertensive disorder [email or web address] Not available 2024 12:04:01 Medical History Condition Response ARTHRITIS Y CANCER: SPECIFY Y CARDIAC ARRHYTHMIA Y USE OF BLOOD THINNERS Y HEPATITIS / LIVER DISEASE Y HEART DISEASE/HEART PROBLEMS Y OSTEOPOROSIS Y URINARY/BLADDER/KIDNEY PROBLEMS Y BACK / NECK PROBLEMS Y OSTEOARTHRITIS Y HYPERTENSION Y Gynecological HistoryNo gynecological history recorded. Obstetrics History GPAL:G 0 P 0 0 0 0 Past Encounters Encounter ID Performer Location Encounter Start Date Encounter Closed Date Diagnosis/Indication Diagnosis SNOMED-CT Code Diagnosis ICD10 Code Diagnosis IMO Codes Diagnosis Note [id number] Marcelo Mcnally DPM [facility] [place] [address] [place] [phone] 03/27/2022 00:00:00 03/27/2022 17:13:46 [id number] Marcelo Mcnally DPM [facility] [place] [address] [place] [phone] 04/12/2022 00:00:00 04/12/2022 14:47:46 [id number] David Proctor MD [facility] [place] [address] [place] [address] 12/16/2024 11:34:12 12/16/2024 12:37:21 Pain of right knee region 2179489069 87996 M25.561 [id number] Health Concerns Section Related Observation LastModified by Organization Detai ls LastModified Time None Recorded Concern Status LastModified by Organization Details LastModified Time None Recorded Advance Directives Directive None Recorded Payers Insurance Date Sequence Insurance Name Policy Number Policy Chand Covered Member ID Chand Member ID Guarantor Name 01/29/2025 1 [facility] - DOS ON OR AFTER 20 (MEDICAID REPLACEMENT - HMO) Meryl Phillips [id number] Meryl Phillips OBGyn Episode No OBEpisode recorded.
--- OUTSIDE RECORDS SUMMARY | 2025-02-15 13:00 | XMS_ITS | Clinical Summary ---
Author Organization [facility] Address [facility] [place] [address] Care Team Providers Care Teamcenter Consultant Name Role Phone Arturo Flores MD Primary Care Provider [phone] Allergies Active Allergy Reactions Criticality Noted Date Comments Metronidazole Rash,Tachycardia Low 05/20/2022 Hot flash Nsaids GI Bleed 05/20/2022 Due to gastric sleeve, can not take orally. Topiramate Rash,Tachycardia Low 05/20/2022 Hot flash, rash, Medications buprenorphine-na loxone (SUBOXONE) 2-0.[address] under the tongue 3 (three) times daily. Active ALPRAZolam (XANAX) 1 MG tablet Take 1 tablet (1 mg total) by mouth 2 (two) times daily as needed for Anxiety. Active Family History Medical History Relation Comments Arthritis Father COPD Father Cancer Father Diabetes Father Hypertension Father Arthritis Mother COPD Mother Cancer Mother Heart Disease Mother Hypertension Mother Osteoarthritis Mother Rheumatoid Arthritis Mother Stroke Mother Asthma Sister Depression Sister Mental Health Sister Relation Status Comments Father Mother Sister Social History Tobacco Use Types Packs/Day Years Used Date Smoking Tobacco: Never Smokeless Tobacco: Never Alcohol Use Standard Drinks/Week Comments Not Currently 0 (1 standard drink = 0.6 oz pur e alcohol) Comments Unknown Sex and Gender Information Value Date Recorded Sex Assigned at Not on file Legal Sex Female 5:59 PM [employer] Gender Identity Not on file Sexual Orientation Not on file Last Filed Vital Signs Vital Sign Reading Time Taken Comments Blood Pressure 136/91 05/20/2022 6:00 PM CDT Pulse 55 05/20/2022 5:29 PM CDT Temperature 37 C (98.6 F) 05/20/2022 5:29 PM CDT Respiratory Rate 18 05/20/2022 5:29 PM CDT Oxygen Saturation 99% 05/20/2022 6:00 PM CDT Inhaled Oxygen Concentration - - Weight 75.8 kg (167 lb) 05/20/2022 5:29 PM CDT Height 165.1 cm (5' 5) 05/20/2022 5:29 PM CDT Body Mass Index 27.79 05/20/2022 5:29 PM CDT Plan of Treatment Health Maintenance Due Date Last Done Comments Colorectal Cancer Screening Colonoscopy (10 Years) 1963 Annual Physical 1966 Hepatitis C 1981 DTaP, Tdap and Td Vaccines ( 1 - Tdap) 1982 Mammogram Screening 2003 Pneumococcal Vaccine: 50+ Ye ars (1 of 1 - PCV) 2013 Zoster Vaccines (1 of 2) 2013 COVID-19 Vaccine ( - 2024-2 6 season) 2024 Influenza Adult (#1) 2024 RSV Immunization or 60+ Years (1 - 1-dose 75+ series) 2038 Hepatitis A Vaccines Aged Out No long er eligible based on patient's age to complete this topic Meningococcal B Vaccine Aged Out No l onger eligible based on patient's age to complete this topic Meningococcal Vaccine Aged Out No samantha kem eligible based on patient's age to complete this topic RSV Immunizations Under 20 Months Aged Out No longer eligible based on patient's age to complete this topic Insurance Care Teams Teamcenter Consultant Relationship Specialty Start Date End Date Arturo Flores MD PCP - General FAMILY PRACTICE 08/22/21
--- OUTSIDE RECORDS SUMMARY | 2025-02-15 13:00 | XMS_ITS | Clinical Summary ---
Author Organization [facility] Address [address] [place] [address] Care Team Providers Care Restaurant Area Manager Name Role Phone Arturo Flores MD Primary Care Provider [phone] Source Comments [facility],non-owned Affiliates and Associated Physician Practices is amultiple site organization consisting of ambulatory clinics and hospital sitesin [place], [place], [place] and [place]. This disclosure is being madepursuant to the Care Everywhere program and may not contain all information available regarding this patient. 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 Gender Identity Not on file Sexual Orientation [...] 50+ (1 of 2 - PCV) 1982 LUNG CANCER SCREENING 2013 Respiratory Syncytial Virus (RSV) Vaccine Pt: or over 60 yrs (1 - Risk 50-74 years 1-dose series) 2013 ZOSTER VACCINE (1 of 2) 2013 DIABETES-SERUM CREATININE 05/31/20182017, 05/31/2017, 05/30/2017, Additional history exists DIABETES RETINOPATHY SCREENING 04/14/2019 DIABETES-FOOT EXAM WITH MONOFILAMENT 04/14/2019 DIABETES-HGB A1C 04/14/2019 HEPATITIS B VACCINE (1 of 3 - Risk 3-dose series) 2023 DEPRESSION SCREENING 02/26/2024 DIABETES - URINE PROTEIN SCREENING 02/26/2024 COVID-19 VACCINE ( season) 2024 INFLUENZA VACCINE (#1) 2024 HEPATITIS C SCREENING [...] this topic Medical Devices Implanted Type Area Engineering Aid Device Identifier Shelf Expiration Date Model / Serial / Lot Tissue Reinforcement Implanted:Qty: 1 on 05/29/2017 by Bernard Durham MD at [facility] N/A: Abdomen 05/25/2018 [id number] / / Evicel Fibrin Sealant Implanted:Qty: 1 on 05/29/2017 by Bernard Durham MD at [facility] N/A: Abdomen 09/28/2018 [id number] / / [id number] Kit Tissue Clsr Duo Tssl 1 Prefl Syr Implanted:Qty: 1 on 05/29/2017 by Bernard Durham MD at [facility] N/A: Abdomen [email or web address] 04/24/2018 [id number] / / [id number] Procedures Procedure Name Priority Date/Time Associated Diagnosis Comments BASIC METABOLIC PANEL (CALCIUM TOTAL) Routine 05/31/2017 8:58 AM CDT HEPATITIS C REAL-TIME PCR QUANTASURE Routine 07/20/2015 3:11 PM CDT from Last 3 Months or Most Recently Relevant to Health Maintenance Results * (ABNORMAL) BASIC METABOLIC PANEL (CALCIUM TOTAL) (05/31/2017 8:58 AM CDT) Glucose 113 70 - 125 mg/dL 05/31/2017 9:59 AM CDT [facility] Sodium 141 136 - 145 mmol/L 05/31/2017 9:59 AM CDT [facility] Potassium 3.0(LL) 3.4 - 4.5 mmol/L 05/31/2017 9:59 AM CDT [facility] Comment:rechecked Chloride 106 98 - 107 mmol/L 05/31/2017 9:59 AM CDT [facility] CO2 23 22 - 29 mmol/L 05/31/2017 9:59 AM CDT [facility] Calcium 9.5 8.4 - 10.2 mg/dL 05/31/2017 9:59 AM T [facility] Anion Gap 15 10 - 20 mmol/L 05/31/2017 9:59 AM T [facility] BUN 6.5(L) 9.8 - 20.1 mg/dL 05/31/2017 9:59 AM CDT [facility] Creatinine 0.66 0.57 - 1.11 mg/dL 05/31/2017 9:59 AM T [facility] eGFR by MDRD >60 >60 mL/min/1.7 3m2 05/31/2017 9:59 AM T [facility] eGFR by MDRD >60 >60 mL/min/1.7 3m2 05/31/2017 9:59 AM T [facility] Blood BLOOD SPECIMEN / Unknown Lab Venipuncture / Unknown 05/31/2017 8:58 AM CDT 05/31/2017 9:00 AM CDT Bernard Durham MD LAB - CHEMISTRY ORDERABLES F inal Result Performing Organization Address City/State/[facility] de Phone Number [facility] [address] * (ABNORMAL) HEPATITIS C REAL-TIME PCR QUANTASURE (07/20/2015 3:11 PM CDT) Pathologist [facility] Hepatitis C Virus RNA PCR Quantitative [id number](H ) <15 IU/mL [facility] Hepatitis C Virus RNA Log IU/mL 6.04(H) <1.18 Log IU/mL [facility] See Note [facility] Comment: The analytical performance characteristics of this assay have been determined by [employer]. The modifications have not been cleared or approved by the FDA. This assay has been validated pursuant to the CLIA regulations and is used for clinical purposes. This test was performed using the YOU(R)AmpliPrep/ YOU(R)TaqMan(R)HCV Test,v2.0. For more information on this test, go to: http://education.Zipano/faq/VDM08w5 (This link is being provided for informational/ educational purposes only.) REPORT COMMENT: FASTING:NO Test Performed at: [employer] [facility] [address] [place] [address] FIGUEROA HAWKINS DO,MPH 07/20/2015 3:11 PM CDT 07/20/2015 3:13 PM CDT us Marlena Yates HANDER IN-VESSEL BUILDER LAB - SEROLOGY ORDER FIONA Final Result [facility]) [address] from Last 3 Months or Most Recently Relevant to Health Maintenance Insurance [facility] SELF PAY NO INSURANCE Member Subscriber Plan / Payer (Ef fective for All Dates) Name:Meryl Hernández Member ID:Not on file Relation to Subscriber:Not on file Name:MERYL HERNÁNDEZ Subscriber ID:Not on file (Home) Address: [address] [place] [id number] Payer ID:Not on file Group ID:Not on file Type:Self Pay Address: [place], [place] Advance Directives * Full Code (Latest Code Status on File) Date Activated Date Inactivated Comments 05/30/2017 5:48 PM 06/01/2017 12:45 AM Care Teams Restaurant Area Manager Relationship Specialty Start Date End Date Arturo Flores MD [address] [facility] [address] [place] [address] PCP - General Family Medicine 10/08/16
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
--- OUTSIDE RECORDS SUMMARY | 2025-02-15 13:01 | XMS_ITS | Encounter Summary ---
Author Organization [facility] Address [address] [place] [address] Care Team Providers Care Psychology Physician Name Role Phone Arturo Flores MD Primary Care Provider [phone] Reason for Visit * Reason Onset Date Comments Follow-up 12/31/2016 Encounter Details Date Type Department Care Team (Late st Contact Info) Description 12/31/2016 Telephone [facility] Management Services [address] [place] [address] [place] [address] [address] Follow-up Social History Tobacco Use Types Packs/Day Years Used Date Smoking Tobacco: Former Cigarettes 3 25 1 984 - 2008 Smokeless Tobacco: Never Alcohol Use Standard Drinks/Week Comments No 0 (1 standard drink = 0.6 oz pur e alcohol) Comments Unknown Sex and Gender Information Value Date Recorded Sex Assigned at Not on file Legal Sex Female 3:04 PM V BELT SKIVER Gender Identity Not on file Sexual Orientation Not on file documented as of this encounter Miscellaneous Notes * Telephone Encounter - Jael River LPN - 12/31/2016 11:08 AM V BELT SKIVER Pt called to remind of needing to [...] 2015 and copy of pathology requested form [facility] as previously ordered by dr nichole. Jael River LPN 12/31/2016 11:15 AM V BELT SKIVER documented in this encounter Plan of Treatment Not on file documented as of this encounter Visit Diagnoses Not on filedocumented in this encounter Additional Health Concerns Infection Onset Date Last Indicated Resolved Time COVID-19 Under Investigation 07/29/2020 07/29/2020 07/30/2020 3:10 AM CDT documented as of this encounter Care Teams Psychology Physician Relationship Specialty Start Date End Date Arturo Flores MD [address] [facility] [address] [place] [address] PCP - General Family Medicine 10/08/16 documented as of this encounter
--- OUTSIDE RECORDS SUMMARY | 2025-02-15 13:01 | XMS_ITS | Encounter Summary ---
Author Organization [facility] Address [address] [place] [address] Care Team Providers Care Hardware Assembler Name Role Phone Arturo Flores MD Primary Care Provider [phone] Reason for Visit * Reason Onset Date Comments Follow-up 11/23/2016 Encounter Details Date Type Department Care Team (Late st Contact Info) Description 11/23/2016 Telephone [facility] Weight Management Services [address] 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
== END 2025-02-15 11:07 | disposition home or self-care (01) ==
PROVIDERS: PCP Emergency Medicine; Visit Provider Surgery
DX: K40.90 Unilateral inguinal hernia, without obstruction or gangrene, not specified as recurrent (principal); M16.0 Bilateral primary osteoarthritis of hip
CPT/HCPCS: 72192